=== PATIENT | female | born 1940 | race Caucasian/White ===

== ENCOUNTER 2020-02-25 08:02 | Outpatient (REF) | payer MEDICARE, OTHER, SELFPAY ==
--- NOTE | 2020-02-25 08:06 | MM_ITS ---
EXAMINATION: MM SCREENING DIGITAL BREAST TOMOSYNTHESIS, BILATERAL CLINICAL INFORMATION: Screening. Asymptomatic. The lifetime risk of breast cancer based on the Tyrer-Cuzick Model is 2.0%. COMPARISON: Mammography: February 19, 2019 and studies dating back to March 20, 2012 TECHNIQUE: Digital breast tomosynthesis is performed in both the craniocaudal and mediolateral oblique views along with computer-aided detection (CAD). Synthesized 2D images are generated from the tomosynthesis. FINDINGS: There are scattered areas of fibroglandular density (ACR BI-RADS breast composition Category b). There are no significant masses, abnormal calcifications, or other abnormalities. MM/MM tomosynthesis screening BI IMPRESSION: There are no significant changes from prior study. ASSESSMENT: BI-RADS 1: Negative RECOMMENDATION: Routine annual mammography screening. This patient's information was entered into a reminder system with a target due date for their next mammogram.
== END 2020-02-25 08:03 | disposition home or self-care (01) ==
LOC: HO.MAMMO 08:02
PROVIDERS: PCP Internal Medicine; Visit Provider Internal Medicine
DX: Z12.31 Encounter for screening mammogram for malignant neoplasm of breast (principal)
CPT/HCPCS: 77063; 77067

== ENCOUNTER 2021-02-23 07:53 | Outpatient (REF) | payer MEDICARE, OTHER, SELFPAY | END 2021-02-23 07:54 | disposition home or self-care (01) | LOC: HO.MAMMO 07:53 | PROVIDERS: PCP Internal Medicine; Visit Provider Internal Medicine | DX: Z13.89 Encounter for screening for other disorder (principal) ==

== ENCOUNTER 2021-03-23 07:20 | Outpatient (REF) | payer MEDICARE, OTHER, SELFPAY ==
--- NOTE | ~2021-03-23 | MM_ITS ---
EXAMINATION: MM SCREENING DIGITAL BREAST TOMOSYNTHESIS, BILATERAL CLINICAL INFORMATION: Screening. Asymptomatic. The lifetime risk of breast cancer based on the Tyrer-Cuzick Model is 2%. COMPARISON: Mammography: 02/25/2020, 02/19/2019, 02/06/2018 TECHNIQUE: Digital breast tomosynthesis is performed in both the craniocaudal and mediolateral oblique views along with computer-aided detection (CAD). Synthesized 2D images are generated from the tomosynthesis. FINDINGS: There are scattered areas of fibroglandular density (ACR BI-RADS breast composition Category b). There are no significant masses, abnormal calcifications, or other abnormalities. Parenchymal pattern is similar to prior exams. No developing density. There is a dermal lesion again noted overlying posterior upper left breast on MLO view. MM/MM tomosynthesis screening BI IMPRESSION: No mammographic evidence of malignancy. ASSESSMENT: BI-RADS 2: Benign RECOMMENDATION: Routine annual mammography screening. This patient's information was entered into a reminder system with a target due date for their next mammogram.
== END 2021-03-23 07:21 | disposition home or self-care (01) ==
LOC: HO.MAMMO 07:20
PROVIDERS: Visit Provider Internal Medicine
DX: Z12.31 Encounter for screening mammogram for malignant neoplasm of breast (principal)
CPT/HCPCS: 77063; 77067

== ENCOUNTER 2022-04-05 07:24 | Outpatient (REF) | payer MEDICARE, OTHER, SELFPAY ==
--- NOTE | ~2022-04-05 | MM_ITS ---
EXAMINATION: MM SCREENING DIGITAL BREAST TOMOSYNTHESIS, BILATERAL CLINICAL INFORMATION: Screening. Asymptomatic. The lifetime risk of breast cancer based on the Tyrer-Cuzick Model is 1%. COMPARISON: Mammography: 03/23/2021, 02/25/2020, 02/19/2019 TECHNIQUE: Digital breast tomosynthesis is performed in both the craniocaudal and mediolateral oblique views along with computer-aided detection (CAD). Synthesized 2D images are generated from the tomosynthesis. FINDINGS: There are scattered areas of fibroglandular density (ACR BI-RADS breast composition Category b). There are no significant masses, abnormal calcifications, or other abnormalities. Parenchymal pattern is similar to prior studies. There is no developing density or architectural abnormality. The axilla and skin contours are unremarkable. No significant changes. MM/MM tomosynthesis screening BI IMPRESSION: No mammographic evidence of malignancy. ASSESSMENT: BI-RADS 1: Negative RECOMMENDATION: Routine annual mammography screening. This patient's information was entered into a reminder system with a target due date for their next mammogram.
== END 2022-04-05 07:25 | disposition home or self-care (01) ==
LOC: HO.MAMMO 07:24
PROVIDERS: PCP Internal Medicine; Visit Provider Internal Medicine
DX: Z12.31 Encounter for screening mammogram for malignant neoplasm of breast (principal)
CPT/HCPCS: 77063; 77067

== ENCOUNTER 2023-05-14 10:46 | Inpatient (IN) | payer MEDICARE, OTHER, SELFPAY ==
--- NOTE | ~2023-05-14 | XR_ITS ---
EXAMINATION: XR KNEE, RIGHT CLINICAL INFORMATION: History of fall with knee pain COMPARISON: None available. TECHNIQUE: Four views of the right knee. FINDINGS: Bones are diffusely osteopenic. No acute fractures, subluxation or joint effusion. Mild osteophyte formation at patellofemoral and tibiofemoral compartments. Chondrocalcinosis of the menisci. There are peripheral vascular calcifications. XR/XR knee RT 3V IMPRESSION: * No acute osseous injury at the right knee. * There is chondrocalcinosis and mild osteoarthrosis of the right knee.
--- NOTE | ~2023-05-14 | XR_ITS ---
Examination: Left knee and left tibia and fibula. CLINICAL INDICATION: Status post fall with pain. COMPARISON: None recent. TECHNIQUE: Left tibia and fibula 2 views. Left knee 2 views. FINDINGS: LEFT KNEE: There is loss of medial and patellofemoral compartment joint space with mild periarticular spurring. No loose bodies, acute fracture, dislocation or subluxation seen. No abnormal joint effusion seen. LEFT TIBIA AND FIBULA: There is diffuse osteopenia. There is no visible acute fracture, dislocation or subluxation seen the soft tissues are normal. XR/XR tibia fibula LT 2V IMPRESSION: Mild degenerative changes left knee joint. There is no visible acute fracture or dislocation left lower leg or left knee. Diffuse osteopenia.
--- NOTE | ~2023-05-14 | XR_ITS ---
EXAMINATION: XR RIBS, BILATERAL CLINICAL INFORMATION: Fall. COMPARISON: None available. TECHNIQUE: 3 views of the bilateral ribs were obtained. FINDINGS: Lungs are clear. No consolidation, pneumothorax, or pleural effusion. The cardiomediastinal silhouette and pulmonary vasculature are normal. Osseous structures are unremarkable. Ribs are intact. No fractures are identified. XR/XR ribs BI 3V IMPRESSION: Unremarkable chest examination. Unremarkable right rib exam.
--- NOTE | ~2023-05-14 | XR_ITS ---
Examination: Left knee and left tibia and fibula. CLINICAL INDICATION: Status post fall with pain. COMPARISON: None recent. TECHNIQUE: Left tibia and fibula 2 views. Left knee 2 views. FINDINGS: LEFT KNEE: There is loss of medial and patellofemoral compartment joint space with mild periarticular spurring. No loose bodies, acute fracture, dislocation or subluxation seen. No abnormal joint effusion seen. LEFT TIBIA AND FIBULA: There is diffuse osteopenia. There is no visible acute fracture, dislocation or subluxation seen the soft tissues are normal. XR/XR knee LT 2V IMPRESSION: Mild degenerative changes left knee joint. There is no visible acute fracture or dislocation left lower leg or left knee. Diffuse osteopenia.
--- NOTE | ~2023-05-14 | XR_ITS ---
EXAMINATION: XR CHEST CLINICAL INFORMATION: Fall right rib pain COMPARISON: Chest radiograph from 03/09/2017 TECHNIQUE: Frontal view of the chest was obtained. FINDINGS: Slight bibasilar atelectasis, left greater than right. No pneumothorax. Trachea is midline. Cardiac mediastinal silhouette is not enlarged. Aorta demonstrates tortuosity with atherosclerotic calcifications. No large pleural effusion. Osseous structures are intact. Soft tissues are unremarkable. XR/XR chest 1V IMPRESSION: Slight bibasilar atelectasis, left greater than right.
--- NOTE | ~2023-05-14 | CT_ITS ---
EXAMINATION: CT head/brain wo IV con CLINICAL INFORMATION: Reason for Exam fall COMPARISON: None. TECHNIQUE: Contiguous axial imaging was performed from the skull base to vertex without intravenous contrast. Sagittal and coronal reformatted images were obtained. This CT examination was performed using dose optimization techniques as appropriate, variously including the following: * Automated exposure control * Adjustment of mA and/or kV according to patient size (this includes techniques or standardized protocols for targeted exams where dose is matched to indication/reason for exam; i.e. extremities or head) Use of iterative reconstruction technique DLP: 615.5 mGy-cm FINDINGS: Moderate global cerebral volume loss with small appearance of the bilateral hippocampi and ex vacuo dilatation of the temporal horns that can be correlated clinically for Alzheimer's disease. Mild cerebellar atrophy. Patchy periventricular and deep white matter hypoattenuation is nonspecific but likely reflects sequelae of mild to moderate chronic microangiopathy. No territorial loss of olguin-white differentiation. Plaque along the carotid siphons. No acute intracranial hemorrhage or extra-axial fluid collection. No mass lesion, significant mass effect, or herniation pattern. Lens replacements. Dependent retention cyst in the left maxillary sinus. Mild right sphenoid sinus mucosal disease with somewhat lobulated soft tissue with curvilinear calcifications along the floor, presumed mycetoma. Chronic sclerotic wall thickening of the right sphenoid sinus becerra compatible with chronic sinusitis. Some dependent aerated debris in the posterior right ethmoid air cell. No mastoid effusion. Osseous structures are intact. CT/CT head/brain wo IV con IMPRESSION: 1. No CT evidence of acute intracranial injury. 2. Moderate global cerebral volume loss with small appearance of the bilateral hippocampi that can be correlated clinically for Alzheimer's disease. Mild cerebellar atrophy. Mild to moderate chronic microangiopathy changes. 3. 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
[2023-05-14 11:03] VITALS: BP 129/58; PULSE 58; RESP 19; TEMP 36.6; O2SAT 95; BMI 26.6
--- NOTE | 2023-05-14 11:05 | ED.WEAKNESS ---
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 Pain in abdomen after urination. Generalized weakness. A&O x 3. Negative neuro exam. No CP or SOB HX: dementia, afib, not taking blood thinner. Patient normally live at independent living facility get limited help from caregiver about 2 hours a week help, patient took a shower by herself walked out of the shower and fell next to her bed, declined hitting her head, no blood thinner. Related Data Home Medications Medication Instructions Recorded Confirmed donepezil 5 mg tablet 5 mg PO DAILY 02/10/22 hydralazine 50 mg tablet 50 mg PO TID 02/10/22 lisinopril 20 mg tablet 20 mg PO BID 02/10/22 memantine 5 mg tablet 5 mg PO BID 02/10/22 metoprolol succinate 25 mg 25 mg PO DAILY 02/10/22 tablet,extended release 24 hr rivaroxaban 15 mg tablet (Xarelto) 15 mg PO DAILY 02/10/22 Allergies Allergy/AdvReac Type Severity Reaction Status Date / Time No Known Allergies Allergy Verified 05/14/23 11:02 [No Known Allergies*] Review of Systems Review of Systems: All other systems are reviewed and are negative Constitutional: Reports as per HPI and Reports no additional constitutional complaints Eyes: Reports as per HPI and Reports no additional eye complaints Reports system reviewed and no additional complaints, except as documented Cardiovascular: Reports as per HPI and Reports no additional cardiovascular complaints Respiratory: Reports as per HPI and Reports no additional respiratory complaints Gastrointestinal: Reports as per HPI and Reports no additional gastrointestinal complaints Genitourinary: Reports no additional female genitourinary complaints Musculoskeletal: Reports no additional musculoskeletal complaints Skin/Breast: Reports system reviewed and no additional complaints, except as docu Psychiatric: Reports no additional psychiatric complaints Endocrine: Reports no additional endocrine complaints Hematologic/Lymphatic: Reports no additional hematologic/lymphatic complaints Allergic/Immunologic: Reports no additional allergic/immunologic complaints Reports system reviewed and no additional complaints, except as documented and Reports Abnormal speech present [facility] Social History Social History Advance Directives: No Advance Directives Information Provided: Yes Physical Exam Vital Signs: Vital Signs: Last Vital Signs Temp 97.8 F 05/14/23 15:55 Pulse 60 05/14/23 15:55 Resp 20 05/14/23 15:55 BP 159/70 H 05/14/23 15:55 Pulse Ox 98 05/14/23 15:55 O2 Del Method Room Air 05/14/23 15:55 BMI result Body Mass Index 26.6 Vital signs have been reviewed and appear to be correct. Blood pressure elevated. Heart rate normal. Respiratory rate normal. Temperature normal. Oxygen saturation normal. Appearance: Alert. Oriented X2 Not to time. No acute distress. Head: Normal external exam. Normocephalic. Atraumatic. No Cobb signs noted. No raccoon eyes noted Eyes: PERRLA. EOMI. Conjunctiva and sclera normal. Eyelids normal. ENT: TM's Normal. Pharynx normal. Uvula midline. Moist mucous membranes. No trismus noted. No drooling noted. No muffled voice noted. Neck: Normal inspection. Neck supple. FROM. No adenopathy. Thyroid Normal. No meningeal signs. No neck mass noted. CVS: Normal heart rate and rhythm. Heart sound normal. No murmurs noted. Pulses normal throughout. Respiratory: No respiratory distress. Painless inspiration. Breath sounds normal. No wheezes/rales/rhonchi noted. Chest nontender. No accessory muscle usage noted or decreased air movement noted. Abdomen: Soft and nontender. Bowel sounds normal in all 4 quadrants. No distention noted. No organomegaly noted. No visible injury noted. Back: No CVA tenderness. Full range of motion noted. Skin: Skin warm and dry. Normal skin color. Normal skin turgor. No rashes/lesions/lacerations noted. Extremities: No lower extremity edema. Extremities exhibit normal range of motion. Extremities nontender. Neuro: Oriented X2. Cranial nerve exam: II-XII are grossly intact No motor deficit. No sensory deficit. Reflexes normal. Const: General: cooperative, no acute distress, alert and awake Nutritional Appearance: well nourished Orientation/consciousness: oriented to person, oriented to place and patient oriented x3 Limitations: no limitations HEENT: Head: Yes normal to inspection and Yes atraumatic Ears: external ears normal General nose exam: Normal external nose present Face and sinus: Yes normal facial exam Eyes: General: appearance normal, both eyes and all related structures Alignment and Position: alignment normal Periorbital: periorbital findings normal Eyelids: Yes eyelids normal Conjunctivae: conjunctivae normal Sclerae: sclerae normal Neck: Neck: Yes normal visual inspection and Yes full ROM Resp: Effort & Inspection: normal respiratory effort and able to speak in complete sentences Auscultation: clear to auscultation bilaterally Cardio: Rate: regular rate Rhythm: regular rhythm Neuro: General: oriented to person, oriented to place, patient oriented x3 and moves all extremities Cognition (Neuro): normal cognition Gait exam (Neuro): Normal gait present Sensory Exam: Normal double simultaneous stimulation for sensation Extrem: General: Yes normal to inspection, Yes full ROM and Yes capillary refill normal Psych: Appearance: grossly normal Mental Status: mental status grossly normal Speech and movement: Normal speech and movement present Affect: normal affect Attitude: cooperative Thought process: Normal thought process present Thought content: Normal thought content present Insight: Good insight present (Psych) Judgement: Good judgement present (Psych) Course Course Course Narrative: 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 Pain in abdomen after urination. Generalized weakness. Negative neuro exam. No CP or SOB HX: dementia, afib, not taking blood thinner. Patient normally live at independent living facility get limited help from caregiver about 2 hours a week help, patient took a shower by herself walked out of the shower and fell next to her bed patient declined hitting her head, LOC, no blood thinner. RME: NAD, LS CTA, A&O to person and place, KAYE x 4 equally with good strength RME done by Flor Reevaluation(s) Reevaluation #1: acute rhabdomyolysis will admit for IV hydration and renal function monitoring. Time: 15:07 Medications Administered Discontinued Medications Generic Name Dose Route Start Last Admin Trade Name Freq PRN Reason Stop Dose Admin Sodium Chloride 1,000 mls @ 999 mls/hr 05/14/23 12:27 05/14/23 12:49 Ns IV 05/14/23 13:27 999 mls/hr .[id number] ONE Administration Medical Decision Making Differential Diagnosis Differential Diagnoses: The differential diagnosis associated with the presentation includes ( Rhabdomyolysis, ACS, pneumonia, pneumothorax, dehydration, UTI, severe anemia, electrolyte abnormality.) Admission/Observation Consideration of admission/observation: Escalation of care including admission/observation considered Consult Healthcare Provider Management of the patient was discussed with: Hospitalist ( Dr. Berg) Lab Data MDM Lab Attestation statement: I reviewed the patient's lab results. 05/14/23 12:47 05/14/23 12:47 Labs: Lab Results 05/14/23 05/14/23 05/14/23 Range/Units 12:27 12:47 14:08 WBC 13.3 H (4.8-10.8) X10*3/uL RBC 4.43 (4.20-5.50) X10*6/uL Hgb 13.4 (12.0-16.0) g/dl Hct 40.9 (37.0-47.0) % MCV 92.3 (80.0-98.0) fL MCH 30.2 (27.0-33.0) pg MCHC 32.8 (31.0-35.0) g/dl RDW 14.1 (11.0-16.0) % Plt Count 229 (160-400) X10*3/uL MPV 10.8 (9.4-12.3) fL Immature Gran % (Auto) 0.5 H (0.0-0.4) % Neut % (Auto) 84.1 H (45-73) % Lymph % (Auto) 7.1 L (20-40) % Barber % (Auto) 6.8 (2-11) % Eos % (Auto) 0.8 (0-4) % Baso % (Auto) 0.7 (0-2) % Lymph # (Auto) 0.9 L (1.2-4.9) X10*3/uL Barber # (Auto) 0.9 (0.1-1.2) X10*3/uL Eos # (Auto) 0.1 (0.0-0.4) X10*3/uL Baso # (Auto) 0.1 (0.0-0.2) X10*3/uL Abs Immat Gran (auto) 0.07 H (0.00-0.03) X10*3/uL Absolute Neuts (auto) 11.2 H (2.0-8.3) x10*3/uL Absolute Nucleated RBC 0.000 (0.0-0.012) X10*3/uL Nucleated RBC % (auto) 0.0 (0.0-0.2) /100WBC Sodium 134 L (135-145) mmol/L Potassium 3.9 (3.3-5.1) mmol/L Chloride 103 (96-108) mmol/L Carbon Dioxide 22 (22-29) mmol/L Anion Gap 13 (12-20) BUN 20 H (9-16) mg/dL Creatinine 0.72 (0.5-1.4) mg/dL Estim Creat Clear Calc 58.1 Estimated GFR > 60 Random Glucose 89 (60-115) mg/dL Calcium 9.4 (8.4-10.2) mg/dL Total Bilirubin 1.3 H (0.0-1.0) mg/dL AST 97 H (5-31) U/L ALT 28 (0-31) U/L Alkaline Phosphatase 92 (39-117) U/L Total Creatine Kinase 3977 H (26-140) U/L Troponin I High Sens (<3.5-17.0) ng/L B-Natriuretic Peptide 600 H (<100) pg/mL Total Protein 7.6 (6.5-8.0) g/dL Albumin 4.1 (3.5-5.0) g/dL Urine Color Yellow Urine Appearance Clear Urine pH 6.0 (5.0-9.0) Ur Specific Isle 1.010 (1.005-1.025) Urine Protein 30 (1+) H (Neg-Trace) mg/dL Urine Glucose (UA) Negative (Negative) mg/dL Urine Ketones Negative (Negative) mg/dL Urine Blood Moderate (2+) H (Negative) Urine Nitrite Negative (Negative) Ur Leukocyte Esterase Negative (Negative) Urine RBC 0-2 (0-2) /HPF Urine WBC 0-5 (0-5) /HPF Ur Squamous Epith Cells 0-2 (0-2) /HPF Urine Bacteria None Seen (None Seen) Hyaline Casts 0-2 (0-2) /LPF Influenza Type A (PCR) NEGATIVE (Negative) Influenza Type B (PCR) NEGATIVE (Negative) RSV RNA Qual (PCR) NEGATIVE (Negative) SARS-CoV-2 RNA (RT-PCR) NEGATIVE (Negative) 05/14/23 Range/Units 15:27 WBC (4.8-10.8) X10*3/uL RBC (4.20-5.50) X10*6/uL Hgb (12.0-16.0) g/dl Hct (37.0-47.0) % MCV (80.0-98.0) fL MCH (27.0-33.0) pg MCHC (31.0-35.0) g/dl RDW (11.0-16.0) % Plt Count (160-400) X10*3/uL MPV (9.4-12.3) fL Immature Gran % (Auto) (0.0-0.4) % Neut % (Auto) (45-73) % Lymph % (Auto) (20-40) % Barber % (Auto) (2-11) % Eos % (Auto) (0-4) % Baso % (Auto) (0-2) % Lymph # (Auto) (1.2-4.9) X10*3/uL Barber # (Auto) (0.1-1.2) X10*3/uL Eos # (Auto) (0.0-0.4) X10*3/uL Baso # (Auto) (0.0-0.2) X10*3/uL Abs Immat Gran (auto) (0.00-0.03) X10*3/uL Absolute Neuts (auto) (2.0-8.3) x10*3/uL Absolute Nucleated RBC (0.0-0.012) X10*3/uL Nucleated RBC % (auto) (0.0-0.2) /100WBC Sodium (135-145) mmol/L Potassium (3.3-5.1) mmol/L Chloride (96-108) mmol/L Carbon Dioxide (22-29) mmol/L Anion Gap (12-20) BUN (9-16) mg/dL Creatinine (0.5-1.4) mg/dL Estim Creat Clear Calc Estimated GFR Random Glucose (60-115) mg/dL Calcium (8.4-10.2) mg/dL Total Bilirubin (0.0-1.0) mg/dL AST (5-31) U/L ALT (0-31) U/L Alkaline Phosphatase (39-117) U/L Total Creatine Kinase 3291 H (26-140) U/L Troponin I High Sens 54.6 H* (<3.5-17.0) ng/L B-Natriuretic Peptide (<100) pg/mL Total Protein (6.5-8.0) g/dL Albumin (3.5-5.0) g/dL Urine Color Urine Appearance Urine pH (5.0-9.0) Ur Specific Isle (1.005-1.025) Urine Protein (Neg-Trace) mg/dL Urine Glucose (UA) (Negative) mg/dL Urine Ketones (Negative) mg/dL Urine Blood (Negative) Urine Nitrite (Negative) Ur Leukocyte Esterase (Negative) Urine RBC (0-2) /HPF Urine WBC (0-5) /HPF Ur Squamous Epith Cells (0-2) /HPF Urine Bacteria (None Seen) Hyaline Casts (0-2) /LPF Influenza Type A (PCR) (Negative) Influenza Type B (PCR) (Negative) RSV RNA Qual (PCR) (Negative) SARS-CoV-2 RNA (RT-PCR) (Negative) Independent Interpretation I performed an independent interpretation of an: EKG ( Normal sinus rhythm at 57 beats per minute sinus bradycardia with premature sinus bradycardia at 57 beats per minute with PACs, no change from prior EKG.) and CT Scan ( head: No acute intracranial pathology.) Radiology Impression Discussion of test interpretation with radiology: I have reviewed the radiologist's reading. Discharge Plan Discharge Clinical Impression: Rhabdomyolysis, Fall Patient Disposition: Admitted As Inpatient
--- NOTE | 2023-05-14 11:12 | ECG_ITS ---
Test Reason : fall Blood Pressure : / mmHG Vent. Rate : 057 BPM Atrial Rate : 057 BPM P-R Int : 170 ms QRS Dur : 086 ms QT Int : 472 ms P-R-T Axes : 077 001 025 degrees QTc Int : 459 ms Sinus bradycardia with Premature atrial complexes Otherwise normal ECG When compared with ECG of 09-MAR-2017 07:59, Premature atrial complexes are now Present QT has lengthened Referred By: Laura Ayala Electronically Signed By:FIDEL MCGOVERN MD
[2023-05-14] MEDS: 0.9 % Sodium Chloride 1,000 ML 999 ML IV ×2 (12:49→16:29)
[2023-05-14 12:54] LABS: MANUAL DIFF FLAG NO
[2023-05-14 12:57] LABS: Basophils Absolute Auto 0.1 X10*3/uL (0.0-0.2); Basophils Percent Auto 0.7 % (0-2); Eosinophils Absolute Auto 0.1 X10*3/uL (0.0-0.4); Eosinophils Percent Auto 0.8 % (0-4); Hematocrit 40.9 % (37.0-47.0); Hemoglobin 13.4 g/dl (12.0-16.0); Imm Gran Abs Auto 0.07 X10*3/uL (0.00-0.03); Imm Gran Pct Auto 0.5 % (0.0-0.4); Lymphocytes Absolute Auto 0.9 X10*3/uL (1.2-4.9); Lymphocytes Percent Auto 7.1 % (20-40); Mean Corpuscular HGB Conc 32.8 g/dl (31.0-35.0); Mean Corpuscular Hemoglobin 30.2 pg (27.0-33.0); Mean Corpuscular Volume 92.3 fL (80.0-98.0); Mean Platelet Volume 10.8 fL (9.4-12.3); Monocytes Absolute Auto 0.9 X10*3/uL (0.1-1.2); Monocytes Percent Auto 6.8 % (2-11); Neutrophils Absolute Auto 11.2 x10*3/uL (2.0-8.3); Neutrophils Percent Auto 84.1 % (45-73); Platelet Count 229 X10*3/uL (160-400); Red Blood Count 4.43 X10*6/uL (4.20-5.50); Red Cell Distribution Width 14.1 % (11.0-16.0); White Blood Count 13.3 X10*3/uL (4.8-10.8)
[2023-05-14 13:10] LABS: Influenza A PCR NEGATIVE (Negative); Influenza B PCR NEGATIVE (Negative); Resp Syncy Virus RNA Qual PCR NEGATIVE (Negative); SARS COV2 PCR INHOUSE NEGATIVE (Negative)
[2023-05-14 13:14] LABS: Alanine Aminotransferase 28 U/L (0-31); Albumin Level 4.1 g/dL (3.5-5.0); Alkaline Phosphatase 92 U/L (39-117); Anion Gap 13 (12-20); Aspartate Amino Transferase 97 U/L (5-31); Bilirubin Total 1.3 mg/dL (0.0-1.0); Blood Urea Nitrogen 20 mg/dL (9-16); Calcium 9.4 mg/dL (8.4-10.2); Carbon Dioxide 22 mmol/L (22-29); Chloride 103 mmol/L (96-108); Creatinine Clr Calc Pharmacy 58.1; Estimated Glomerular Filt Rate > 60; Glucose Random 89 mg/dL (60-115); Potassium 3.9 mmol/L (3.3-5.1); Sodium 134 mmol/L (135-145); Total Protein 7.6 g/dL (6.5-8.0)
[2023-05-14 13:18] LABS: B Type Natriuretic Peptide 600 pg/mL (<100)
[2023-05-14 14:18] LABS: Appearance Urine Clear; Color Urine Yellow; Glucose Urine UA Negative (Negative); Leukocyte Esterase Urine Negative (Negative); Nitrite Urine Negative (Negative); UMIC TRIGGER UACC YES; Urine Blood Moderate (2+) (Negative); Urine Ketones Negative (Negative); Urine Protein 30 (1+) mg/dL (Neg-Trace)
[2023-05-14 14:27] LABS: Bacteria Urine None Seen (None Seen); Hyaline Casts Urine 0-2 /LPF (0-2); RBC Urine 0-2 /HPF (0-2); Squamous Epithelial Cell Urine 0-2 /HPF (0-2); WBC Urine 0-5 /HPF (0-5)
[2023-05-14 15:55] VITALS: BP 159/70; PULSE 60; RESP 20; TEMP 36.6; O2SAT 98
[2023-05-14 16:01] LABS: Troponin-I High Sensitivity 54.6 ng/L (<3.5-17.0)
--- NOTE | 2023-05-14 16:09 | PM.IMHP ---
History of Present Illness Date of Service: 05/14/23 Attending physician on admission: Ken Dorado Chief Complaint: Fall at home Pt is an 82-year-old female with a PMH significant for?unspecified dementia, HTN, HLD, paroxysmal AFib no longer on anticoagulation, and recurrent UTIs who presents to the ED for evaluation of left-sided chest and leg pain after mechanical fall at home. Patient with unspecified dementia at baseline, lives at [facility] living at [facility] with visiting home connect lpn 3 times a week for 1 1/2 hours. Aide arrived at apartment earlier today to help pt take a showe and found the pt on the floor of the bathroom. Pt had apparently taken a shower on her own and fallen when attempting to get out. Pt was found awake and alert, apparently at baseline mentally. She denied LOC or head strike. Reports she slipped getting out of the shower. Was on the floor for an unknonw amount of time. Pt also reports left-sided rib and leg pain, particularly from the knee to ankle. Denies chest pain/pressure, palpitations. Shortness of breath. Denies fever, chills, nausea, vomiting, abdominal pain. In the ED pt was Labs were significant for leukocytosis of 13.3, sodium 134, bilirubin 1.3, AST 97, CPK 3977 with repeat 3291 after fluids, initial troponin 54.6, BNP elevated 600. UA positive for urine protein of 30, moderate urine blood, negative for nitrites and leukocyte esterase no bacteria seen. CXR showed slight bibasilar atelectasis, left greater than right. Rib x-ray pending. CT?showed no evidence of acute intracranial injury, but did show moderate global cerebral volume loss, mild cerebral atrophy, and mild to moderate chronic microangiopathy. EKG demonstrated bradycardia 57 with PACs but without significant ST elevations or depressions. Pt was treated with 2 L IVF. Pt will be admitted to the hospital for treatment further evaluation of rhabdomyolysis in the setting of mechanical fall at home. Review of Systems Review of Systems: Mechanical fall at home Left rib pain Left knee and lower leg pain No chest pain/pressure, palpitations Denies SOB No fever, chills, N/V, diarrhea, abdominal pain PMFSH Medical History Paroxysmal A-fib HTN (hypertension) HLD (hyperlipidemia) Dementia, unspecified, without behavioral disturbance Social History Household Members: Other Housing: Assisted Living Facility Do you presently have visiting nurse or other home services: No Patient Tobacco Use Status: Former Tobacco user Quit Date: 20 years ago Tobacco use type: Cigarette Years Smoked: 10 Smoked in Last 30 Days: No Patient Interested in Nicotine Replacement: No Patient Given Instructions on How to Stop Smoking: No Second Hand Smoke Exposure: No Use of substances other than those prescribed or required for medical reasons: No Currently Displaying Signs/Symptoms of Drug Intoxication Withdrawal: No Any prior treatment program specific to substance use: No Have you been hit, kicked, punched, or otherwise hurt by someone within the past year? If so, by whom?: No Do you feel safe in your current relationship?: No Is there a partner from a previous relationship who is making you feel unsafe now?: No Are you made to feel afraid or neglected: No Advance Directives: No Advance Directives Information Provided: Yes Do you have thoughts of harming others: None Do you have a plan to hurt others: No Plan Recently lost weight without trying: No Eating poorly because of decreased appetite: No Nutrition Risks: No Nutritional Risk Patient : No : No Poor oral hygiene: No Meds Allergies Allergy/AdvReac Type Severity Reaction Status Date / Time No Known Allergies Allergy Verified 05/14/23 11:02 [No Known Allergies*] Home Medications Medication Instructions Recorded Confirmed Last Taken Type hydralazine 50 mg tablet 50 mg PO BID 02/10/22 05/14/23 05/13/23 History lisinopril 20 mg tablet 20 mg PO BID 02/10/22 05/14/23 05/13/23 History memantine 5 mg tablet 5 mg PO BID 02/10/22 05/14/23 05/13/23 History metoprolol succinate 25 mg 25 mg PO DAILY 02/10/22 05/14/23 05/13/23 History tablet,extended release 24 hr aspirin 81 mg chewable tablet 81 mg PO DAILY 05/14/23 05/14/23 05/13/23 History Physical Exam Vital Signs and Narrative: Vital Signs: Last Vital Signs Temp 97.8 F 05/14/23 15:55 Pulse 60 05/14/23 15:55 Resp 20 05/14/23 15:55 BP 159/70 H 05/14/23 15:55 Pulse Ox 98 05/14/23 15:55 O2 Del Method Room Air 05/14/23 15:55 BMI result Body Mass Index 26.6 Constitutional: Alert, pleasantly confused, in no acute distress. Mental Status: Oriented to person and partly to place and situation, not to time. Eyes: Pupils are equal, round, and reactive to light. Ear, Nose, and Throat: Oropharynx clear, mucous membranes moist. Ears and nose without deformities. Trachea midline. Respiratory: Clear to auscultation bilaterally. No wheezing, rales, or rhonchi. Cardiovascular: S1, S2 regular. 3/6 murmur heard at left sternal border. Gastrointestinal: Abdomen soft, non-tender, non-distended. Normal bowel sounds. Neurologic: Cranial nerves II-XII are grossly intact bilaterally. No focal neurological deficits. Moves all extremities spontaneously. Skin: Warm, dry. Musculoskeletal: Tenderness to palpation of left side of chest wall. Extremities: No edema. Areas of ecchymosis on upper left forearm. Tenderness to palpation of lateral aspect of knee. Psychiatric: Pleasantly confused, coorperative. Results Labs 05/15/23 05:49 05/15/23 05:49 Labs: Laboratory Results - last 24 hr 05/14/23 05/14/23 05/14/23 12:27 12:47 14:08 MCV 92.3 MCH 30.2 MCHC 32.8 RDW 14.1 Plt Count 229 MPV 10.8 Immature Gran % (Auto) 0.5 H Neut % (Auto) 84.1 H Lymph % (Auto) 7.1 L Harvey % (Auto) 6.8 Eos % (Auto) 0.8 Baso % (Auto) 0.7 Lymph # (Auto) 0.9 L Harvey # (Auto) 0.9 Eos # (Auto) 0.1 Baso # (Auto) 0.1 Abs Immat Gran (auto) 0.07 H Absolute Neuts (auto) 11.2 H Absolute Nucleated RBC 0.000 Nucleated RBC % (auto) 0.0 Anion Gap 13 Estim Creat Clear Calc 58.1 Estimated GFR > 60 Random Glucose 89 Calcium 9.4 Total Bilirubin 1.3 H AST 97 H ALT 28 Alkaline Phosphatase 92 Total Creatine Kinase 3977 H B-Natriuretic Peptide 600 H Total Protein 7.6 Albumin 4.1 Urine Color Yellow Urine Appearance Clear Urine pH 6.0 Ur Specific [place] 1.010 Urine Protein 30 (1+) H Urine Glucose (UA) Negative Urine Ketones Negative Urine Blood Moderate (2+) H Urine Nitrite Negative Ur Leukocyte Esterase Negative Urine RBC 0-2 Urine WBC 0-5 Ur Squamous Epith Cells 0-2 Urine Bacteria None Seen Hyaline Casts 0-2 Influenza Type A (PCR) NEGATIVE Influenza Type B (PCR) NEGATIVE RSV RNA Qual (PCR) NEGATIVE SARS-CoV-2 RNA (RT-PCR) NEGATIVE 05/14/23 15:27 MCV MCH MCHC RDW Plt Count MPV Immature Gran % (Auto) Neut % (Auto) Lymph % (Auto) Harvey % (Auto) Eos % (Auto) Baso % (Auto) Lymph # (Auto) Harvey # (Auto) Eos # (Auto) Baso # (Auto) Abs Immat Gran (auto) Absolute Neuts (auto) Absolute Nucleated RBC Nucleated RBC % (auto) Anion Gap Estim Creat Clear Calc Estimated GFR Random Glucose Calcium Total Bilirubin AST ALT Alkaline Phosphatase Total Creatine Kinase 3291 H B-Natriuretic Peptide Total Protein Albumin Urine Color Urine Appearance Urine pH Ur Specific [place] Urine Protein Urine Glucose (UA) Urine Ketones Urine Blood Urine Nitrite Ur Leukocyte Esterase Urine RBC Urine WBC Ur Squamous Epith Cells Urine Bacteria Hyaline Casts Influenza Type A (PCR) Influenza Type B (PCR) RSV RNA Qual (PCR) SARS-CoV-2 RNA (RT-PCR) Imaging Radiologist's Impressions: Impressions Chest X-Ray 05/14/23 11:25 IMPRESSION: Slight bibasilar atelectasis, left greater than right. Assessment and Plan (1) Rhabdomyolysis: Status: Acute Plan Pt is an 82-year-old female with a PMH significant for?unspecified dementia, HTN, HLD, paroxysmal AFib no longer on anticoagulation, and recurrent UTIs who presents to the ED for evaluation of left-sided chest and leg pain after mechanical fall at home. Pt will be admitted to the hospital for treatment further evaluation of rhabdomyolysis in the setting of mechanical fall at home. Rhabdomyolysis In the setting of unwitnessed fall at home Creatinine kinase 3977 with repeat 3291 after IVF UA clear yellow Patient received 2 L IVF in ED Will place on maintenance fluids at 100 mls/hr Follow CPK PT consult Musculoskeletal pain Pt complains of left-sided rib and lower leg pain X-ray of ribs pending Will get x-ray of left knee and lower leg Analgesics for pain management PT consult Leukocytosis WBCs 13.3 times presentation Likely reactionary, secondary to fall and rhabdomyolysis No source of bacterial infection: UA negative, CXR negative, patient afebrile No indication for antibiotics at this time Elevated BNP Likely secondary to rhabo No hx of CHF, appears euvolemic, CXR clear Treat as above Dementia unspecified CT of head moderate global cerebral volume loss with small appearance of bilateral hippocampi that can be correlated clinically for Alzheimer's disease, also found mild cerebral atrophy with mild to moderate chronic microangiopathy changes Patient appears to be at baseline according to family Continue memantine Paroxysmal AFib Was taken off Xarelto 6 months ago due to fall risk Continue metoprolol HTN Continue hydralazine, lisinopril DNR/DNI Attending:?Dr. Dordao DVT Prophylaxis: Lovenox Pt will require a hospitalization of at least two nights for treatment of?acute traumatic rhabdomyolysis in the setting of mechanical fall at home. Patient required aggressive IVF repletion, close monitoring of labs, and PT evaluation for safe disposition home. Quality Stroke Does the patient have a stroke diagnosis?: No VTE Prior VTE?: No VTE Risk Level:: Medical - moderate - high VTE Device Contraindication: Treatment Not Indicated VTE Drug Contraindication: N/A - Med Ordered
--- NOTE | 2023-05-14 17:16 | PHA.MEDREC ---
Pharmacy Consult ? Medication Reconciliation Pharmacy has completed the medication reconciliation.patients daughter brought in rx bottles. Medication confirmed. Cynthia [facility] Winder
[2023-05-14 17:48] VITALS: BP 180/80; PULSE 65; RESP 18; O2SAT 95
[2023-05-14 18:12] LABS: Troponin-I High Sensitivity 49.8 ng/L (<3.5-17.0)
[2023-05-14] MEDS: Enoxaparin Sodium 40 MG/0.4 ML SYRINGE SUBCUT (18:27)
[2023-05-14] MEDS: Metoprolol Succinate ER 25 MG TAB.ER.24H PO (18:28)
[2023-05-14] MEDS: 0.9 % Sodium Chloride 1,000 ML 100 ML IVCONT (18:31)
[2023-05-14 19:39] VITALS: BP 159/69; PULSE 68; RESP 18; TEMP 36.1; O2SAT 96
[2023-05-14 19:54] VITALS: BMI 27.6
[2023-05-14] MEDS: Acetaminophen 325 MG TABLET 650 MG PO (20:30)
[2023-05-14] MEDS: Melatonin 3 MG TABLET 6 MG PO (20:31)
[2023-05-14] MEDS: Docusate Sodium 100 MG CAPSULE PO (20:31)
[2023-05-14] MEDS: Memantine HCl 5 MG TABLET PO (20:31)
[2023-05-14] MEDS: hydrALAZINE HCl 50 MG TABLET PO (20:31)
[2023-05-14] MEDS: lisinopriL 20 MG TABLET PO (20:31)
[2023-05-15] VITALS (7 sets, daily range): BP systolic 120–165; BP diastolic 57–77; PULSE 51–63; RESP 16–18; TEMP 36–37.1; O2SAT 93–96
[2023-05-15] MEDS: 0.9 % Sodium Chloride 1,000 ML 100 ML IVCONT ×2 (03:52→14:34)
[2023-05-15] MEDS: Memantine HCl 5 MG TABLET PO ×2 (07:28→20:52)
[2023-05-15] MEDS: Metoprolol Succinate ER 25 MG TAB.ER.24H PO (07:28)
[2023-05-15] MEDS: hydrALAZINE HCl 50 MG TABLET PO ×2 (07:28→20:52)
[2023-05-15] MEDS: lisinopriL 20 MG TABLET PO (07:29)
[2023-05-15] MEDS: Aspirin 81 MG TAB.CHEW PO (07:29)
[2023-05-15 07:56] LABS: Hematocrit 33.2 % (37.0-47.0); Hemoglobin 11.1 g/dl (12.0-16.0); Mean Corpuscular HGB Conc 33.4 g/dl (31.0-35.0); Mean Corpuscular Hemoglobin 30.7 pg (27.0-33.0); Mean Corpuscular Volume 91.7 fL (80.0-98.0); Mean Platelet Volume 11.6 fL (9.4-12.3); Platelet Count 217 X10*3/uL (160-400); Red Blood Count 3.62 X10*6/uL (4.20-5.50); Red Cell Distribution Width 14.5 % (11.0-16.0); White Blood Count 6.2 X10*3/uL (4.8-10.8)
[2023-05-15 08:07] LABS: Anion Gap 10 (12-20); Blood Urea Nitrogen 15 mg/dL (9-16); Calcium 8.1 mg/dL (8.4-10.2); Carbon Dioxide 22 mmol/L (22-29); Chloride 110 mmol/L (96-108); Creatinine Clr Calc Pharmacy 67.5; Estimated Glomerular Filt Rate > 60; Glucose Random 82 mg/dL (60-115); Potassium 3.5 mmol/L (3.3-5.1); Sodium 138 mmol/L (135-145)
--- NOTE | 2023-05-15 14:36 | HO.PM.IMPN ---
Subjective Subjective Date of Service: 05/15/23 Interval History: rhabomylysis ,fall Review of Systems seems improving still generlaised weak Physical Exam Vital Signs: Vital Signs: Last Vital Signs Temp 97.4 F 05/15/23 07:33 Pulse 51 05/15/23 08:05 Resp 17 05/15/23 07:33 BP 139/69 05/15/23 08:05 Pulse Ox 94 05/15/23 08:05 O2 Del Method Room Air 05/15/23 07:33 BMI result Body Mass Index 27.6 Appearance: Alert.? Oriented ,more awake. cvs: rrr, [id number] . res: clear to auscultation ,no rhonchii or wheezing abd: no rebound or guarding ,nt, bs present. ext pulses present , no cyanosis gonzales changes -please see h&p. neuro: nonfocal. Objective Data Active Medications Acetaminophen (Acetaminophen 325 Mg Tablet) 650 mg PO Q6H PRN PRN Reason: Pain, Mild (Pain Scale 1-3) Last Admin: 05/14/23 20:30 Dose: 650 mg Documented By: PRIMO Aspirin (Aspirin 81 Mg Tab.Chew) 81 mg PO DAILY [facility] Last Admin: 05/15/23 07:29 Dose: 81 mg Documented By: MARYLIN Benzonatate (Benzonatate 100 Mg Capsule) 100 mg PO TID PRN PRN Reason: Cough Diphenhydramine HCl (Diphenhydramine Hcl 25 Mg Capsule) 25 mg PO BEDTIME PRN PRN Reason: Insomnia Docusate Sodium (Docusate Sodium 100 Mg Capsule) 100 mg PO DAILY PRN PRN Reason: Constipation Last Admin: 05/14/23 20:31 Dose: 100 mg Documented By: PRIMO Enoxaparin Sodium (Enoxaparin Sodium 40 Mg/0.4 Ml Syringe) 40 mg SUBCUT Q24H [facility] Last Admin: 05/14/23 18:27 Dose: 40 mg Documented By: YUKO Hydralazine HCl (Hydralazine Hcl 50 Mg Tablet) 50 mg PO BID [facility]; Protocol Last Admin: 05/15/23 07:28 Dose: 50 mg Documented By: MARYLIN Sodium Chloride (Ns) 1,000 mls @ 100 mls/hr IVCONT .Q10H [facility] Last Admin: 05/15/23 14:34 Dose: 100 mls/hr Documented By: MARYLIN Memantine (Memantine Hcl 5 Mg Tablet) 5 mg PO BID [facility] Last Admin: 05/15/23 07:28 Dose: 5 mg Documented By: MARYLIN Metoprolol Succinate (Metoprolol Succinate Er 25 Mg Tab.Er.24h) 25 mg PO DAILY [facility]; Protocol Last Admin: 05/15/23 07:28 Dose: 25 mg Documented By: MARYLIN Sodium Chloride (0.9 % Sodium Chloride Flush 3 Ml Syringe) 3 ml IVFLUSH QSHIFT [facility] Last Admin: 05/15/23 07:29 Dose: Not Given Documented By: MARYLIN Non-Admin Reason: IV Running Labs 05/15/23 05:49 05/15/23 05:49 Labs: Laboratory Results - last 24 hr 05/14/23 05/15/23 15:27 05:49 MCV 91.7 MCH 30.7 MCHC 33.4 RDW 14.5 Plt Count 217 MPV 11.6 Absolute Nucleated RBC 0.000 Nucleated RBC % (auto) 0.0 Anion Gap 10 L Estim Creat Clear Calc 67.5 Estimated GFR > 60 Random Glucose 82 Calcium 8.1 L D Total Creatine Kinase 3291 H 1280 H Assessment and Plan (1) Rhabdomyolysis: Status: Acute (2) Fall: Status: Acute Plan 82-year-old female with a PMH significant for?unspecified dementia, HTN, HLD, paroxysmal AFib no longer on anticoagulation, and recurrent UTIs who presents to the ED for evaluation of left-sided chest and leg pain after mechanical fall at home. Pt will be admitted to the hospital for treatment further evaluation of rhabdomyolysis in the setting of mechanical fall at home. Rhabdomyolysis In the setting of unwitnessed fall at home Creatinine kinase 3977- 3291 -1280 mild trop leak(possible related rhabdomylysis) ,ekg seems fine ,no chest pain continue maintenance fluids at 100 mls/hr Follow CPK Musculoskeletal pain Pt complains of left-sided rib and lower leg pain X-ray of ribs -seems Unremarkable . right nad left knee xray-Mild degenerative changes left knee joint. head ct -neg Analgesics for pain management,PT consult Leukocytosis WBCs 13.3 times presentation-resolved. Likely reactionary, secondary to fall and rhabdomyolysis No source of bacterial infection: UA negative, CXR negative, patient afebrile Elevated BNP No hx of CHF, appears euvolemic, CXR clear Treat as above Dementia unspecified CT of head moderate global cerebral volume loss with small appearance of bilateral hippocampi that can be correlated clinically for Alzheimer's disease, also found mild cerebral atrophy with mild to moderate chronic microangiopathy changes Patient appears to be at baseline according to family Continue memantine Paroxysmal AFib Was taken off Xarelto 6 months ago due to fall risk Continue metoprolol HTN Continue hydralazine, lisinopril DVT Prophylaxis: Lovenox ongoing hospitlisation need:treatment of?acute traumatic rhabdomyolysis in the setting of mechanical fall at home. Patient required aggressive IVF repletion, close monitoring of labs, and PT evaluation for safe disposition home. Quality Stroke Does the patient have a stroke diagnosis?: No VTE Prior VTE?: No VTE Risk Level:: Medical - moderate - high VTE Device Contraindication: Treatment Not Indicated VTE Drug Contraindication: N/A - Med Ordered
--- NOTE | 2023-05-15 16:08 | MHC.CM.PN ---
CM MET WITH PT AND SON AT BEDSIDE PT IS A RESIDENT OF [facility], HOWEVER THEY ARE CONSIDERING MOVING HER TO THE [facility] IN THE NEAR FUTURE PT USUALLY USES A CANE AT HOME PT HAS A HCP, SON WILL BRING A COPY TOMORROW PCP: JESSICA SILVA IMM DELIVERED PT RECOMMENDING [facility] IS PREFERRED SNF BLS TRANSPORT
[2023-05-15] MEDS: Enoxaparin Sodium 40 MG/0.4 ML SYRINGE SUBCUT (17:31)
[2023-05-15] MEDS: Acetaminophen 325 MG TABLET 650 MG PO (20:51)
[2023-05-15] MEDS: diphenhydrAMINE HCL 25 MG CAPSULE PO (20:51)
[2023-05-16 02:40] VITALS: BP 156/79; PULSE 61; RESP 17; TEMP 37.1; O2SAT 96
[2023-05-16] MEDS: 0.9 % Sodium Chloride 1,000 ML 100 ML IVCONT (03:09)
[2023-05-16 06:51] VITALS: BP 150/72; PULSE 59; RESP 16; TEMP 36.1; O2SAT 95
[2023-05-16] MEDS: Metoprolol Succinate ER 25 MG TAB.ER.24H PO (07:48)
[2023-05-16] MEDS: Aspirin 81 MG TAB.CHEW PO (07:48)
[2023-05-16] MEDS: Memantine HCl 5 MG TABLET PO (07:49)
[2023-05-16] MEDS: Potassium Chloride ER 20 MEQ TAB.ER.PRT PO (07:49)
[2023-05-16] MEDS: hydrALAZINE HCl 50 MG TABLET PO (07:49)
[2023-05-16] MEDS: Docusate Sodium 100 MG CAPSULE PO (07:50)
[2023-05-16 08:33] LABS: Anion Gap 10 (12-20); Blood Urea Nitrogen 10 mg/dL (9-16); Calcium 8.7 mg/dL (8.4-10.2); Carbon Dioxide 23 mmol/L (22-29); Chloride 109 mmol/L (96-108); Creatinine Clr Calc Pharmacy 64.3; Estimated Glomerular Filt Rate > 60; Glucose Random 97 mg/dL (60-115); Potassium 3.6 mmol/L (3.3-5.1); Sodium 138 mmol/L (135-145)
[2023-05-16 10:04] LABS: Alanine Aminotransferase 23 U/L (0-31); Albumin Level 3.3 g/dL (3.5-5.0); Alkaline Phosphatase 75 U/L (39-117); Aspartate Amino Transferase 50 U/L (5-31); Bilirubin Direct 0.3 mg/dL (0.0-0.5); Bilirubin Total 0.8 mg/dL (0.0-1.0); Total Protein 6.3 g/dL (6.5-8.0)
--- NOTE | 2023-05-16 10:29 | MHC.CM.PN ---
Addendum entered by Shavon Clinton 05/16/23 15:09: [facility] IS OFFERING A BED FOR TODAY CM SPOKE TO PTS SON/HCP, QUETA HE EXPRESSED CONCERN THAT MAYBE SHE SHOULD WAIT ANOTHER DAY, CM EXPLAINED SHE DID NOT HAVE ANY REASON TO STAY AND MAY BECOME FURTHER DECONDITIONED WAITING. HE ALSO ACKNOWLEDGED HE WOULD BE WORRIED ABOUT LOSING THE BED QUETA WILL BE BEDSIDE BEFORE 1600 HOURS AND IS CURRENTLY AGREEABLE TO DC TODAY HE PROVIDED CM WITH A COPY OF PTS HCP VIA EMAIL [facility] BOOKED FOR 1730 HOURS Original Note: CM MET WITH PT AND SON THIS MORNING THEY ARE AWARE [facility] HAS NO OFFERED A BED AT THIS TIME THEY ARE REQUESTING A REFERRAL TO [facility]
--- NOTE | 2023-05-16 12:29 | HO.PM.IMPN ---
Subjective Subjective Date of Service: 05/16/23 Interval History: rhabomylysis ,fall Review of Systems feelling better no new c/o. Physical Exam Vital Signs: Vital Signs: Last Vital Signs Temp 97 F 05/16/23 06:51 Pulse 59 05/16/23 06:51 Resp 16 05/16/23 06:51 BP 150/72 H 05/16/23 06:51 Pulse Ox 95 05/16/23 06:51 O2 Del Method Room Air 05/16/23 06:51 BMI result Body Mass Index 27.6 Appearance: Alert.? Oriented ,more awake. cvs: rrr, [id number] . res: clear to auscultation ,no rhonchii or wheezing abd: no rebound or guarding ,nt, bs present. ext pulses present , no cyanosis neuro: nonfocal Objective Data Active Medications Acetaminophen (Acetaminophen 325 Mg Tablet) 650 mg PO Q6H PRN PRN Reason: Pain, Mild (Pain Scale 1-3) Last Admin: 05/15/23 20:51 Dose: 650 mg Documented By: SALAZAR Aspirin (Aspirin 81 Mg Tab.Chew) 81 mg PO DAILY [facility] Last Admin: 05/16/23 07:48 Dose: 81 mg Documented By: GERMÁN Benzonatate (Benzonatate 100 Mg Capsule) 100 mg PO TID PRN PRN Reason: Cough Diphenhydramine HCl (Diphenhydramine Hcl 25 Mg Capsule) 25 mg PO BEDTIME PRN PRN Reason: Insomnia Last Admin: 05/15/23 20:51 Dose: 25 mg Documented By: SALAZAR Docusate Sodium (Docusate Sodium 100 Mg Capsule) 100 mg PO DAILY PRN PRN Reason: Constipation Last Admin: 05/16/23 07:50 Dose: 100 mg Documented By: GERMÁN Enoxaparin Sodium (Enoxaparin Sodium 40 Mg/0.4 Ml Syringe) 40 mg SUBCUT Q24H [facility] Last Admin: 05/15/23 17:31 Dose: 40 mg Documented By: MARYLIN Hydralazine HCl (Hydralazine Hcl 50 Mg Tablet) 50 mg PO BID [facility]; Protocol Last Admin: 05/16/23 07:49 Dose: 50 mg Documented By: GERMÁN Memantine (Memantine Hcl 5 Mg Tablet) 5 mg PO BID [facility] Last Admin: 05/16/23 07:49 Dose: 5 mg Documented By: GERMÁN Metoprolol Succinate (Metoprolol Succinate Er 25 Mg Tab.Er.24h) 25 mg PO DAILY [facility]; Protocol Last Admin: 05/16/23 07:48 Dose: 25 mg Documented By: GERMÁN Sodium Chloride (0.9 % Sodium Chloride Flush 3 Ml Syringe) 3 ml IVFLUSH QSHIFT [facility] Last Admin: 05/16/23 07:21 Dose: Not Given Documented By: GERMÁN Non-Admin Reason: IV Running Labs 05/15/23 05:49 05/16/23 08:01 Labs: Laboratory Results - last 24 hr 05/16/23 08:01 Hold Purple Top SEE NOTE Anion Gap 10 L Estim Creat Clear Calc 64.3 Estimated GFR > 60 Random Glucose 97 Calcium 8.7 D Total Bilirubin 0.8 Direct Bilirubin 0.3 AST 50 H ALT 23 Alkaline Phosphatase 75 Total Creatine Kinase 816 H Total Protein 6.3 L Albumin 3.3 L Assessment and Plan (1) Rhabdomyolysis: Status: Acute (2) Fall: Status: Acute Plan 82-year-old female with a PMH significant for?unspecified dementia, HTN, HLD, paroxysmal AFib no longer on anticoagulation, and recurrent UTIs who presents to the ED for evaluation of left-sided chest and leg pain after mechanical fall at home. Pt will be admitted to the hospital for treatment further evaluation of rhabdomyolysis in the setting of mechanical fall at home. Rhabdomyolysis In the setting of unwitnessed fall at home Creatinine kinase [id number] [phone] mild trop leak(possible related rhabdomylysis) ,ekg seems fine ,no chest pain off fluids ,encouraged for hydration . Musculoskeletal pain Pt complains of left-sided rib and lower leg pain X-ray of ribs -seems Unremarkable . right nad left knee xray-Mild degenerative changes left knee joint. head ct -neg Analgesics for pain management. PT consult-str Leukocytosis WBCs 13.3 times presentation-resolved. Likely reactionary, secondary to fall and rhabdomyolysis No source of bacterial infection: UA negative, CXR negative, patient afebrile Elevated BNP No hx of CHF, appears euvolemic, CXR clear Treat as above. Dementia unspecified CT of head moderate global cerebral volume loss with small appearance of bilateral hippocampi that can be correlated clinically for Alzheimer's disease, also found mild cerebral atrophy with mild to moderate chronic microangiopathy changes Patient appears to be at baseline according to family Continue memantine. Paroxysmal AFib off Xarelto 6 months ago due to fall risk Continue metoprolol HTN Continue hydralazine, lisinopril DVT Prophylaxis: Lovenox ongoing hospitlisation need:awiting placement for rehab. Quality Stroke Does the patient have a stroke diagnosis?: No VTE Prior VTE?: No VTE Risk Level:: Medical - moderate - high VTE Device Contraindication: Treatment Not Indicated VTE Drug Contraindication: N/A - Med Ordered
--- NOTE | 2023-05-16 14:47 | P.DS_ITS ---
DS: Providers Provider Date of Service: 05/16/23 Date of admission: 05/14/23 17:09 Date of discharge: 05/16/23 Primary care physician: Darinel Turpin DO Attending physician on discharge: Ken Dorado Discharging clinician: Ken Dorado DS: Diagnosis Discharge Diagnosis (1) Rhabdomyolysis: Status: Acute (2) Fall: Status: Acute DS: Summary Hospital Course Hospital Course: 82-year-old female with a PMH significant for?unspecified dementia, HTN, HLD, paroxysmal AFib no longer on anticoagulation, and recurrent UTIs who presents to the ED for evaluation of left-sided chest and leg pain after mechanical fall at home. Patient with unspecified dementia at baseline, lives at [facility] with visiting home health aide caregiver 3 times a week for 1 1/2 hours. [facility] take a showe and found the pt on the floor of the bathroom. Pt had apparently taken a shower on her own and fallen when attempting to get out. Pt was found awake and alert, apparently at baseline mentally. She denied LOC or head strike. Reports she slipped getting out of the shower. Was on the floor for an unknonw amount of time. Pt also reports left-sided rib and leg pain, particularly from the knee to ankle. Denies chest pain/pressure, palpitations. Shortness of breath. Denies fever, chills, nausea, vomiting, abdominal pain. In the ED pt was Labs were significant for leukocytosis of 13.3, sodium 134, bilirubin 1.3, AST 97, CPK 3977 with repeat 3291 after fluids, initial troponin 54.6, BNP elevated 600. UA positive for urine protein of 30, moderate urine blood, negative for nitrites and leukocyte esterase no bacteria seen. CXR showed slight bibasilar atelectasis, left greater than right. Rib x-ray pending. CT?showed no evidence of acute intracranial injury, but did show moderate global cerebral volume loss, mild cerebral atrophy, and mild to moderate chronic microangiopathy. EKG demonstrated bradycardia 57 with PACs but without significant ST elevations or depressions. Pt was treated with 2 L IVF. Pt will be admitted to the hospital for treatment further evaluation of rhabdomyolysis in the setting of mechanical fall at home. Hospital course: Patient came with rhabdomyolysis secondary to fall. found to have mild elevation of troponin and mild AST elevation: Patient was started on IV fluid seems to be improved significantly: CPA improved from 3900 to now 816. Patient was strongly encouraged for p.o. hydration and intake. Also patient had multiple x-rays(please see imaging section): Negative for fracture, CT head also negative (please see imaging section also.) Elevated AST: Possibly related in setting of rhabdomyolysis, monitor out patiently. mild elevation of troponin-Possibly related in setting of rhabdomyolysis, dehydration: Consider further cardiac workup out patiently as per PCP. Currently patient is asymptomatic. EKG seems fine. plan: Monitor renal function electrolytes, LFTs out patiently. Further cardiac workup for elevated troponin outpatient if as per PCP. Above management discussed with the patient and her family in detail length. As sessment and plan coordination time spent 50 minute. Time Attestation Discharge coordination time: Greater than 30 minutes Quality: Safe Use of Opioids Does Pt have an Active Cancer Diagnosis on the Problem List?: No Quality: Stroke Does the patient have a stroke diagnosis?: No Physical Exam Vital Signs: Vital Signs: Last Vital Signs Temp 97 F 05/16/23 06:51 Pulse 59 05/16/23 06:51 Resp 16 05/16/23 06:51 BP 150/72 H 05/16/23 06:51 Pulse Ox 95 05/16/23 06:51 O2 Del Method Room Air 05/16/23 06:51 BMI result Body Mass Index 27.6 Appearance: Alert.? Oriented ,more awake. cvs: rrr, [id number] . res: clear to auscultation ,no rhonchii or wheezing abd: no rebound or guarding ,nt, bs present. ext pulses present , no cyanosis skin changes -please see h&p. neuro: nonfocal. DS: Data Data Completed and Pending Labs on day of discharge: Laboratory Results - last 24 hr 05/16/23 08:01 Hold Purple Top SEE NOTE Sodium 138 Potassium 3.6 Chloride 109 H Carbon Dioxide 23 Anion Gap 10 L BUN 10 Creatinine 0.66 Estim Creat Clear Calc 64.3 Estimated GFR > 60 Random Glucose 97 Calcium 8.7 D Total Bilirubin 0.8 Direct Bilirubin 0.3 AST 50 H ALT 23 Alkaline Phosphatase 75 Total Creatine Kinase 816 H Total Protein 6.3 L Albumin 3.3 L Imaging Chest x-ray: Radiologist's impression: ITS Impressions Chest X-Ray 05/14/23 11:25 IMPRESSION: Slight bibasilar atelectasis, left greater than right. Head CT 05/14/23 14:58 IMPRESSION: 1. No CT evidence of acute intracranial injury. 2. Moderate global cerebral volume loss with small appearance of the bilateral hippocampi that can be correlated clinically for Alzheimer's disease. Mild cerebellar atrophy. Mild to moderate chronic microangiopathy changes. 3. 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 Ribs X-Ray 05/14/23 15:08 IMPRESSION: Unremarkable chest examination. Unremarkable right rib exam. Knee X-Ray 05/14/23 18:04 IMPRESSION: Mild degenerative changes left knee joint. There is no visible acute fracture or dislocation left lower leg or left knee. Diffuse osteopenia. Tibia/Fibula X-Ray 05/14/23 18:04 IMPRESSION: Mild degenerative changes left knee joint. There is no visible acute fracture or dislocation left lower leg or left knee. Diffuse osteopenia. Knee X-Ray 05/15/23 10:20 IMPRESSION: * No acute osseous injury at the right knee. * There is chondrocalcinosis and mild osteoarthrosis of the right knee. Discharge Plan Discharge Anticipated Discharge Date/Time: 05/16/23 14:43 Patient Disposition: [facility] Discharge Diagnosis: fall , rhabdomyolysis, elevated troponin,mild elevation LFt Referrals: Darinel Turpin DO [Primary Care Provider] - 1 Week Discharge Medications: Continued aspirin 81 mg Tablet,Chewable 81 mg PO DAILY lisinopril 20 mg tablet 20 mg PO BID memantine 5 mg tablet 5 mg PO BID metoprolol succinate 25 mg tablet extended release 24 hr 25 mg PO DAILY hydralazine 50 mg tablet 50 mg PO BID Discharge Orders: Discharge Order (Routine); Ordered 05/16/23 Ordered By: Ken Dorado Diet: Advance to usual diet Activity on Discharge: As tolerated Stand Alone Forms: Patient Portal Discharge page Care Plan Goals: Patient came with rhabdomyolysis secondary to fall-seems to improve with hy dration, encouraged for p.o. intake, seen by PT recommended rehab. Mild elevation of cardiac enzymes in setting of rhabdomyolysis-further workup out patiently with PCP consider Cardiology evaluation. Health Concerns: As above. Plan of Treatment: As above. Assessment: As above.
[2023-05-16 15:42] VITALS: BP 162/64; PULSE 63; RESP 18; TEMP 36.4; O2SAT 96
[2023-05-16] MEDS: 0.9 % Sodium Chloride Flush 3 ML SYRINGE IVFLUSH (16:04)
--- NOTE | 2023-05-16 19:06 | PC.NURSE ---
Patient son visiting,upset about ambulance being late,equal opportunity director called ambulance earlier,there was 1 hour dealy,city secretary called again and ambulance should be here within 1/2 hr,son notified ,waiting in room with patient.
--- NOTE | 2023-05-16 19:10 | PC.NURSE ---
Patient son questioning why his mother still have an IV ,explained that we do not remove IV untill right before discharge just in case there would be a need to use it ,son states understanding
[2023-05-16] MEDS: Enoxaparin Sodium 40 MG/0.4 ML SYRINGE SUBCUT (19:16)
--- NOTE | 2023-05-16 19:18 | PC.NURSE ---
Patient son took patient name band off patient arm,stated [employer] dispose the name band,new name band obtained and placed on patient arm
--- NOTE | 2023-05-16 19:22 | PC.NURSE ---
Patient sitting in the chair ,chair alarm on,son at bedside
[2023-05-16 19:41] VITALS: BP 148/62; PULSE 94; RESP 16; TEMP 37.1; O2SAT 94
--- NOTE | 2023-05-17 12:59 | P.F2F_ITS ---
Service Date Service Date: 05/17/23 Encounter Date of encounter: 05/17/23 Encounter: fall ,rhabdomylsis ,elevated troponins Reasons for Services Signs and symptoms assessed: any new symptoms Reason for correction: medication management, medication treatment and teach disease management Reason for physical therapy: home safety and mobility, therapeutic exercises, restore joint function, gait/transfer training, assess need for DME, ADL training, energy conservation and other MD Overseeing Care: Darinel Turpin Homebound: Leaving the home is medically contraindicated at this time without the asist of a device and/or another person due th the listed conditions above and below. Reason homebound: weakness related to hospital stay Homebound supporting statement: Patient is generalized weak post hospital stay has multiple comorbidities including recent fall, rhabdomyolysis: Need help with blood draw, PT, appointments. Certification: Based on the above findings, I certify that this patient is confined to the home and needs intermittent correction care, physical therapy and/or speech therapy, or continues to need occupational therapy. The patient is under my care, and I have initiated the establishment of the plan of care. The patient will be followed by a physician who will periodically review the plan of care. Time Spent With Patient Time: Total time managing care of this patient today ____ minutes.
--- NOTE | 2023-05-17 15:27 | MHC.CM.PN ---
NEW RECEIVED A CALL FROM PTS SON, QUETA, WHO STATED THE PT WAS NOT TRANSFERRED TO [facility] UNTIL NEARLY 2100 HOURS LAST NIGHT HE SAID BY THE TIME THEY WERE DOING THE INTAKE, IT WAS AFTER 2200 HOURS AND THE PT WAS CONFUSED AND CRYING HE SAYS THEY TOLD HIM THE FAMILY COULD ONLY STAY 15 MINUTES BECAUSE VISITING HOURS ENDED AT 2100 HOURS AND THE PT DID NOT WANT TO BE LEFT THERE. HE REPORTS THE ROOM WAS ALSO VERY COLD. QUETA SAYS HE DID NOT FEEL HE COULD LEAVE HIS MOTHER THERE, SO HE TOOK HER TO HIS HOME HE SAYS HE DOES NOT KNOW WHAT TO DO NOW HE ASKS IF THERE IS ANY WAY PT COULD GO TO [facility], HOWEVER SHE DID NOT HAVE A 3 MIDNIGHT STAY HE ASKS IF THERE IS A WAY TO APPEAL NEW AGREED TO DISCUSS THIS WITH LEADERS AND OFFERED A VNA FOR NOW HE IS AWARE PT AND SN HAVE BEEN ARRANGED WITH [facility] AND THEY WILL BEGIN CARE TOMORROW QUETA INDICATED THE PT WAS AMBULATING IN HIS HOME WITH A WALKER, AND WOULD STAY WITH HIM UNTIL THEY DECIDED WHAT TO DO NEW SPOKE TO [facility] WHO SAID MAYBE THE PT COULD RETURN TO [facility] SINCE IT HAD BEEN LESS THAN 24 HOURS MESSAGE SENT TO [facility] TO DETERMINE IF THEY WOULD BE WILLING TO TAKE HER QUETA CALLED BACK IN THE MEANTIME AND INDICATED THEY WOULD NOT WANT PT TO RETURN TO [facility] NEW ALSO SPOKE TO [facility] LIAISON WHO INDICATED SHE DID NOT BELIEVE THE PT WOULD QUALIFY AT THIS TIME IF SHE IS AMBULATING AT HOME WITH A WALKER NOW SHE BARELY QUALIFIED WHEN THEY ACCEPTED HER.
== END 2023-05-16 19:58 | disposition skilled nursing facility (03) | DRG 566 ==
LOC: HO.ED 15:14 → HO.EDOVER 17:32 → HO.S3 17:48
PROVIDERS: Nurse Practitioner Family; Admitting Provider Student in an Organized Health Care Education/Training Program; Emergency Provider Emergency Medicine; PCP Family Medicine; Visit Provider Internal Medicine
DX: T79.6XXA Traumatic ischemia of muscle, initial encounter (principal); I48.0 Paroxysmal atrial fibrillation; I10 Essential (primary) hypertension; W19.XXXA Unspecified fall, initial encounter; G30.9 Alzheimer's disease, unspecified; F02.80 Dementia in other diseases classified elsewhere, unspecified severity, without behavioral disturbance, psychotic disturbance, mood disturbance, and anxiety; Z66 Do not resuscitate; Z20.822 Contact with and (suspected) exposure to COVID-19; Z87.891 Personal history of nicotine dependence; Z79.82 Long term (current) use of aspirin; Z79.899 Other long term (current) drug therapy
CPT/HCPCS: 0241U; 36415; 70450; 71045; 71110; 73560; 73562; 73590; 80048; 80053; 80076; 81001; 82550; 83880; 84484; 85025; 85027; 93005; 97162; 99285; J1650

== ENCOUNTER → 2023-05-14 11:12 | Outpatient (BNV) | payer MEDICARE, OTHER, SELFPAY | PROVIDERS: Emergency Provider Emergency Medicine; PCP Family Medicine; Visit Provider Internal Medicine Cardiovascular Disease | DX: I49.1 Atrial premature depolarization (principal) | CPT/HCPCS: 93010 ==

== ENCOUNTER → 2023-05-14 17:09 | Outpatient (BNV) | payer MEDICARE, OTHER, SELFPAY | PROVIDERS: Admitting Provider Student in an Organized Health Care Education/Training Program; Emergency Provider Emergency Medicine; PCP Family Medicine; Visit Provider Student in an Organized Health Care Education/Training Program | DX: M62.82 Rhabdomyolysis (principal); W19.XXXA Unspecified fall, initial encounter | CPT/HCPCS: 99223; 99232; 99239; G0180 ==

== ENCOUNTER 2023-12-15 10:56 | Inpatient (IN) | payer MEDICARE, OTHER, SELFPAY ==
[2023-12-15] VITALS (8 sets, daily range): BP systolic 102–156; BP diastolic 50–68; PULSE 47–71; RESP 15–18; TEMP 37.1–37.4; O2SAT 93–96; BMI 24.6
--- NOTE | ~2023-12-15 | XR_ITS ---
EXAMINATION: XR CHEST CLINICAL INFORMATION: Generalized weakness, rule out pneumonia Covid COMPARISON: 05/14/2023 TECHNIQUE: Frontal view of the chest was obtained. FINDINGS: Heart size upper limits of normal, aortic and mitral annular calcifications seen. No vascular congestion or consolidations. Mild increased markings left base with left costophrenic angle blunting. Bones are demineralized. Rounded density identified in the right axilla. XR/XR chest 1V IMPRESSION: Left base atelectasis. Tiny left effusion not excluded.
--- NOTE | 2023-12-15 11:00 | ECG_ITS ---
Test Reason : WEAKNESS Blood Pressure : / mmHG Vent. Rate : 047 BPM Atrial Rate : 047 BPM P-R Int : 168 ms QRS Dur : 082 ms QT Int : 472 ms P-R-T Axes : 082 007 030 degrees QTc Int : 417 ms Sinus bradycardia Otherwise normal ECG When compared with ECG of 14-MAY-2023 11:55, Premature atrial complexes are no longer Present Referred By: Gracie Momin Electronically Signed By:KEV RIVAS
--- NOTE | 2023-12-15 11:27 | MHC.EDTECH ---
purewick was placed on pt with verbal orders from RN d/t incontinence
--- NOTE | 2023-12-15 11:28 | PC.NURSE ---
Patient arrived via ems from assisted living facility with reports of weakness and lethargy. Patient incontinent of urine , during incontinence care found to have two saturated pulls up and two saturated pads. Daughter reports that patient does this herself because the facility can not help her to go to the bathroom. UA obtained via straight cath. Patient denies pain or discomfort
--- OUTSIDE RECORDS SUMMARY | 2023-12-15 11:31 | XMS_ITS | Continuity of Care Document ---
Author Organization [facility] Bert Anderson Jose lt Address [address] [place] [address]- Care Team Providers Care Local Announcer Name Role Phone Darinel Turpin DO Primary Care Physician Encounter [facility] [place] Date(s): 03/11/23 - 03/18/23 [facility] Bert Anderson Adult [address] [place] [address]- Encounter Diagnosis Physical exam(Discharge Diagnosis) - 03/10/23 Essential hypertension(Discharge Diagnosis) - 03/10/23 Moderate dementia(Discharge Diagnosis) - 03/10/23 Atrial fibrillation and flutter(Discharge Diagnosis) - 03/10/23 Osteoarthritis of knees, bilateral(Discharge Diagnosis) - 03/10/23 Attending Physician: Darinel Turpin DO Allergies, Adverse Reactions, Alerts No Known Allergies Immunizations Given and Recorded Vaccine Date Status Refusal Reason pneumococcal 20-valent conjugate vaccine 1 03/11/23 Given [id number] 12y+ bivalent booster vax 02/05/22 Recorded SARS-CoV-2 (COVID-19) mRNA BNT-162b2 vac 02/18/21 Recorded SARS-CoV-2 (COVID-19) mRNA BNT-162b2 vac 07/02/20 Recorded SARS-CoV-2 (COVID-19) mRNA BNT-162b2 vac 06/10/20 Recorded influenza virus vaccine, inactivated 01/17/21 Isaak rded influenza virus vaccine, inactivated 01/31/20 Isaak rded influenza virus vaccine, inactivated 01/16/18 Isaak rded influenza virus vaccine, inactivated 02/11/17 Isaak rded influenza virus vaccine, inactivated 02/21/16 Isaak rded influenza virus vaccine, inactivated 02/22/15 Isaak rded influenza virus vaccine, inactivated 03/07/14 Isaak rded zoster vaccine, inactivated 12/27/19 Recorded zoster vaccine, inactivated 02/08/19 Recorded pneumococcal 13-valent vaccine 02/22/15 Recorded tetanus/diphtheria/pertussis, acel(Tdap) 02/22/15 Recorded 1Result Comment: [facility]# [id number] Medications hydrALAZINE 50 mg oral tablet 1 tablet = 50 mg, By Mouth, 2 times a day, # 180 tablet, 3 Refills, Maintenance, 03/11/23 13:25:00 EST, Tablet, [facility] #[id number], Partial fill upon patient request if the prescription is for a schedule II opioid drug., 165, cm, 03/11/23 12:... Start Date: 03/11/23 Status: Ordered lisinopril 40 mg oral tablet 1 tablet = 40 mg, By Mouth, Daily, # 90 tablet, 3 Refills, Maintenance, 03/11/23 13:26:00 EST, Tablet, [facility] #[id number], Partial fill upon patient request if the prescription is for a schedule II opioid drug., 165, cm, 03/11/23 12:53:00 EST... Start Date: 03/11/23 Status: Ordered memantine 5 mg oral tablet 1 tablet = 5 mg, By Mouth, 2 times a day, TAKE 1 TABLET BY MOUTH TWICE DAILY FOR 90 DAYS, # 180 tablet, 3 Refills, Maintenance, 03/11/23 13:24:00 EST, Tablet, [facility] #[id number], Partial fill upon patient request if the prescription is for a... Start Date: 03/11/23 Status: Ordered metoprolol 25 mg oral tablet, extended release 25 mg, 1, tablet, By Mouth, Daily, # 90 tablet, Refills 3, Tot. Refills 3, Maintenance, 03/11/23 13:27:00 EST, Route to Pharmacy Electronically, [facility] #[id number], Partial fill upon patientrequest if the prescription is for a schedule II op... Start Date: 03/11/23 Status: Ordered Problem List Condition Confirmation Course Effective Dates Status H ealth Status Informant Atrial fibrillation and flutter Confirmed Active Osteoarthritis of knees, bilateral Confirmed Active Moderate dementia Confirmed Active Essential hypertension Confirmed Active Physical exam Confirmed Active Diagnosis Diagnosis Type Effective Dates Health Status Clinical Service Informant Physical exam Discharge Diagnosis 03/10/23 Essential hypertension Discharge Diagnosis 03/10/23 Moderate dementia Discharge Diagnosis 03/10/23 Atrial fibrillation and flutter Discharge Diagnosis 03/10/23 Osteoarthritis of knees, bilateral Discharge Diagnosis 03/10/23 Procedures Procedure Date Related Diagnosis Body Site Status [place] BSO - Total abdominal hy sterectomy and bilateral salpingo-oophorectomy Completed THR - Total hip replacement Completed Vital Signs Most recent to oldest [Reference Range]: 1 Height 165 cm (03/11/23 12:53 PM) Weight 74.9 kg (03/11/23 12:53 PM) Oxygen Saturation [94-100 %] 99 % (03/11/23 12:53 PM) Pulse Rate [55-90 bpm] 65 bpm (03/11/23 12:53 PM) Body Mass Index [18.5-24.99 kg/m2] 27.51 kg/m2 *H* (03/11/23 12:53 PM) Blood Pressure [90-138/55-84 mm Hg] 134/ 59mm Hg (03/11/23 12:53 PM) Blood pressure sites Arm, right (03/11/23 12:53 PM) Social History Social History Type Response Smoking Status Former smoker, quit more than 30 days ago; Other: quit 1984; entered on: 03/11/23 Sex EKG study * Event Display: ECG 12-Lead Authored Date: Please click on pdf link to open report * Event Display: ECG 12-Lead Authored Date: Ventricular Rate: 56 BPM Atrial Rate: 56 BPM P-R Interval: 160 ms QRS Duration: 88 ms Q-T Interval: 444 ms QTC Calculation(Bazett): 428 ms P [place]: 50 degrees R [place]: 17 degrees T [place]: 33 degrees Sinus bradycardia Septal infarct , age undetermined Abnormal ECG When compared with ECG of 05-MAY-2016 15:57, Vent. rate has decreased BY 58 BPM Septal infarct is now Present Nonspecific T wave abnormality, improved in Anterolateral leads Confirmed by TOM SANDERS MD ([id number]) on 03/11/2023 5:55:40 PM [place]: TOM SANDERS MD Note * Talita Salmeron: PERFORM, SIGN, VERIFY Event Display: Patient Education/Instruction Authored Date: [facility] *BMP So [place] Adlt Clinical Summary Name HARRY MONTES Age 82 Years 1940 PCP Darinel Turpin DO PCP Visit Date 03/11/2023 12:44:00 Patient Instructions Health goals for this year continue exercise and diet Obtain lab BP at goal continue current plan check BP at home and bring to next visit Recommend getting the updated COVID-vaccine and RSV vaccine at your local pharmacy Additional Instructions: Scheduled Appointments?? Future Appointments ?No Future Appointments Scheduled Follow-Up Instructions ?? With: Address: When: f/u 6 months Diagnosis Unspecified atrial fibrillation; Encounter for general adult medical examination without abnormal findings; Bilateral primary osteoarthritis of knee; Unspecified dementia, moderate, without behavioral disturbance, psychotic disturbance, mood disturbance, and anxiety; Essential (primary) hypertension Medications: Please continue your medications until treatment is completed or stopped by your provider. Discuss any questions related to medications with your provider. Medications to Continue Taking That Have Changed [facility] #[id number] [phone], [phone] - hydrALAZINE (hydrALAZINE 50 mg oral tablet) 1 tab(s) Oral twice a day. Refills: 3. Next Dose: - Lisinopril (lisinopril 40 mg oral tablet) 1 tab(s) Oral Daily. Refills: 3. Next Dose: - Memantine (memantine 5 mg oral tablet) 1 tab(s) Oral twice a day. TAKE 1 TABLET BY MOUTH TWICE DAILY FOR 90 DAYS. Refills: 3. Next Dose: Medications to Continue with No Changes [facility] #[id number], [address], [place] [phone], [phone] Metoprolol (metoprolol 25 mg oral tablet, extended release) 1 tab(s) Oral Daily. Refills: 3. Next Dose: No Longer Take the Following Medications Acetaminophen (Tylenol Caplet) 975 Milligram Oral every 8 hours. not to exceed 3000 mg/day. Docusate (docusate sodium 100 mg oral capsule) 1 capsule Oral twice a day. Refills: 0. Ferrous Gluconate (ferrous gluconate 324 mg oral tablet) 1 tab(s) Oral Daily. Refills: 0. Gabapentin (gabapentin 100 mg oral capsule) Oral 3 times a day. Omeprazole (omeprazole 40 mg oral enteric coated capsule) 1 capsule Oral Daily. Refills: 0. Polyethylene Glycol 3350 (MiraLax oral powder for reconstitution) 17 gram Oral Daily. Refills: 0. Warfarin (Coumadin 1 mg oral tablet) Take 1-10 tablets daily by mouth as directed by MD. Refills: 0. Allergy Info:?? NKA Medications Given This Visit Future Orders ?Lipid Panel Non Fasting? Order Date:03/11/23?- Complete on or after?03/11/23 ?TSH with T4 Reflex (Adults Only)? Order Date:03/11/23?- Complete on or after?03/11/23 ?Comprehensive Metabolic Panel? Order Date:03/11/23?- Complete on or after?03/11/23 ?CBC w/ Differential? Order Date:03/11/23?- Complete on or after?03/11/23 Vital Signs Height 165 cm Weight 74.9 kg BMI 27.51 kg/m2 Blood Pressure 134 mm Hg/59 mm Hg Temperature Pulse Rate 65 bpm Respiratory Rate 02 Sat Mode of Delivery 99 %/ You can now view a summary of your hospital visit from the comfort of your home through a free online portal called [facility]. [facility] is a website that allows you to securely view your medical information including discharge summary, medications and follow-up visits. ??You can alsosend a secure electronic message to your doctor???s office to request appointments, renew medications or just ask a question. You can enroll at [email or web address] or register during your next office visit. Disclaimer:?? The information provided is of a general nature and is intended to be used in conjunction with the recommendations and advice of your health care practitioner. ??Every effort has been made to ensure that the information provided is accurate and complete at the time it is provided to you however, as your needs change, or, as new ??information becomes available, different or additional instructions may be required. If you have questions, please consult with your primary care provider or pharmacist, as appropriate. ??This information is not intended to serve as substitution for assessment and evaluation by a qualified health care provider. If you do not have a primary care provider, you may find a [facility] provider by calling [facility] [employer] Link at [phone]. [facility], in keeping with [facility] guidance, no longer requires face masks for staff, patientsor visitors in most situations. Similar to time spent indoors at other locations, there is the chance that you were exposed to respiratory viruses during your time with us (such as flu or COVID-19).? If you develop symptoms concerning for a viral respiratory infection, please seek testing (and treatment if indicated) from your medical provider or home test kit. For information about the plan of care including goals and instructions for your diagnosis, please see the patient education orders section of this document. Patient Education Materials?? The content of this educational material or handout may have been modified, supplemented, or adapted from its original content and format to support your individualized medical care. Prevention Guidelines, Women Ages 65 and Older Screening tests and vaccines are an important part of managing your health. Health counseling is essential, too. Below are guidelines for these, for women ages 65 and older. Talk with your healthcareprovider to make sure you???re up to date on what you need. Screening Who needs it How often Type 2 diabetes or prediabetes All adults beginning at age 45 and adults without symptoms at any age who are overweight or obese and have 1 or more additional risk factors for diabetes At least every 3 years Alcohol misuse All women in this age group At routine exams Blood pressure All women in this age group Every 2 years if your blood pressure is less than 120/80 mm Hg; yearly if your systolic blood pressure is 120 to 139 mm Hg, or your diastolic blood pressure reading is 80 to 89 mm Hg Breast cancer All women in this age group Yearly mammogram and clinical breast exam1 Cervical cancer Only women who had abnormal screening results before age 65 Talk with your healthcare provider Chlamydia Women at increased risk for infection At routine exams Colorectal cancer All women in this age group1 Flexible sigmoidoscopy every 5 years, or colonoscopy every 10 years, or double- contrast barium enema every 5 years; yearly fecal occult blood test or fecal immunochemical test; or a stool DNA test asoften as your healthcare provider advises; talk with your healthcare provider about which tests arebest for you Depression All women in this age group At routine exams Gonorrhea Sexually active women at increased risk for infection At routine exams Hepatitis C Anyone at increased risk; 1 time for those born between 1945 and 1964 At routine exams High cholesterol or triglycerides All women in this age group who are at risk for coronary artery disease At least every 5 years HIV Women at increased risk for infection ??? talk with your healthcare provider At routine exams Lung cancer Adults age 55 to 80 who have smoked Yearly screening in smokers with 30 pack-year history of smoking or who quit within 15 years Obesity All women in this age group At routine exams Osteoporosis All women in this age group Bone density test at age 65, then follow-up as advised by your healthcare provider Syphilis Women at increased risk for infection ??? talk with your healthcare provider At routine exams Thyroid-Stimulating Hormone (TSH) All women in this age group Every 5 years Tuberculosis Women at increased risk for infection ??? talk with your healthcare provider Ask your healthcare provider Vision All women in this age group Every 1 to 2 years; if you have a chronic health condition, ask your healthcare provider if you need exams more often Vaccine Who needs it How often Chickenpox (varicella) All women in this age group who have no record of this infection or vaccine 2 doses; second dose should be given at least 4 weeks after the first dose Hepatitis A Women at increased risk for infection ??? talk with your healthcare provider 2 doses given 6 months apart Hepatitis B Women at increased risk for infection ??? talk with your healthcare provider 3 doses over 6 months; second dose should be given 1 month after the first dose; the third dose should be given at least 2 months after the second dose and at least 4 months after the first dose Haemophilus influenza??Type B (HIB) Women at increased risk for infection ??? talk with your healthcare provider 1 to 3 doses Influenza (flu) All women in this age group Once a year Pneumococcal??conjugate vaccine (PCV13)??and pneumococcal polysaccharide??vaccine (PPSV23) All women in this age group 1 dose of each vaccine Tetanus/diphtheria/pertussis (Td/Tdap) booster All women in this age group Td every 10 years, or a one-time dose of Tdap instead of a Td booster after age 18, then Td every 10 years Zoster All women in this age group 1 dose Counseling Who needs it How often Diet and exercise Women who are overweight or obese When diagnosed, and then at routine exams Fall prevention (exercise and vitamin D supplements) All women in this age group At routine exams Sexually transmitted infection prevention Women at increased risk for infection ??? talk with your healthcare provider At routine exams Use of daily aspirin Women ages 55 and up in this age group who are at risk for cardiovascular health problems such as stroke When your risk is known Use of tobacco and the health effects it can cause All women in this age group Every exam 1American [employer] Society ?? 8542-5839 [employer]. [address] [place] [address]. All rights reserved. This information is not intended as a substitute for professional medical care. Always follow your healthcare professional's instructions. Patient Care team information Care Team Personnel Name: Marleni Lizarraga RN Position: [facility] RN Member Role: Primary Care Nurse Name: Trupti Maya RN Position: [facility] RN Member Role: Primary Care Nurse Name: Delaney Carmona RN Position: [facility] RN Member Role: Primary Care Nurse Name: Olive Lim RN Position: [facility] RN Member Role: Primary Care Nurse Name: Le Sheriff NP Position: [facility] PCO Associate Professional Member Role: Primary Care Nurse Address: Address: [address] [place] [address] Name: Belkis Scanlon RN Position: [facility] RN Member Role: Primary Care Nurse Name: Iman Louis RN Position: [facility] RN Supv Member Role: Primary Care Nurse Name: Darinel Turpin DO Position: [facility] Physician - Primary Care Member Role: PCP Address: Address: [address] [place] [address] [place] [address]- Name: Elijah Turpin RN Position: [facility] Hospital Renewable Energy Engineer Member Role: Primary Care Nurse Care Team Related Persons Name: CHERYL MONTES Address: home [address] [place] [address] Name: QUETA MONTES Address: [place] [address]
--- OUTSIDE RECORDS SUMMARY | 2023-12-15 11:31 | XMS_ITS | Continuity of Care Document ---
Author Organization [facility] Address [address] [facility], [address] Floor, [address] [place] [address]- Care Team Providers Care Food Production Manager Name Role Phone Alex Ortiz MD Primary Care Physician Encounter [facility] [place] Date(s): 06/11/22 - 07/11/22 [facility] [address] [facility], [address] Floor, [address] [place] [id number] Allergies, Adverse Reactions, Alerts No Known Allergies Medications Coumadin 1 mg oral tablet See Instructions, Take 1-10 tablets daily by mouth as directed by , # 150 tablet, 0 Refills, Maintenance, 05/06/16 11:00:59, Tablet Start Date: 05/06/16 Status: Ordered docusate sodium 100 mg oral capsule 100 mg, 1, capsule, By Mouth, 2 times a day, # 60 capsule, Refills 0, Tot. Refills 0, Maintenance, 05/06/16 11:01:02, Print Requisition Start Date: 05/06/16 Status: Ordered ferrous gluconate 324 mg oral tablet 1 tablet = 324 mg, By Mouth, Daily, # 30 tablet, 0 Refills, Maintenance, 05/06/16 11:01:28, Tablet Start Date: 05/06/16 Status: Ordered gabapentin 100 mg oral capsule By Mouth, 3 times a day, 0 Refills, Maintenance, Capsule Start Date: 08/06/12 Status: Ordered hydrALAZINE 10 mg oral tablet 10 mg, 1, tablet, By Mouth, 2 times a day, # 60 tablet, Refills 0, Maintenance, 05/01/16 18:27:37 Start Date: 05/01/16 Status: Ordered lisinopril 10 mg oral tablet 1 tablet = 10 mg, By Mouth, Daily, # 30 tablet, 0 Refills, Maintenance, Tablet Start Date: 04/20/12 Status: Ordered metoprolol 25 mg oral tablet, extended release 25 mg, 1, tablet, By Mouth, Daily, # 30 tablet, Refills 0, Maintenance, 05/01/16 18:29:42 Start Date: 05/01/16 Status: Ordered MiraLax oral powder for reconstitution = 17 Gm, By Mouth, Daily, # 1 bottle, 0 Refills, Maintenance, 05/06/16 11:01:23 Start Date: 05/06/16 Status: Ordered omeprazole 40 mg oral enteric coated capsule 1 capsule = 40 mg, By Mouth, Daily, # 30 capsule, 0 Refills, Maintenance, 05/06/16 11:01:06, EC Capsule Start Date: 05/06/16 Status: Ordered Tylenol Caplet = 975 mg, By Mouth, Every 8 hours, not to exceed 3000 mg/day, 0 Refills, Maintenance, 05/08/16 16:57:37 Start Date: 05/08/16 Status: Ordered Problem List Condition Confirmation Course Effective Dates Status Health St atus Informant Hypertension Confirmed Active Patient Care team information Care Team Personnel Name: Marleni Lizarraga RN Position: [facility] RN Member Role: Primary Care Nurse Name: Alex Ortiz MD Position: [facility] Physician (General Medicine) Member Role: PCP Address: Address: [address] [place] [id number]- Name: Trupti Maya RN Position: [facility] SN RN Member Role: Primary Care Nurse Name: Delaney Carmona RN Position: [facility] RN Member Role: Primary Care Nurse Name: Olive Lim RN Position: [facility] RN Member Role: Primary Care Nurse Name: Le Sheriff NP Position: [facility] PCO Associate Professional Member Role: Primary Care Nurse Address: Address: [address] [facility] [place] [address]- Name: Belkis Scanlon RN Position: [facility] RN Member Role: Primary Care Nurse Name: Iman Louis RN Position: [facility] RN Supv Member Role: Primary Care Nurse Name: Elijah Turpin RN Position: [facility] Hospital Residential Property Manager Member Role: Primary Care Nurse Care Team Related Persons Name: SIMONMONTSE CARRI Address: home [address] [place] [address] Name: SIMON QUETA Address: [place] [address]
--- OUTSIDE RECORDS SUMMARY | 2023-12-15 11:31 | XMS_ITS | Continuity of Care Document ---
Author Organization [facility] Address [address] [place] [address]- Care Team Providers Care Fence Builder Name Role Phone Alex Ortiz MD Primary Care Physician [phone] Encounter 11/20/23 - 11/27/23 [facility] [address], [address] [place] [address]- Attending Physician: Alex Ortiz MD Admitting Physician: Alex Ortiz MD Referring Physician: Alex Ortiz MD Allergies, Adverse Reactions, Alerts No Known Allergies Immunizations Given and Recorded Vaccine Date Status Refusal Reason pneumococcal 20-valent conjugate vaccine 1 03/11/23 Given influenza virus vaccine, inactivated 03/10/23 Isaak rded influenza virus vaccine, inactivated 01/17/21 Isaak rded influenza virus vaccine, inactivated 01/31/20 Isaak rded influenza virus vaccine, inactivated 01/16/18 Isaak rded influenza virus vaccine, inactivated 02/11/17 Isaak rded influenza virus vaccine, inactivated 02/21/16 Isaak rded influenza virus vaccine, inactivated 02/22/15 Isaak rded influenza virus vaccine, inactivated 03/07/14 Isaak rded [id number] 12y+ bivalent booster vax 02/05/22 Recorded SARS-CoV-2 (COVID-19) mRNA BNT-162b2 vac 02/18/21 Recorded SARS-CoV-2 (COVID-19) mRNA BNT-162b2 vac 07/02/20 Recorded SARS-CoV-2 (COVID-19) mRNA BNT-162b2 vac 06/10/20 Recorded zoster vaccine, inactivated 04/29/19 Recorded zoster vaccine, inactivated 02/08/19 Recorded pneumococcal 13-valent vaccine 02/22/15 Recorded tetanus/diphtheria/pertussis, acel(Tdap) 02/22/15 Recorded 1Result Comment: [facility]# [id number] Medications hydrALAZINE 50 mg oral tablet 1 tablet = 50 mg, By Mouth, 2 times a day, # 180 tablet, 3 Refills, Maintenance, 03/11/23 13:25:00 EST, Tablet, [facility] #[id number], Partial fill upon patient request if the prescription is for a schedule II opioid drug., 165, cm, 03/11/23 12:... Start Date: 03/11/23 Status: Ordered lisinopril 40 mg oral tablet 1 tablet = 40 mg, By Mouth, Daily, # 90 tablet, 3 Refills, Maintenance, 05/27/23 16:38:00 EST, Tablet, [facility] #[id number], Partial fill upon patient request if the prescription is for a schedule II opioid drug., 165 cm, 05/27/23 16:30:00 EST... Start Date: 05/27/23 Status: Ordered memantine 5 mg oral tablet 1 tablet = 5 mg, By Mouth, 2 times a day, TAKE 1 TABLET BY MOUTH TWICE DAILY FOR 90 DAYS, # 180 tablet, 3 Refills, Maintenance, 03/11/23 13:24:00 EST, Tablet, [facility] #[id number], Partial fill upon patient request if the prescription is for a... Start Date: 03/11/23 Status: Ordered metoprolol 25 mg oral tablet, extended release 25 mg, 1, tablet, By Mouth, Daily, # 90 tablet, Refills 3, Tot. Refills 3, Maintenance, 05/27/23 16:38:00 EST, Route to Pharmacy Electronically, [facility] #[id number], Partial fill upon patientrequest if the prescription is for a schedule II op... Start Date: 05/27/23 Status: Ordered Problem List Condition Confirmation Course Effective Dates Status H ealth Status Informant Atrial fibrillation and flutter Confirmed Active Osteoarthritis of knees, bilateral Confirmed Active Chronic sphenoidal sinusitis Confirmed Active Moderate dementia Confirmed Active Dementia Confirmed Active Essential hypertension Confirmed Active Fall at home Confirmed Active Physical exam Confirmed Active Rhabdomyolysis Confirmed Active Vitamin D deficiency Confirmed Active Results Radiology Reports * Exam Date Time Procedure Performing Provider Status 11/20/23 3:25 PM Wrist Comp Min 3 Views Left Cynthia Romero; Rosa (Verified) Notes: (Wrist Comp Min 3 Views Left) Reason For Exam: M25.532 left wrist pain RESULT: Wrist Comp Min 3 Views Left Hand Min 3 Views Left, Wrist Comp Min 3 Views Left, 3 views Reason: M25.532 left wrist pain COMPARISON: None. FINDINGS: No fractures or bone lesions. Normal alignment and joint spaces. No arthritic changes. Normal soft tissues. IMPRESSION: No definite acute fracture. WSN: [id number] Ordering Physician: Alex Ortiz Dictated By: Travis Schmid MD Dictated Date/Time: 11/20/23 7:25 pm Reviewed By: Travis Schmid MD Signed By: Travis Schmid MD Signed Date/Time: 11/20/23 7:25 pm Transcribed By: ELISEO Transcribed Date/Time: 11/20/23 6:53 pm * Exam Date Time Procedure Performing Provider Status 11/20/23 3:25 PM Hand Min 3 Views Left Cynthia Romero; Auth (Verified) Notes: (Hand Min 3 Views Left) Reason For Exam: M25.532 left wrist pain RESULT: Hand Min 3 Views Left Hand Min 3 Views Left, Wrist Comp Min 3 Views Left, 3 views Reason: M25.532 left wrist pain COMPARISON: None. FINDINGS: No fractures or bone lesions. Normal alignment and joint spaces. No arthritic changes. Normal soft tissues. IMPRESSION: No definite acute fracture. WSN: [id number] Ordering Physician: Alex Ortiz Dictated By: Travis Schmid MD Dictated Date/Time: 11/20/23 7:25 pm Reviewed By: Travis Schmid MD Signed By: Travis Schmid MD Signed Date/Time: 11/20/23 7:25 pm Transcribed By: ELISEO Transcribed Date/Time: 11/20/23 6:53 pm Social History Social History Type Response Smoking Status Former smoker, quit more than 30 days ago; Other: quit 1984; entered on: 03/11/23 Sex Patient Care team information Care Team Personnel Name: Marleni Lizarraga RN Position: [facility] RN Member Role: Primary Care Nurse Name: Alex Ortiz MD Position: [facility] Physician - Primary Care Member Role: PCP Address: Address: [address] [place] [id number] Name: Le Acuña NP Position: [facility] PCO Associate Professional Member Role: Primary Care Nurse Address: Address: [address] [place], [place] [address], [place] [address]- Name: Trupti Maya RN Position: [facility] SN RN Member Role: Primary Care Nurse Name: Delaney Carmona RN Position: [facility] KRIS Nurse Member Role: Primary Care Nurse Name: Olive Lim RN Position: [facility] RN Member Role: Primary Care Nurse Name: Belkis Scanlon RN Position: [facility] RN Member Role: Primary Care Nurse Name: Elijah Turpin RN Position: [facility] SN RN Member Role: Primary Care Nurse Care Team Related Persons Name: MONTSE MONTESI Address: home [address] [place] [address] Name: SIMON QUETA Address: [place] [address]
--- OUTSIDE RECORDS SUMMARY | 2023-12-15 11:31 | XMS_ITS | Continuity of Care Document ---
Author Organization [facility] Bert Anderson Jose Address [address] [place] [address]- Care Team Providers Care Day Camp Counselor Name Role Phone Darinel Turpin DO Primary Care Physician [facility]counter [facility] Date(s): 06/30/23 - 07/30/23 [facility] Bert Anderson Adult [address] [place] [address]- Allergies, Adverse Reactions, Alerts No Known Allergies [...] influenza virus vaccine, inactivated 03/07/14 Isaak rded [id number] 12y+ bivalent booster vax 02/05/22 Recorded SARS-CoV-2 (COVID-19) mRNA BNT-162b2 vac 02/18/21 Recorded SARS-CoV-2 (COVID-19) mRNA BNT-162b2 vac 07/02/20 Recorded SARS-CoV-2 (COVID-19) mRNA BNT-162b2 vac 06/10/20 Recorded zoster vaccine, inactivated 04/29/19 Recorded zoster vaccine, inactivated 02/08/19 Recorded pneumococcal 13-valent vaccine 02/22/15 Recorded tetanus/diphtheria/pertussis, acel(Tdap) 02/22/15 Recorded 1Result Comment: [facility]# [id number] Medications hydrALAZINE 50 mg oral tablet 1 tablet = 50 mg, By Mouth, 2 times a day, # 180 tablet, 3 Refills, Maintenance, 03/11/23 13:25:00 EST, Tablet, [email or web address] #[id number], Partial fill upon patient request if the prescription is for a schedule II opioid drug., 165, cm, 03/11/23 12:... Start Date: 03/11/23 Status: Ordered lisinopril 40 mg oral tablet 1 tablet = 40 mg, By Mouth, Daily, # 90 tablet, 3 Refills, Maintenance, 05/27/23 16:38:00 EST, Tablet, [email or web address] #[id number], Partial fill upon patient request if the prescription is for a schedule II opioid drug., 165, cm, 05/27/23 16:30:00 EST... Start Date: 05/27/23 Status: Ordered memantine 5 mg oral tablet 1 tablet = 5 mg, By Mouth, 2 times a day, TAKE 1 TABLET BY MOUTH TWICE DAILY FOR 90 DAYS, # 180 tablet, 3 Refills, Maintenance, 03/11/23 13:24:00 EST, Tablet, [email or web address] #[id number], Partial fill upon patient request if the prescription is for a... Start Date: 03/11/23 Status: Ordered metoprolol 25 mg oral tablet, extended release 25 mg, 1, tablet, By Mouth, Daily, # 90 tablet, Refills 3, Tot. Refills 3, Maintenance, 05/27/23 16:38:00 EST, Route to Pharmacy Electronically, [facility] #[id number], Partial fill upon patientrequest if the prescription is for a schedule II op... Start Date: 05/27/23 Status: Ordered Problem List Condition Confirmation Course Effective Dates Status H ealth Status Informant Atrial fibrillation and flutter Confirmed Active Osteoarthritis of knees, bilateral Confirmed Active Chronic sphenoidal sinusitis Confirmed Active Moderate dementia Confirmed Active Essential hypertension Confirmed Active Fall at home Confirmed Active Physical exam Confirmed Active Rhabdomyolysis Confirmed Active Social History Social History Type Response Smoking Status Former smoker, quit more than 30 days ago; Other: quit 1984; entered on: 03/11/23 Sex Patient Care team information Care Team Personnel Name: Marleni Lizarraga RN Position: [facility] RN Member Role: Primary Care Nurse Name: eL Acuña NP Position: [facility] PCO Associate Professional Member Role: Primary Care Nurse Address: Address: [address] [place] [address]- [place] Name: Trupti Maya RN Position: [facility] SN RN Member Role: Primary Care Nurse Name: Delaney Carmona RN Position: [facility] RN Member Role: Primary Care Nurse Name: Olive Lim RN Position: [facility] RN Member Role: Primary Care Nurse Name: Belkis Scanlon RN Position: [facility] RN Member Role: Primary Care Nurse Name: Iman Louis RN Position: [facility] RN Supv Member Role: Primary Care Nurse Name: Darinel Turpin DO Position: [facility] Physician - Primary Care Member Role: PCP Address: Address: [address] [place] [address]- Name: Elijah Turpin RN Position: [facility] Hospital Lead Mechanical Engineer Member Role: Primary Care Nurse Care Team Related Persons Name: CHERYL MONTES Address: home [address] [place] [address] Name: QUETA MONTES Address: [place] [address]
--- OUTSIDE RECORDS SUMMARY | 2023-12-15 11:31 | XMS_ITS | Continuity of Care Document ---
Author Organization [facility] Bert Anderson Jose lt Address [address] [place] [address]- Care Team Providers Care Comfort Filler Name Role Phone Darinel Turpin DO Primary Care Physician [phone] Encounter [facility] Date(s): 04/02/23 - 05/02/23 [facility] Bert Anderson Adult [address] [place] [address]- Allergies, Adverse Reactions, Alerts No Known Allergies Immunizations Given and Recorded Vaccine Date Status Refusal Reason pneumococcal 20-valent conjugate vaccine 1 03/11/23 Given [id number] 12y+ bivalent booster vax 02/05/22 Recorded SARS-CoV-2 [...] inactivated 03/07/14 Isaak rded zoster vaccine, inactivated 04/29/19 Recorded zoster vaccine, inactivated 02/08/19 Recorded pneumococcal 13-valent vaccine 02/22/15 Recorded tetanus/diphtheria/pertussis, acel(Tdap) 02/22/15 Recorded 1Result Comment: [facility]# [id number] Medications hydrALAZINE 50 mg oral tablet 1 tablet = 50 mg, By Mouth, 2 times a day, # 180 tablet, 3 Refills, Maintenance, 03/11/23 13:25:00 EST, Tablet, [facility] #[id number], Partial fill upon patient request if the prescription is for a schedule II opioid drug., 165, cm, 03/11/23 12:... Start Date: 03/11/23 Status: Ordered lisinopril 40 mg oral tablet 1 tablet = 40 mg, By Mouth, Daily, # 90 tablet, 3 Refills, Maintenance, 03/11/23 13:26:00 EST, Tablet, [facility] #[id number], Partial fill upon patient request if the prescription is for a schedule II opioid drug., 165, cm, 03/11/23 12:53:00 EST... Start Date: 03/11/23 Status: Ordered memantine 5 mg oral tablet 1 tablet = 5 mg, By Mouth, 2 times a day, TAKE 1 TABLET BY MOUTH TWICE DAILY FOR 90 DAYS, # 180 tablet, 3 Refills, Maintenance, 03/11/23 13:24:00 EST, Tablet, [facility] #[id number], Partial fill upon patient request if the prescription is for a... Start Date: 03/11/23 Status: Ordered metoprolol 25 mg oral tablet, extended release 25 mg, 1, tablet, By Mouth, Daily, # 90 tablet, Refills 3, Tot. Refills 3, Maintenance, 03/11/23 13:27:00 EST, Route to Pharmacy Electronically, [facility] #[id number], Partial fill upon patientrequest if the prescription is for a schedule II op... Start Date: 03/11/23 Status: Ordered Problem List Condition Confirmation Course Effective Dates Status H ealth Status Informant Atrial fibrillation and flutter Confirmed Active Osteoarthritis of knees, bilateral Confirmed Active Moderate dementia Confirmed Active Essential hypertension Confirmed Active Physical exam Confirmed Active Social History Social History Type Response Smoking Status Former smoker, quit more than 30 days ago; Other: quit 1984; entered on: 03/11/23 Sex Patient Care team information Care Team Personnel Name: Marleni Lizarraga RN Position: S RN Member Role: Primary Care Nurse Name: Trupti Maya RN Position: [facility] RN Member Role: Primary Care Nurse Name: Delaney Carmona RN Position: S RN Member Role: Primary Care Nurse Name: Olive Lim RN Position: [facility] RN Member Role: Primary Care Nurse Name: Le Sheriff NP Position: [facility] PCO Associate Professional Member Role: Primary Care Nurse Address: Address: [address] [place] [address]- Name: Belkis Scanlon RN Position: [facility] RN Member Role: Primary Care Nurse Name: Iman Louis RN Position: [facility] RN Supv Member Role: Primary Care Nurse Name: Darinel Turpin DO Position: [facility] Physician - Primary Care Member Role: PCP Address: Address: [address] [place] [address]- [place] Name: Elijah Turpin RN Position: [facility] Supervisor Title Member Role: Primary Care Nurse Care Team Related Persons Name: SIMONCHERYL Address: home [address] [place] [address] Name: QUETA MONTES Address: [place] [address]
--- OUTSIDE RECORDS SUMMARY | 2023-12-15 11:31 | XMS_ITS | Continuity of Care Document ---
Author Organization [facility] Jose Address [address] [place] [address]- Care Team Providers Care Head Bellhop Captain Name Role Phone Darinel Turpin DO Primary Care Physician Encounter [facility] Date(s): 05/26/23 - 06/25/23 [facility] Adult [address] [place] [address]- Allergies, Adverse Reactions, Alerts No Known Allergies [...] influenza virus vaccine, inactivated 03/07/14 Isaak rded [id number] 12y+ bivalent booster vax 02/05/22 Recorded SARS-CoV-2 (COVID-19) mRNA BNT-162b2 vac 02/18/21 Recorded SARS-CoV-2 (COVID-19) mRNA BNT-162b2 vac 07/02/20 Recorded SARS-CoV-2 (COVID-19) mRNA BNT-162b2 vac 06/10/20 Recorded zoster vaccine, inactivated 04/29/19 Recorded zoster vaccine, inactivated 02/08/19 Recorded pneumococcal 13-valent vaccine 02/22/15 Recorded tetanus/diphtheria/pertussis, acel(Tdap) 02/22/15 Recorded 1Result Comment: [facility]# [id number] Medications hydrALAZINE 50 mg oral tablet 1 tablet = 50 mg, By Mouth, 2 times a day, # 180 tablet, 3 Refills, Maintenance, 03/11/23 13:25:00 EST, Tablet, [facility] #[id number], Partial fill upon patient request if the prescription is for a schedule II opioid drug., 165, cm, 03/11/23 12:... Start Date: 03/11/23 Status: Ordered lisinopril 40 mg oral tablet 1 tablet = 40 mg, By Mouth, Daily, # 90 tablet, 3 Refills, Maintenance, 05/27/23 16:38:00 EST, Tablet, [facility] #[id number], Partial fill upon patient request if the prescription is for a schedule II opioid drug., 165, cm, 05/27/23 16:30:00 EST... Start Date: 05/27/23 Status: Ordered memantine 5 mg oral tablet 1 tablet = 5 mg, By Mouth, 2 times a day, TAKE 1 TABLET BY MOUTH TWICE DAILY FOR 90 DAYS, # 180 tablet, 3 Refills, Maintenance, 03/11/23 13:24:00 EST, Tablet, [facility] #[id number], Partial fill upon patient request if the prescription is for a... Start Date: 03/11/23 Status: Ordered metoprolol 25 mg oral tablet, extended release 25 mg, 1, tablet, By Mouth, Daily, # 90 tablet, Refills 3, Tot. Refills 3, Maintenance, 05/27/23 16:38:00 EST, Route to Pharmacy Electronically, [facility] #[id number], Partial fill upon patientrequest if the prescription [...] Team Personnel Name: Marleni Lizarraga RN Position: [facility] RN Member Role: Primary Care Nurse Name: Le Acuña NP Position: [facility] PCO Associate Professional Member Role: Primary Care Nurse Address: Address: [address] [place] [address]- [place] Name: Trupti Maya RN Position: [facility] SN RN Member Role: Primary Care Nurse Name: Delaney Carmona RN Position: [facility] RN Member Role: Primary Care Nurse Name: Olive Lim RN Position: [facility] RN Member Role: Primary Care Nurse Name: Belkis Scanlon RN Position: [facility] RN Member Role: Primary Care Nurse Name: Iman Louis RN Position: [facility] RN Supv Member Role: Primary Care Nurse Name: Darinel Turpin DO Position: [facility] Physician - Primary Care Member Role: PCP Address: Address: [address] [facility] [place] [address]- Name: Elijah Turpin RN Position: [facility] Computer Numeric Control Setter Member Role: Primary Care Nurse Care Team Related Persons Name: CHERYL MONTES Address: home [address] [place] [address] Name: QUETA MONTES Address: [place] [address]
--- OUTSIDE RECORDS SUMMARY | 2023-12-15 11:31 | XMS_ITS | Continuity of Care Document ---
Author Organization [facility] Bert Anderson Jose Address [address] [place] [address]- Care Team Providers Care Recruitment Manager Name Role Phone Darinel Turpin DO Primary Care Physician [phone] Encounter [facility] Date(s): 05/14/23 - 06/13/23 [facility] Bert Anderson Adult [address] [place] [address]- Allergies, Adverse Reactions, Alerts No Known Allergies [...] influenza virus vaccine, inactivated 03/07/14 Isaak rded [id number] 12y+ bivalent booster vax 02/05/22 Recorded SARS-CoV-2 (COVID-19) mRNA BNT-162b2 vac 02/18/21 Recorded SARS-CoV-2 (COVID-19) mRNA BNT-162b2 vac 07/02/20 Recorded SARS-CoV-2 (COVID-19) mRNA BNT-162b2 vac 06/10/20 Recorded zoster vaccine, inactivated 04/29/19 Recorded zoster vaccine, inactivated 02/08/19 Recorded pneumococcal 13-valent vaccine 02/22/15 Recorded tetanus/diphtheria/pertussis, acel(Tdap) 02/22/15 Recorded 1Result Comment: [facility]# [id number] Medications hydrALAZINE 50 mg oral tablet 1 tablet = 50 mg, By Mouth, 2 times a day, # 180 tablet, 3 Refills, Maintenance, 03/11/23 13:25:00 EST, Tablet, [facility] #[id number], Partial fill upon patient request if the prescription is for a schedule II opioid drug., 165, cm, 03/11/23 12:... Start Date: 03/11/23 Status: Ordered lisinopril 40 mg oral tablet 1 tablet = 40 mg, By Mouth, Daily, # 90 tablet, 3 Refills, Maintenance, 05/27/23 16:38:00 EST, Tablet, [facility] #[id number], Partial fill upon patient request if the prescription is for a schedule II opioid drug., 165, cm, 05/27/23 16:30:00 EST... Start Date: 05/27/23 Status: Ordered memantine 5 mg oral tablet 1 tablet = 5 mg, By Mouth, 2 times a day, TAKE 1 TABLET BY MOUTH TWICE DAILY FOR 90 DAYS, # 180 tablet, 3 Refills, Maintenance, 03/11/23 13:24:00 EST, Tablet, [facility] #[id number], Partial fill upon patient request if the prescription is for a... Start Date: 03/11/23 Status: Ordered metoprolol 25 mg oral tablet, extended release 25 mg, 1, tablet, By Mouth, Daily, # 90 tablet, Refills 3, Tot. Refills 3, Maintenance, 05/27/23 16:38:00 EST, Route to Pharmacy Electronically, [facility] #[id number], Partial fill upon patientrequest if the prescription [...] Care Nurse Name: Le Acuña NP Position: [facility] PCO Associate Professional Member Role: Primary Care Nurse Address: Address: [address] [place] [address]- [place] Name: Trupti Maya RN Position: [facility] SN RN Member Role: Primary Care Nurse Name: Delaney Carmona RN Position: [facility] RN Member Role: Primary Care Nurse Name: Olive Lim RN Position: [facility] RN Member Role: Primary Care Nurse Name: Belkis Scanlon RN Position: [facility] RN Member Role: Primary Care Nurse Name: Iman Louis RN Position: [facility] RN Supv Member Role: Primary Care Nurse Name: Darinel Turpin DO Position: [facility] Physician - Primary Care Member Role: PCP Address: Address: [address] [place] [address]- Name: Elijah Turpin RN Position: [facility] Musical String Maker Member Role: Primary Care Nurse Care Team Related Persons Name: CHERYL MONTES Address: home [address] [place] [address] Name: QUETA MONTES Address: [place] [address]
--- OUTSIDE RECORDS SUMMARY | 2023-12-15 11:31 | XMS_ITS | Continuity of Care Document ---
Author Organization [facility] Jose lt Address [address] [place] [address]- Care Team Providers Care Concierge Manager Name Role Phone Darinel Turpin DO Primary Care Physician Encounter [facility] [place]s): 09/23/23 - 10/23/23 [facility] [address] [place] [address]- Encounter Diagnosis Dementia(Discharge Diagnosis) - 08/20/23 Attending Physician: Felice Willams Admitting Physician: AdmFelice stokes Referring Physician: AdmtrFelice Allergies, Adverse Reactions, Alerts No Known Allergies [...] influenza virus vaccine, inactivated 03/07/14 Isaak rded [id number] 12y+ bivalent booster vax 02/05/22 Recorded SARS-CoV-2 (COVID-19) mRNA BNT-162b2 vac 02/18/21 Recorded SARS-CoV-2 (COVID-19) mRNA BNT-162b2 vac 07/02/20 Recorded SARS-CoV-2 (COVID-19) mRNA BNT-162b2 vac 06/10/20 Recorded zoster vaccine, inactivated 04/29/19 Recorded zoster vaccine, inactivated 02/08/19 Recorded pneumococcal 13-valent vaccine 10/22/15 Recorded tetanus/diphtheria/pertussis, acel(Tdap) 02/22/15 Recorded 1Result Comment: [facility]# [id number] Medications hydrALAZINE 50 mg oral tablet 1 tablet = 50 mg, By Mouth, 2 times a day, # 180 tablet, 3 Refills, Maintenance, 03/11/23 13:25:00 EST, Tablet, [facility] #[id number], Partial fill upon patient request if the prescription is for a schedule II opioid drug., 165, cm, 03/11/23 12:... Start Date: 03/11/23 Status: Ordered lisinopril 40 mg oral tablet 1 tablet = 40 mg, By Mouth, Daily, # 90 tablet, 3 Refills, Maintenance, 05/27/23 16:38:00 EST, Tablet, [facility] #[id number], Partial fill upon patient request if the prescription is for a schedule II opioid drug., 165, cm, 05/27/23 16:30:00 EST... Start Date: 05/27/23 Status: Ordered memantine 5 mg oral tablet 1 tablet = 5 mg, By Mouth, 2 times a day, TAKE 1 TABLET BY MOUTH TWICE DAILY FOR 90 DAYS, # 180 tablet, 3 Refills, Maintenance, 03/11/23 13:24:00 EST, Tablet, [facility] #[id number], Partial fill upon patient request if the prescription is for a... Start Date: 03/11/23 Status: Ordered metoprolol 25 mg oral tablet, extended release 25 mg, 1, tablet, By Mouth, Daily, # 90 tablet, Refills 3, Tot. Refills 3, Maintenance, 05/27/23 16:38:00 EST, Route to Pharmacy Electronically, [facility] #[id number], Partial fill upon patientrequest if the prescription [...] Confirmed Active Vitamin D deficiency Confirmed Active Diagnosis Diagnosis Type Effective Dates Health Status Clini mario Service Informant Dementia Discharge Diagnosis 08/20/23 Social History Social History Type Response Smoking Status Former smoker, quit more than 30 days ago; Other: quit 1984; entered on: 03/11/23 Sex Hospital Consult note * Event Display: Inpatient Consult Note, Non-BH Authored Date: * Event Display: Inpatient Consult Note, Non-BH Authored Date: * Event Display: Inpatient Consult Note, Non-BH Authored Date: Laboratory * Event Display: Non BH Lab Results Authored Date: * Event Display: Non BH Lab Results Authored Date: Radiology * Event Display: X-Ray Knee, Non- BH Authored Date: Patient Care team information Care Team Personnel Name: Marleni Lizarraga RN Position: [facility] RN Member Role: Primary Care Nurse Name: Le Acuña NP Position: [facility] PCO Associate Professional Member Role: Primary Care Nurse Address: Address: [address] [place] [address]- Name: Trupti Maya RN Position: [facility] SN RN Member Role: Primary Care Nurse Name: Delaney Carmona RN Position: [facility] RN Member Role: Primary Care Nurse Name: Olive Lim RN Position: [facility] RN Member Role: Primary Care Nurse Name: Belkis Scanlon RN Position: [facility] RN Member Role: Primary Care Nurse Name: Iman Louis RN Position: [facility] RN Supv Member Role: Primary Care Nurse Name: Darinel Turpin DO Position: [facility] Physician - Primary Care Member Role: PCP Address: Address: [address] [place] [address] Adult Medicine [place], [place] - [place] Name: Elijah Turpin RN Position: [facility] Hospital Traveling Clerk Member Role: Primary Care Nurse Care Team Related Persons Name: CHERYL MONTES Address: home [address] [place] [address] Name: QUETA MONTES Address: [place], [place]
--- OUTSIDE RECORDS SUMMARY | 2023-12-15 11:31 | XMS_ITS | Continuity of Care Document ---
Author Organization [facility] Bert Anderson Jose Address [address] [place] [address]- Care Team Providers Care Armed Security Professional Name Role Phone Darinel Turpin DO Primary Care Physician [facility] Date[facility]s): 07/16/23 - 08/15/23 [facility] Bert Anderson Adult [address] [place] [address]- Allergies, Adverse Reactions, Alerts No Known Allergies [...] influenza virus vaccine, inactivated 03/07/14 Isaak rded [id number] 12y+ bivalent booster vax 02/05/22 Recorded SARS-CoV-2 (COVID-19) mRNA BNT-162b2 vac 02/18/21 Recorded SARS-CoV-2 (COVID-19) mRNA BNT-162b2 vac 07/02/20 Recorded SARS-CoV-2 (COVID-19) mRNA BNT-162b2 vac 06/10/20 Recorded zoster vaccine, inactivated 04/29/19 Recorded zoster vaccine, inactivated 02/08/19 Recorded pneumococcal 13-valent vaccine 02/22/15 Recorded tetanus/diphtheria/pertussis, acel(Tdap) 02/22/15 Recorded 1Result Comment: [facility]# [id number] Medications hydrALAZINE 50 mg oral tablet 1 tablet = 50 mg, By Mouth, 2 times a day, # 180 tablet, 3 Refills, Maintenance, 03/11/23 13:25:00 EST, Tablet, [facility] #[id number], Partial fill upon patient request if the prescription is for a schedule II opioid drug., 165, cm, 03/11/23 12:... Start Date: 03/11/23 Status: Ordered lisinopril 40 mg oral tablet 1 tablet = 40 mg, By Mouth, Daily, # 90 tablet, 3 Refills, Maintenance, 05/27/23 16:38:00 EST, Tablet, [facility] #[id number], Partial fill upon patient request if the prescription is for a schedule II opioid drug., 165, cm, 05/27/23 16:30:00 EST... Start Date: 05/27/23 Status: Ordered memantine 5 mg oral tablet 1 tablet = 5 mg, By Mouth, 2 times a day, TAKE 1 TABLET BY MOUTH TWICE DAILY FOR 90 DAYS, # 180 tablet, 3 Refills, Maintenance, 03/11/23 13:24:00 EST, Tablet, [facility] #[id number], Partial fill upon patient request if the prescription is for a... Start Date: 03/11/23 Status: Ordered metoprolol 25 mg oral tablet, extended release 25 mg, 1, tablet, By Mouth, Daily, # 90 tablet, Refills 3, Tot. Refills 3, Maintenance, 05/27/23 16:38:00 EST, Route to Pharmacy Electronically, [facility] #[id number], Partial fill upon patientrequest if the prescription [...] Care Nurse Name: Le Acuña NP Position: [facility] PCO Associate Professional Member Role: Primary Care Nurse Address: Address: [address] [place] [address]- [place] Name: Trupti Maya RN Position: [facility] SN RN Member Role: Primary Care Nurse Name: Delaney Carmona RN Position: [facility] RN Member Role: Primary Care Nurse Name: Olive Lim RN Position: [facility] RN Member Role: Primary Care Nurse Name: Belkis Scanlon RN Position: [facility] RN Member Role: Primary Care Nurse Name: Iman Louis RN Position: [facility] RN Supv Member Role: Primary Care Nurse Name: Darinel Turpin DO Position: [facility] Physician - Primary Care Member Role: PCP Address: Address: [address] [place] [address]- Name: Elijah Turpin RN Position: [facility] Milling Machine Operator Gear Member Role: Primary Care Nurse Care Team Related Persons Name: CHERYL MONTES Address: home [address] [place] [address] Name: QUETA MONTES Address: [place] [address]
--- OUTSIDE RECORDS SUMMARY | 2023-12-15 11:31 | XMS_ITS | Continuity of Care Document ---
Author Organization [facility] Bert Anderson Jose Address [address] [place] [address]- Care Team Providers Care Keller Machine Operator Name Role Phone Darinel Turpin DO Primary Care Physician [phone] Encounter [facility] Date(s): 06/30/23 - 07/30/23 [facility] Bert Anderson Adult [address] [place] [address]- Allergies, Adverse Reactions, Alerts No Known Allergies [...] influenza virus vaccine, inactivated 03/07/14 Isaak rded [id number] 12y+ bivalent booster vax 02/05/22 Recorded SARS-CoV-2 (COVID-19) mRNA BNT-162b2 vac 02/18/21 Recorded SARS-CoV-2 (COVID-19) mRNA BNT-162b2 vac 07/02/20 Recorded SARS-CoV-2 (COVID-19) mRNA BNT-162b2 vac 06/10/20 Recorded zoster vaccine, inactivated 04/29/19 Recorded zoster vaccine, inactivated 02/08/19 Recorded pneumococcal 13-valent vaccine 02/22/15 Recorded tetanus/diphtheria/pertussis, acel(Tdap) 02/22/15 Recorded 1Result Comment: [facility]# [id number] Medications hydrALAZINE 50 mg oral tablet 1 tablet = 50 mg, By Mouth, 2 times a day, # 180 tablet, 3 Refills, Maintenance, 03/11/23 13:25:00 EST, Tablet, [facility] #[id number], Partial fill upon patient request if the prescription is for a schedule II opioid drug., 165, cm, 03/11/23 12:... Start Date: 03/11/23 Status: Ordered lisinopril 40 mg oral tablet 1 tablet = 40 mg, By Mouth, Daily, # 90 tablet, 3 Refills, Maintenance, 05/27/23 16:38:00 EST, Tablet, [facility] #[id number], Partial fill upon patient request if the prescription is for a schedule II opioid drug., 165, cm, 05/27/23 16:30:00 EST... Start Date: 05/27/23 Status: Ordered memantine 5 mg oral tablet 1 tablet = 5 mg, By Mouth, 2 times a day, TAKE 1 TABLET BY MOUTH TWICE DAILY FOR 90 DAYS, # 180 tablet, 3 Refills, Maintenance, 03/11/23 13:24:00 EST, Tablet, [facility] #[id number], Partial fill upon patient request if the prescription is for a... Start Date: 03/11/23 Status: Ordered metoprolol 25 mg oral tablet, extended release 25 mg, 1, tablet, By Mouth, Daily, # 90 tablet, Refills 3, Tot. Refills 3, Maintenance, 05/27/23 16:38:00 EST, Route to Pharmacy Electronically, [facility] #[id number], Partial fill upon patientrequest if the prescription [...] Care Nurse Name: Le Acuña NP Position: [facility] PCO Associate Professional Member Role: Primary Care Nurse Address: Address: [address] [place] [address]- [place] Name: Trupti Maya RN Position: [facility] SN RN Member Role: Primary Care Nurse Name: Delaney Carmona RN Position: [facility] RN Member Role: Primary Care Nurse Name: Olive Lim RN Position: [facility] RN Member Role: Primary Care Nurse Name: Belkis Scanlon RN Position: [facility] RN Member Role: Primary Care Nurse Name: Iman Louis RN Position: [facility] RN Supv Member Role: Primary Care Nurse Name: Darinel Turpin DO Position: [facility] Physician - Primary Care Member Role: PCP Address: Address: [address] [place] [address]- Name: Elijah Turpin RN Position: [facility] Hospital Contract Negotiator Member Role: Primary Care Nurse Care Team Related Persons Name: CHERYL MONTES Address: home [address] [place] [address] Name: QUETA MONTES Address: [place] [address]
--- OUTSIDE RECORDS SUMMARY | 2023-12-15 11:31 | XMS_ITS | Continuity of Care Document ---
Author Organization [facility] Bert Anderson Jose Address [address] [place] [address]- Care Team Providers Care Key Account Coordinator Name Role Phone Darinel Turpin DO Primary Care Physician [facility]counter [facility] Date[facility]s): 05/20/23 - 06/19/23 [facility] Bert Anderson Adult [address] [place] [address]- Allergies, Adverse Reactions, Alerts No Known Allergies [...] influenza virus vaccine, inactivated 03/07/14 Isaak rded [id number] 12y+ bivalent booster vax 02/05/22 Recorded SARS-CoV-2 (COVID-19) mRNA BNT-162b2 vac 02/18/21 Recorded SARS-CoV-2 (COVID-19) mRNA BNT-162b2 vac 07/02/20 Recorded SARS-CoV-2 (COVID-19) mRNA BNT-162b2 vac 06/10/20 Recorded zoster vaccine, inactivated 04/29/19 Recorded zoster vaccine, inactivated 02/08/19 Recorded pneumococcal 13-valent vaccine 02/22/15 Recorded tetanus/diphtheria/pertussis, acel(Tdap) 02/22/15 Recorded 1Result Comment: [facility]# [id number] Medications hydrALAZINE 50 mg oral tablet 1 tablet = 50 mg, By Mouth, 2 times a day, # 180 tablet, 3 Refills, Maintenance, 03/11/23 13:25:00 EST, Tablet, [facility] #[id number], Partial fill upon patient request if the prescription is for a schedule II opioid drug., 165, cm, 03/11/23 12:... Start Date: 03/11/23 Status: Ordered lisinopril 40 mg oral tablet 1 tablet = 40 mg, By Mouth, Daily, # 90 tablet, 3 Refills, Maintenance, 05/27/23 16:38:00 EST, Tablet, [facility] #[id number], Partial fill upon patient request if the prescription is for a schedule II opioid drug., 165, cm, 05/27/23 16:30:00 EST... Start Date: 05/27/23 Status: Ordered memantine 5 mg oral tablet 1 tablet = 5 mg, By Mouth, 2 times a day, TAKE 1 TABLET BY MOUTH TWICE DAILY FOR 90 DAYS, # 180 tablet, 3 Refills, Maintenance, 03/11/23 13:24:00 EST, Tablet, [facility] #[id number], Partial fill upon patient request if the prescription is for a... Start Date: 03/11/23 Status: Ordered metoprolol 25 mg oral tablet, extended release 25 mg, 1, tablet, By Mouth, Daily, # 90 tablet, Refills 3, Tot. Refills 3, Maintenance, 05/27/23 16:38:00 EST, Route to Pharmacy Electronically, [facility] #[id number], Partial fill upon patientrequest if the prescription [...] Care Nurse Name: Le Acuña NP Position: [facility] PCO Associate Professional Member Role: Primary Care Nurse Address: Address: [address] [place] [address]- [place] Name: Trupti Maya RN Position: [facility] SN RN Member Role: Primary Care Nurse Name: Delaney Carmona RN Position: [facility] RN Member Role: Primary Care Nurse Name: Olive Lim RN Position: [facility] RN Member Role: Primary Care Nurse Name: Belkis Scanlon RN Position: [facility] RN Member Role: Primary Care Nurse Name: Iman Louis RN Position: [facility] RN Supv Member Role: Primary Care Nurse Name: Darinel Turpin DO Position: [facility] Physician - Primary Care Member Role: PCP Address: Address: [address] [place] [address]- Name: Elijah Turpin RN Position: [facility] Taproom Attendant Member Role: Primary Care Nurse Care Team Related Persons Name: CHERYL MONTES Address: home [address] [place] [address] Name: QUETA MONTES Address: [place] [address]
--- OUTSIDE RECORDS SUMMARY | 2023-12-15 11:31 | XMS_ITS | Continuity of Care Document ---
Author Organization [facility] Bert Anderson Jose Address [address] [place] [address]- Care Team Providers Care Credit Union Manager Name Role Phone Darinel Turpin DO Primary Care Physician [phone] Encounter [facility] Date(s): 06/25/23 - 10/23/23 [facility] Adult [address] [place] [address]- Attending Physician: Darinel Turpin DO Allergies, Adverse [...] influenza virus vaccine, inactivated 03/07/14 Isaak rded [id number] 12y+ bivalent booster vax 02/05/22 Recorded SARS-CoV-2 (COVID-19) mRNA BNT-162b2 vac 02/18/21 Recorded SARS-CoV-2 (COVID-19) mRNA BNT-162b2 vac 07/02/20 Recorded SARS-CoV-2 (COVID-19) mRNA BNT-162b2 vac 06/10/20 Recorded zoster vaccine, inactivated 04/29/19 Recorded zoster vaccine, inactivated 02/08/19 Recorded pneumococcal 13-valent vaccine 02/22/15 Recorded tetanus/diphtheria/pertussis, acel(Tdap) 02/22/15 Recorded 1Result Comment: [facility]# [id number] Medications hydrALAZINE 50 mg oral tablet 1 tablet = 50 mg, By Mouth, 2 times a day, # 180 tablet, 3 Refills, Maintenance, 03/11/23 13:25:00 EST, Tablet, [facility] #[id number], Partial fill upon patient request if the prescription is for a schedule II opioid drug., 165, cm, 03/11/23 12:... Start Date: 03/11/23 Status: Ordered lisinopril 40 mg oral tablet 1 tablet = 40 mg, By Mouth, Daily, # 90 tablet, 3 Refills, Maintenance, 05/27/23 16:38:00 EST, Tablet, [facility] #[id number], Partial fill upon patient request if the prescription is for a schedule II opioid drug., 165, cm, 05/27/23 16:30:00 EST... Start Date: 05/27/23 Status: Ordered memantine 5 mg oral tablet 1 tablet = 5 mg, By Mouth, 2 times a day, TAKE 1 TABLET BY MOUTH TWICE DAILY FOR 90 DAYS, # 180 tablet, 3 Refills, Maintenance, 03/11/23 13:24:00 EST, Tablet, [facility] #[id number], Partial fill upon patient request if the prescription is for a... Start Date: 03/11/23 Status: Ordered metoprolol 25 mg oral tablet, extended release 25 mg, 1, tablet, By Mouth, Daily, # 90 tablet, Refills 3, Tot. Refills 3, Maintenance, 05/27/23 16:38:00 EST, Route to Pharmacy Electronically, [facility] #[id number], Partial fill upon patientrequest if the prescription [...] Confirmed Active Vitamin D deficiency Confirmed Active Social History Social History Type Response Smoking Status Former smoker, quit more than 30 days ago; Other: quit 1984; entered on: 03/11/23 Sex Patient Care team information Care Team Personnel Name: Marleni Lizarraga RN Position: [facility] RN Member Role: Primary Care Nurse Name: Domenico REYES, Le Waggoner Position: [facility] PCO Associate Professional Member Role: Primary Care Nurse Address: Address: [address] [place] [address]- [place] Name: Trupti Maya RN Position: [facility] SN RN Member Role: Primary Care Nurse Name: Delaney Carmona RN Position: [facility] RN Member Role: Primary Care Nurse Name: Olive Lim RN Position: [facility] RN Member Role: Primary Care Nurse Name: Belkis Scanlon RN Position: [facility] RN Member Role: Primary Care Nurse Name: mIan Louis RN Position: [facility] RN Supv Member Role: Primary Care Nurse Name: Darinel Turpin DO Position: [facility] Physician - Primary Care Member Role: PCP Address: Address: [address] [facility] [place] [address]- [place] Name: Elijah Turpin RN Position: [facility] Photoengraving Photographer Member Role: Primary Care Nurse Care Team Related Persons Name: CHERYL MONTES Address: home [address] [place] [address] Name: QUETA MONTES Address: [place] [address]
[2023-12-15 11:32] LABS: Appearance Urine Turbid; Color Urine Yellow; Glucose Urine UA Negative (Negative); Leukocyte Esterase Urine Large (3+) (Negative); Nitrite Urine Positive (Negative); PH 6.5 (5.0-9.0); Specific Gravity - Urine 1.015 (1.005-1.025); UMIC TRIGGER UACC YES; Urine Blood Negative (Negative); Urine Ketones Negative (Negative); Urine Protein 30 (1+) mg/dL (Neg-Trace)
--- OUTSIDE RECORDS SUMMARY | 2023-12-15 11:32 | XMS_ITS | Continuity of Care Document ---
Author Organization [facility] Bert Anderson Jose lt Address [address] [place] [address]- Care Team Providers Care Lead Blender Name Role Phone Darinel Turpin DO Primary Care Physician [facility] Date[facility]s): 04/24/23 - 05/24/23 [facility] Bert Anderson Adult [address] [place] [address]- Allergies, Adverse Reactions, Alerts No Known Allergies Immunizations Given and Recorded Vaccine Date Status Refusal Reason pneumococcal 20-valent conjugate vaccine 1 03/11/23 Given [id number] 12y+ bivalent booster vax 02/05/22 Recorded SARS-CoV-2 [...] tetanus/diphtheria/pertussis, acel(Tdap) 02/22/15 Recorded 1Result Comment: [facility]# [id number] Medications amoxicillin 500 mg oral capsule 1 capsule = 500 mg, By Mouth, 2 times a day, for 10 days, # 20 capsule, 0 Refills, Acute 05/29/23 12:38:00 EST, 05/19/23 12:38:00 EST, [facility] #[id number], Partial fill upon patient request if the prescription is for a schedule II opioid drug.... Start Date: 05/19/23 Stop Date: 05/29/23 Status: Ordered hydrALAZINE 50 mg oral tablet 1 tablet = 50 mg, By Mouth, 2 times a day, # 180 tablet, 3 Refills, Maintenance, 03/11/23 13:25:00 EST, Tablet, [facility] #[id number], Partial fill upon patient request if the prescription is for a schedule II opioid drug., 165, cm, 03/11/23 12:... Start Date: 03/11/23 Status: Ordered lisinopril 40 mg oral tablet 1 tablet = 40 mg, By Mouth, Daily, # 90 tablet, 3 Refills, Maintenance, 03/11/23 13:26:00 EST, Tablet, [facility] #[id number], Partial fill upon patient request if the prescription is for a schedule II opioid drug., 165, cm, 03/11/23 12:53:00 EST... Start Date: 03/11/23 Status: Ordered memantine 5 mg oral tablet 1 tablet = 5 mg, By Mouth, 2 times a day, TAKE 1 TABLET BY MOUTH TWICE DAILY FOR 90 DAYS, # 180 tablet, 3 Refills, Maintenance, 03/11/23 13:24:00 EST, Tablet, [facility] #[id number], Partial fill upon patient request if the prescription is for a... Start Date: 03/11/23 Status: Ordered metoprolol 25 mg oral tablet, extended release 25 mg, 1, tablet, By Mouth, Daily, # 90 tablet, Refills 3, Tot. Refills 3, Maintenance, 03/11/23 13:27:00 EST, Route to Pharmacy Electronically, [facility] #[id number], Partial fill upon patientrequest if the prescription [...] Team Personnel Name: Marleni Lizarraga RN Position: [facility] RN Member Role: Primary Care Nurse Name: Trupti Maya RN Position: [facility] SN RN Member Role: Primary Care Nurse Name: Delaney Carmona RN Position: [facility] RN Member Role: Primary Care Nurse Name: Olive Lim RN Position: [facility] RN Member Role: Primary Care Nurse Name: Le Sheriff NP Position: [facility] PCO Associate Professional Member Role: Primary Care Nurse Address: Address: [address] [place] [address]- Name: Belkis Scanlon RN Position: [facility] RN Member Role: Primary Care Nurse Name: Iman Louis RN Position: [facility] RN Supv Member Role: Primary Care Nurse Name: Darinel Turpin DO Position: [facility] Physician - Primary Care Member Role: PCP Address: Address: [address] [place] [address] [place] [address]- [place] Name: Elijah Turpin RN Position: [facility] Hospital Manager Winter Member Role: Primary Care Nurse Care Team Related Persons Name: CHERYL MONTES Address: home [address] [place] [address] Name: QUETA MONTES Address: [place] [address]
--- OUTSIDE RECORDS SUMMARY | 2023-12-15 11:32 | XMS_ITS | Continuity of Care Document ---
Author Organization [facility] Address [address] [place] [address]- Care Team Providers Care Director Orange Name Role Phone Darinel Turpin DO Primary Care Physician [phone] Encounter [facility] Date(s): 05/27/23 - 06/26/23 [facility] [address] [place] [address]- Allergies, Adverse Reactions, Alerts No Known Allergies [...] influenza virus vaccine, inactivated 03/07/14 Isaak rded [id number] 12y+ bivalent booster vax 02/05/22 Recorded SARS-CoV-2 (COVID-19) mRNA BNT-162b2 vac 02/18/21 Recorded SARS-CoV-2 (COVID-19) mRNA BNT-162b2 vac 07/02/20 Recorded SARS-CoV-2 (COVID-19) mRNA BNT-162b2 vac 06/10/20 Recorded zoster vaccine, inactivated 04/29/19 Recorded zoster vaccine, inactivated 02/08/19 Recorded pneumococcal 13-valent vaccine 02/22/15 Recorded tetanus/diphtheria/pertussis, acel(Tdap) 02/22/15 Recorded 1Result Comment: [facility]# [id number] Medications hydrALAZINE 50 mg oral tablet 1 tablet = 50 mg, By Mouth, 2 times a day, # 180 tablet, 3 Refills, Maintenance, 03/11/23 13:25:00 EST, Tablet, [facility] #[id number], Partial fill upon patient request if the prescription is for a schedule II opioid drug., 165, cm, 03/11/23 12:... Start Date: 03/11/23 Status: Ordered lisinopril 40 mg oral tablet 1 tablet = 40 mg, By Mouth, Daily, # 90 tablet, 3 Refills, Maintenance, 05/27/23 16:38:00 EST, Tablet, [facility] #[id number], Partial fill upon patient request if the prescription is for a schedule II opioid drug., 165, cm, 05/27/23 16:30:00 EST... Start Date: 05/27/23 Status: Ordered memantine 5 mg oral tablet 1 tablet = 5 mg, By Mouth, 2 times a day, TAKE 1 TABLET BY MOUTH TWICE DAILY FOR 90 DAYS, # 180 tablet, 3 Refills, Maintenance, 03/11/23 13:24:00 EST, Tablet, [facility] #[id number], Partial fill upon patient request if the prescription is for a... Start Date: 03/11/23 Status: Ordered metoprolol 25 mg oral tablet, extended release 25 mg, 1, tablet, By Mouth, Daily, # 90 tablet, Refills 3, Tot. Refills 3, Maintenance, 05/27/23 16:38:00 EST, Route to Pharmacy Electronically, [facility] #[id number], Partial fill upon patientrequest if the prescription is for a schedule II op... Start Date: 05/27/23 Status: Ordered Problem List Condition Confirmation Course Effective Dates Status H ealt Status Informant Atrial fibrillation and flutter Confirmed [...] Team Personnel Name: Marleni Lizarraga RN Position: [facility] RN Member Role: Primary Care Nurse Name: Le Acuña NP Position: [facility] PCO Associate Professional Member Role: Primary Care Nurse Address: Address: [address] [place] [address]- [place] Name: Trupti Maya RN Position: [facility] SN RN Member Role: Primary Care Nurse Name: Delaney Carmona RN Position: [facility] RN Member Role: Primary Care Nurse Name: Olive Lim RN Position: [facility] RN Member Role: Primary Care Nurse Name: Belkis Scanlon RN Position: [facility] RN Member Role: Primary Care Nurse Name: Iman Luois RN Position: [facility] RN Supv Member Role: Primary Care Nurse Name: Darinel Turpin DO Position: [facility] Physician - Primary Care Member Role: PCP Address: Address: [address] [facility] [place] [address]- Name: Elijah Turpin RN Position: [facility] Deputy Clerk Member Role: Primary Care Nurse Care Team Related Persons Name: CHERYL MONTES Address: home [address] [place] [address] Name: QUETA MONTES Address: [place] [address]
--- OUTSIDE RECORDS SUMMARY | 2023-12-15 11:32 | XMS_ITS | Continuity of Care Document ---
Author Organization [facility] Bert Anderson Joes lt Address [address] [place] [address]- Care Team Providers Care Upper And Bottom Lacer Hand Name Role Phone Darinel Turpin DO Primary Care Physician Encounter [facility] Date(s): 03/12/23 - 04/11/23 [facility] Bert Anderson Adult [address] [place] [address]- Allergies, Adverse Reactions, Alerts No Known Allergies Immunizations Given and Recorded Vaccine Date Status Refusal Reason pneumococcal 20-valent conjugate vaccine 1 03/11/23 Given [id number] 12y+ bivalent booster vax 02/05/22 Recorded SARS-CoV-2 [...] Recorded tetanus/diphtheria/pertussis, acel(Tdap) 02/22/15 Recorded 1Result Comment: [facility]# [id number] Medications hydrALAZINE 50 mg oral tablet 1 tablet = 50 mg, By Mouth, 2 times a day, # 180 tablet, 3 Refills, Maintenance, 03/11/23 13:25:00 EST, Tablet, [facility] #[id number], Partial fill upon patient request if the prescription is for a schedule II opioid drug., 165, cm, 03/11/23 12:... Start Date: 03/11/23 Status: Ordered lisinopril 40 mg oral tablet 1 tablet = 40 mg, By Mouth, Daily, # 90 tablet, 3 Refills, Maintenance, 03/11/23 13:26:00 EST, Tablet, [facility] #[id number], Partial fill upon patient request if the prescription is for a schedule II opioid drug., 165, cm, 03/11/23 12:53:00 EST... Start Date: 03/11/23 Status: Ordered memantine 5 mg oral tablet 1 tablet = 5 mg, By Mouth, 2 times a day, TAKE 1 TABLET BY MOUTH TWICE DAILY FOR 90 DAYS, # 180 tablet, 3 Refills, Maintenance, 03/11/23 13:24:00 EST, Tablet, [facility] #[id number], Partial fill upon patient request if the prescription is for a... Start Date: 03/11/23 Status: Ordered metoprolol 25 mg oral tablet, extended release 25 mg, 1, tablet, By Mouth, Daily, # 90 tablet, Refills 3, Tot. Refills 3, Maintenance, 03/11/23 13:27:00 EST, Route to Pharmacy Electronically, [facility] #[id number], Partial fill upon patientrequest if the prescription [...] Care Nurse Name: Olive Lim RN Position: [facility] RN Member Role: Primary Care Nurse Name: Le Sheriff NP Position: [facility] PCO Associate Professional Member Role: Primary Care Nurse Address: Address: [address] [place] [address]- [place] Name: Belkis Scanlon RN Position: [facility] RN Member Role: Primary Care Nurse Name: Iman Louis RN Position: [facility] RN Supv Member Role: Primary Care Nurse Name: Darinel Turpin DO Position: [facility] Physician - Primary Care Member Role: PCP Address: Address: [address] [place] [address] [place] [address]- [place] Name: Elijah Turpin RN Position: [facility] Dedicated Regional Driver Member Role: Primary Care Nurse Care Team Related Persons Name: CHERYL MONTES Address: home [address] [place] [address] Name: QUETA MONTES Address: [place] [address]
--- OUTSIDE RECORDS SUMMARY | 2023-12-15 11:32 | XMS_ITS | Patient Health Record ---
Author Organization [facility] Address [address] [facility] [address] [place] [address] Care Team Providers Care Scow Hand Name Role Phone Migration, Provider Unavailable Unavailable Reason For Referral No Information Encounters Encounter Location Date Provider Diagnosis [facility] [address] [place] [address] 03/28/2023 [facility] [address] [place] [address] 03/29/2023 Provider Migration Plan Of Treatment No Information
--- OUTSIDE RECORDS SUMMARY | 2023-12-15 11:32 | XMS_ITS | Continuity of Care Document ---
Author Organization [facility] Bert Anderson Jose lt Address [address] [place] [address]- Care Team Providers Care Fruit Packer Name Role Phone Darinel Turpin DO Primary Care Physician Encounter [facility] Date(s): 03/20/23 - 04/19/23 [facility] Bert Anderson Adult [address] [place] [address]- Allergies, Adverse Reactions, Alerts No Known Allergies Immunizations Given and Recorded Vaccine Date Status Refusal Reason pneumococcal 20-valent conjugate vaccine 1 03/11/23 Given [id number] 12y+ bivalent booster vax 02/05/22 Recorded SARS-CoV-2 [...] tetanus/diphtheria/pertussis, acel(Tdap) 02/22/15 Recorded 1Result Comment: [facility]# [id number] Medications hydrALAZINE 50 mg oral tablet 1 tablet = 50 mg, By Mouth, 2 times a day, # 180 tablet, 3 Refills, Maintenance, 03/11/23 13:25:00 EST, Tablet, [facility] #[id number], Partial fill upon patient request if the prescription is for a schedule II opioid drug., 165, cm, 03/11/23 12:... Start Date: 03/11/23 Status: Ordered lisinopril 40 mg oral tablet 1 tablet = 40 mg, By Mouth, Daily, # 90 tablet, 3 Refills, Maintenance, 03/11/23 13:26:00 EST, Tablet, [facility] #[id number], Partial fill upon patient request if the prescription is for a schedule II opioid drug., 165, cm, 03/11/23 12:53:00 EST... Start Date: 03/11/23 Status: Ordered memantine 5 mg oral tablet 1 tablet = 5 mg, By Mouth, 2 times a day, TAKE 1 TABLET BY MOUTH TWICE DAILY FOR 90 DAYS, # 180 tablet, 3 Refills, Maintenance, 03/11/23 13:24:00 EST, Tablet, [facility] #[id number], Partial fill upon patient request if the prescription is for a... Start Date: 03/11/23 Status: Ordered metoprolol 25 mg oral tablet, extended release 25 mg, 1, tablet, By Mouth, Daily, # 90 tablet, Refills 3, Tot. Refills 3, Maintenance, 03/11/23 13:27:00 EST, Route to Pharmacy Electronically, [facility] #[id number], Partial fill upon patientrequest if the prescription [...] Care Nurse Name: Olive Lim RN Position: [facility] RN Member Role: Primary Care Nurse Name: Le Sheriff NP Position: [facility] PCO Associate Professional Member Role: Primary Care Nurse Address: Address: [address] [place] [address]- [place] Name: Belkis Scanlon RN Position: [facility] RN Member Role: Primary Care Nurse Name: Iman Louis RN Position: [facility] RN Supv Member Role: Primary Care Nurse Name: Darinel Turpin DO Position: [facility] Physician - Primary Care Member Role: PCP Address: Address: [address] [place] [address] [place] [address]- [place] Name: Elijah Turpin RN Position: [facility] Audio/Video Engineer Member Role: Primary Care Nurse Care Team Related Persons Name: CHERYL MONTES Address: home [address] [place] [address] Name: QUETA MONTES Address: [place] [address]
--- OUTSIDE RECORDS SUMMARY | 2023-12-15 11:32 | XMS_ITS | Continuity of Care Document ---
Author Organization [facility] Bert Anderson Jose Address [address] [place] [address]- Care Team Providers Care Excel Analyst Name Role Phone Darinel Turpin DO Primary Care Physician Encounter [facility] Date(s): 05/27/23 - 06/03/23 [facility] Bert Anderson Adult [address] [place] [address]- Encounter Diagnosis Rhabdomyolysis(Discharge Diagnosis) - 05/27/23 Fall at home(Discharge Diagnosis) - 05/27/23 Atrial fibrillation and flutter(Discharge Diagnosis) - 05/27/23 Moderate dementia(Discharge Diagnosis) - 05/27/23 Essential hypertension(Discharge Diagnosis) - 05/27/23 Osteoarthritis of knees, bilateral(Discharge Diagnosis) - 05/27/23 Chronic sphenoidal sinusitis(Discharge Diagnosis) - 05/27/23 Attending Physician: Darinel Turpin DO Allergies, Adverse [...] influenza virus vaccine, inactivated 03/07/14 Isaak rded [id number] 12y+ bivalent booster vax 02/05/22 Recorded SARS-CoV-2 (COVID-19) mRNA BNT-162b2 vac 02/18/21 Recorded SARS-CoV-2 (COVID-19) mRNA BNT-162b2 vac 07/02/20 Recorded SARS-CoV-2 (COVID-19) mRNA BNT-162b2 vac 06/10/20 Recorded zoster vaccine, inactivated 04/29/19 Recorded zoster vaccine, inactivated 02/08/19 Recorded pneumococcal 13-valent vaccine 02/22/15 Recorded tetanus/diphtheria/pertussis, acel(Tdap) 02/22/15 Recorded 1Result Comment: [facility]# [id number] Medications hydrALAZINE 50 mg oral tablet 1 tablet = 50 mg, By Mouth, 2 times a day, # 180 tablet, 3 Refills, Maintenance, 03/11/23 13:25:00 EST, Tablet, [facility] #[id number], Partial fill upon patient request if the prescription is for a schedule II opioid drug., 165nacho, 03/11/23 12:... Start Date: 03/11/23 Status: Ordered lisinopril 40 mg oral tablet 1 tablet = 40 mg, By Mouth, Daily, # 90 tablet, 3 Refills, Maintenance, 05/27/23 16:38:00 EST, Tablet, [facility] #[id number], Partial fill upon patient request if the prescription is for a schedule II opioid drug., 165nacho, 05/27/23 16:30:00 EST... Start Date: 05/27/23 Status: Ordered memantine 5 mg oral tablet 1 tablet = 5 mg, By Mouth, 2 times a day, TAKE 1 TABLET BY MOUTH TWICE DAILY FOR 90 DAYS, # 180 tablet, 3 Refills, Maintenance, 03/11/23 13:24:00 EST, Tablet, [facility] #[id number], Partial fill upon patient request if the prescription is for a... Start Date: 03/11/23 Status: Ordered metoprolol 25 mg oral tablet, extended release 25 mg, 1, tablet, By Mouth, Daily, # 90 tablet, Refills 3, Tot. Refills 3, Maintenance, 05/27/23 16:38:00 EST, Route to Pharmacy Electronically, [facility] #[id number], Partial fill upon patientrequest if the prescription [...] Physical exam Confirmed Active Rhabdomyolysis Confirmed Active Diagnosis Diagnosis Type Effective Dates Health Status Clinical Service Informant Rhabdomyolysis Discharge Diagnosis 05/27/23 Fall at home Discharge Diagnosis 05/27/23 Atrial fibrillation and flutter Discharge Diagnosis 05/27/23 Moderate dementia Discharge Diagnosis 05/27/23 Essential hypertension Discharge Diagnosis 05/27/23 Osteoarthritis of knees, bilateral Discharge Diagnosis 05/27/23 Chronic sphenoidal sinusitis Discharge Diagnosis 05/27/23 Vital Signs Most recent to oldest [Reference Range]: 1 2 Height 165 cm (05/27/23 4:30 PM) 165 cm (05/27/23 4:10 PM) Weight 70.2 kg (05/27/23 4:10 PM) Oxygen Saturation [94-100 %] 96 % (05/27/23 4:10 PM) Pulse Rate [55-90 bpm] 63 bpm (05/27/23 4:10 PM) Body Mass Index [18.5-24.99 kg/m2] 25.79 kg/m2 *H* (05/27/23 4:10 PM) Blood Pressure [90-138/55-84 mm Hg] 138/ 68mm Hg (05/27/23 4:30 PM) 164/74mm Hg *H* (05/27/23 4:10 PM) Blood pressure sites Arm, right (05/27/23 4:30 PM) Arm, left (05/27/23 4:10 PM) Social History Social History Type Response Smoking Status Former smoker, quit more than 30 days ago; Other: quit 1984; entered on: 03/11/23 Sex Note * Talita Salmeron: PERFORM, SIGN, VERIFY Event Display: Patient Education/Instruction Authored Date: [id number] [facility] *EVERT So Justin Levy Clinical Summary Name HARRY MONTES Age 82 Years 1940 PCP Darinel Turpin DO PCP Visit Date 05/27/2023 15:39:00 Patient Instructions Pleat antibiotics Recommend??Flonase or Rhinocort 2 sprays each nostril daily BP at goal continue current plan??check BP at home and bring to next visit Recommend getting the updated COVID-vaccine and RSV vaccine at your local pharmacy Additional Instructions: Scheduled Appointments?? Future Appointments ?No Future Appointments Scheduled Follow-Up Instructions ?? Diagnosis Unspecified atrial fibrillation; Chronic sphenoidal sinusitis; Unspecified dementia, moderate, without behavioral disturbance, psychotic disturbance, mood disturbance, and anxiety; Essential (primary) hypertension; Bilateral primary osteoarthritis of knee; Unspecified fall, initial encounter; Rhabdomyolysis Medications: Please continue your medications until treatment is completed or stopped by your provider. Discuss any questions related to medications with your provider. Medications to Continue with No Changes These medications were not printed or sent to your pharmacy Amoxicillin (amoxicillin 500 mg oral capsule) 1 capsule Oral twice a day for 10 Days. Refills: 0. Next Dose: hydrALAZINE (hydrALAZINE 50 mg oral tablet) 1 tab(s) Oral twice a day. Refills: 3. Next Dose: Lisinopril (lisinopril 40 mg oral tablet) 1 tab(s) Oral Daily. Refills: 3. Next Dose: Memantine (memantine 5 mg oral tablet) 1 tab(s) Oral twice a day. TAKE 1 TABLET BY MOUTH TWICE DAILY FOR 90 DAYS. Refills: 3. Next Dose: Metoprolol (metoprolol 25 mg oral tablet, extended release) 1 tab(s) Oral Daily. Refills: 3. Next Dose: Allergy Info:?? NKA Medications Given This Visit Future Orders ?No future orders Vital Signs Height Weight BMI Blood Pressure / Temperature Pulse Rate Respiratory Rate 02 Sat Mode of Delivery / You can now view a summary of your hospital visit from the comfort of your home through a free online portal called [employer]. [employer] is a website that allows you to securely view your medical information including discharge summary, medications and follow-up visits. ??You can alsosend a secure electronic message to your doctor???s office to request appointments, renew medications or just ask a question. You can enroll at [email or web address] or register during your next office visit. [...] primary care provider, you may find a [facility] provider by calling [facility] [employer] Link at [phone]. [facility], in keeping with [facility] guidance, no longer requires face masks for [...] format to support your individualized medical care. Patient Care team information Care Team Personnel Name: Marleni Lizarraga RN Position: S RN Member Role: Primary Care Nurse Name: Trupti Maya RN Position: [facility] RN Member Role: Primary Care Nurse Name: Delaney Carmona RN Position: [facility] RN Member Role: Primary Care Nurse Name: Olive Lim RN Position: [facility] RN Member Role: Primary Care Nurse Name: Le Sheriff NP Position: [facility] PCO Associate Professional Member Role: Primary Care Nurse Address: Address: [address] [place] [address]- [place] Name: Belkis Scanlon RN Position: [facility] RN Member Role: Primary Care Nurse Name: Iman Louis RN Position: [facility] RN Supv Member Role: Primary Care Nurse Name: Darinel Turpin DO Position: [facility] Physician - Primary Care Member Role: PCP Address: Address: [address] [place] [address] [place] [address]- [place] Name: Elijah Turpin RN Position: [facility] Promotions Director Member Role: Primary Care Nurse Care Team Related Persons Name: CHERYL MONTES Address: home [address] [place] [address] Name: QUETA MONTES Address: [place] [address]
--- OUTSIDE RECORDS SUMMARY | 2023-12-15 11:32 | XMS_ITS ---
Author Organization [facility] Address [address] [facility] [address] [place] [address] Care Team Providers Care Ham Stripper Name Role Phone Migration, Provider Unavailable Unavailable REASON FOR VISIT EMR-Jabari Encounters Encounter Location Date Provider [facility] [address] [place] [address] 03/29/2023 Provider Migration Plan Of Treatment No Information Progress Notes * Kiki MONTES ADOB: [birth year] (83 yo F)Acc No.[id number]:03/29/2023 Patient:?DEBORAKiki :1940???Age:82 Y???Sex:Female Address:[address] [place] [address] [place], [address] Subjective: * Chief Complaints: * ???EMR-Jabari * Medical History:? * Surgical History:? * Hospitalization/Major Diagno stic Procedure:? * Medications:? Objective: * Vitals:? * Physical Examination:? Assessment: Plan: * Treatment: * Procedure Codes:? * * Date:?
--- OUTSIDE RECORDS SUMMARY | 2023-12-15 11:32 | XMS_ITS | Continuity of Care Document ---
Author Organization [facility] Justin Jose Address [address] [place] [address]- Care Team Providers Care Senior Analyst Name Role Phone Darinel Turpin DO Primary Care Physician [phone] Encounter [facility] Date(s): 05/25/23 - 06/24/23 [facility] Justin Adult [address] [place] [address]- Allergies, Adverse Reactions, Alerts No Known Allergies [...] influenza virus vaccine, inactivated 03/07/14 Isaak rded [id number] 12y+ bivalent booster vax 02/05/22 Recorded SARS-CoV-2 (COVID-19) mRNA BNT-162b2 vac 02/18/21 Recorded SARS-CoV-2 (COVID-19) mRNA BNT-162b2 vac 07/02/20 Recorded SARS-CoV-2 (COVID-19) mRNA BNT-162b2 vac 06/10/20 Recorded zoster vaccine, inactivated 04/29/19 Recorded zoster vaccine, inactivated 02/08/19 Recorded pneumococcal 13-valent vaccine 02/22/15 Recorded tetanus/diphtheria/pertussis, acel(Tdap) 02/22/15 Recorded 1Result Comment: [facility]# [id number] Medications hydrALAZINE 50 mg oral tablet 1 tablet = 50 mg, By Mouth, 2 times a day, # 180 tablet, 3 Refills, Maintenance, 03/11/23 13:25:00 EST, Tablet, [facility] #[id number], Partial fill upon patient request if the prescription is for a schedule II opioid drug., 165, cm, 03/11/23 12:... Start Date: 03/11/23 Status: Ordered lisinopril 40 mg oral tablet 1 tablet = 40 mg, By Mouth, Daily, # 90 tablet, 3 Refills, Maintenance, 05/27/23 16:38:00 EST, Tablet, [facility] #[id number], Partial fill upon patient request if the prescription is for a schedule II opioid drug., 165, cm, 05/27/23 16:30:00 EST... Start Date: 05/27/23 Status: Ordered memantine 5 mg oral tablet 1 tablet = 5 mg, By Mouth, 2 times a day, TAKE 1 TABLET BY MOUTH TWICE DAILY FOR 90 DAYS, # 180 tablet, 3 Refills, Maintenance, 03/11/23 13:24:00 EST, Tablet, [facility] #[id number], Partial fill upon patient request if the prescription is for a... Start Date: 03/11/23 Status: Ordered metoprolol 25 mg oral tablet, extended release 25 mg, 1, tablet, By Mouth, Daily, # 90 tablet, Refills 3, Tot. Refills 3, Maintenance, 05/27/23 16:38:00 EST, Route to Pharmacy Electronically, [facility] #[id number], Partial fill upon patientrequest if the prescription [...] Team Personnel Name: Marleni Lizarraga RN Position: [facility] RN Member Role: Primary Care Nurse Name: Le Acuña NP Position: [facility] PCO Associate Professional Member Role: Primary Care Nurse Address: Address: [address] [place] [address]- [place] Name: Trupti Maya RN Position: [facility] SN RN Member Role: Primary Care Nurse Name: Delaney Carmona RN Position: [facility] RN Member Role: Primary Care Nurse Name: Olive Lim RN Position: [facility] RN Member Role: Primary Care Nurse Name: Belkis Scanlon RN Position: [facility] RN Member Role: Primary Care Nurse Name: Iman Louis RN Position: [facility] RN Supv Member Role: Primary Care Nurse Name: Darinel Turpin DO Position: [facility] Physician - Primary Care Member Role: PCP Address: Address: [address] [facility] [place] [address]- Name: Elijah Turpin RN Position: [facility] Screwhead Polisher Member Role: Primary Care Nurse Care Team Related Persons Name: CHERYL MONTES Address: home [address] [place] [address] Name: QUETA MONTES Address: [place] [address]
--- OUTSIDE RECORDS SUMMARY | 2023-12-15 11:32 | XMS_ITS | Continuity of Care Document ---
Author Organization [facility] Justin Jose Address [address] [place] [address]- Care Team Providers Care Station Master Name Role Phone Darinel Turpin DO Primary Care Physician [place] [facility] [place]23 [place] 07[place]/23 [facility] Justin Adult [address] [place] [address]- Allergies, Adverse Reactions, Alerts No Known Allergies [...] influenza virus vaccine, inactivated 03/07/14 Isaak rded [id number] 12y+ bivalent booster vax 02/05/22 Recorded SARS-CoV-2 (COVID-19) mRNA BNT-162b2 vac 02/18/21 Recorded SARS-CoV-2 (COVID-19) mRNA BNT-162b2 vac 07/02/20 Recorded SARS-CoV-2 (COVID-19) mRNA BNT-162b2 vac 06/10/20 Recorded zoster vaccine, inactivated 04/29/19 Recorded zoster vaccine, inactivated 02/08/19 Recorded pneumococcal 13-valent vaccine 02/22/15 Recorded tetanus/diphtheria/pertussis, acel(Tdap) 02/22/15 Recorded 1Result Comment: [facility]# [id number] Medications hydrALAZINE 50 mg oral tablet 1 tablet = 50 mg, By Mouth, 2 times a day, # 180 tablet, 3 Refills, Maintenance, 03/11/23 13:25:00 EST, Tablet, [facility] #[id number], Partial fill upon patient request if the prescription is for a schedule II opioid drug., 165, cm, 03/11/23 12:... Start Date: 03/11/23 Status: Ordered lisinopril 40 mg oral tablet 1 tablet = 40 mg, By Mouth, Daily, # 90 tablet, 3 Refills, Maintenance, 05/27/23 16:38:00 EST, Tablet, [facility] #[id number], Partial fill upon patient request if the prescription is for a schedule II opioid drug., 165, cm, 05/27/23 16:30:00 EST... Start Date: 05/27/23 Status: Ordered memantine 5 mg oral tablet 1 tablet = 5 mg, By Mouth, 2 times a day, TAKE 1 TABLET BY MOUTH TWICE DAILY FOR 90 DAYS, # 180 tablet, 3 Refills, Maintenance, 03/11/23 13:24:00 EST, Tablet, [facility] #[id number], Partial fill upon patient request if the prescription is for a... Start Date: 03/11/23 Status: Ordered metoprolol 25 mg oral tablet, extended release 25 mg, 1, tablet, By Mouth, Daily, # 90 tablet, Refills 3, Tot. Refills 3, Maintenance, 05/27/23 16:38:00 EST, Route to Pharmacy Electronically, [facility] #[id number], Partial fill upon patientrequest if the prescription [...] Team Personnel Name: Marleni Lizarraga RN Position: [facility] RN Member Role: Primary Care Nurse Name: Le Acuña NP Position: [facility] PCO Associate Professional Member Role: Primary Care Nurse Address: Address: [address] [place] [address]- [place] Name: Trupti Maya RN Position: [facility] SN RN Member Role: Primary Care Nurse Name: Delaney Carmona RN Position: [facility] RN Member Role: Primary Care Nurse Name: Olive Lim RN Position: [facility] RN Member Role: Primary Care Nurse Name: Belkis Scanlon RN Position: [facility] RN Member Role: Primary Care Nurse Name: Iman Louis RN Position: [facility] RN Supv Member Role: Primary Care Nurse Name: Darinel Turpin DO Position: [facility] Physician - Primary Care Member Role: PCP Address: Address: [address] [facility] [place] [address]- Name: Elijah Turpin RN Position: [facility] Bilingual Customer Service Specialist Member Role: Primary Care Nurse Care Team Related Persons Name: CHERYL MONTES Address: home [address] [place] [address] Name: QUETA MONTES Address: [place] [address]
--- OUTSIDE RECORDS SUMMARY | 2023-12-15 11:32 | XMS_ITS ---
Author Organization [facility] Address [address] [facility] [address] [place] [address] Care Team Providers Care Hydrometeorological Technician Name Role Phone Migration, Provider Unavailable Unavailable REASON FOR VISIT EMR-Jabari Encounters Encounter Location Date Provider Diagnosis [facility] [address] [place] [address] 03/28/2023 Provider Migration Plan Of Treatment No Information Progress Notes * Kiki MONTES ADOB: [birth year] (83 yo F)Acc No.[id number]:03/28/2023 Patient:?DEBORAKiki :1940???Age:82 Y???Sex:Female Address:[address] [place] [address] [place], [address] Subjective: * Chief Complaints: * ???EMR-Jabari * Medical History:? * Surgical History:? * Hospitalization/Major Diagno stic Procedure:? * Medications:? Objective: * Vitals:? * Physical Examination:? Assessment: Plan: * Treatment: * Procedure Codes:? * * Date:?
--- OUTSIDE RECORDS SUMMARY | 2023-12-15 11:32 | XMS_ITS | Continuity of Care Document ---
Author Organization [facility] Bert Anderson Jose Address [address] [place] [address]- Care Team Providers Care Mess Attendant Name Role Phone Darinel Turpin DO Primary Care Physician Encounter [facility] Date(s): 07/15/23 - 08/14/23 [facility] Bert Anderson Adult [address] [place] [address]- Allergies, Adverse Reactions, Alerts No Known Allergies [...] influenza virus vaccine, inactivated 03/07/14 Isaak rded [id number] 12y+ bivalent booster vax 02/05/22 Recorded SARS-CoV-2 (COVID-19) mRNA BNT-162b2 vac 02/18/21 Recorded SARS-CoV-2 (COVID-19) mRNA BNT-162b2 vac 07/02/20 Recorded SARS-CoV-2 (COVID-19) mRNA BNT-162b2 vac 06/10/20 Recorded zoster vaccine, inactivated 04/29/19 Recorded zoster vaccine, inactivated 02/08/19 Recorded pneumococcal 13-valent vaccine 02/22/15 Recorded tetanus/diphtheria/pertussis, acel(Tdap) 02/22/15 Recorded 1Result Comment: [facility]# [id number] Medications hydrALAZINE 50 mg oral tablet 1 tablet = 50 mg, By Mouth, 2 times a day, # 180 tablet, 3 Refills, Maintenance, 03/11/23 13:25:00 EST, Tablet, [facility] #[id number], Partial fill upon patient request if the prescription is for a schedule II opioid drug., 165, cm, 03/11/23 12:... Start Date: 03/11/23 Status: Ordered lisinopril 40 mg oral tablet 1 tablet = 40 mg, By Mouth, Daily, # 90 tablet, 3 Refills, Maintenance, 05/27/23 16:38:00 EST, Tablet, [facility] #[id number], Partial fill upon patient request if the prescription is for a schedule II opioid drug., 165, cm, 05/27/23 16:30:00 EST... Start Date: 05/27/23 Status: Ordered memantine 5 mg oral tablet 1 tablet = 5 mg, By Mouth, 2 times a day, TAKE 1 TABLET BY MOUTH TWICE DAILY FOR 90 DAYS, # 180 tablet, 3 Refills, Maintenance, 03/11/23 13:24:00 EST, Tablet, [facility] #[id number], Partial fill upon patient request if the prescription is for a... Start Date: 03/11/23 Status: Ordered metoprolol 25 mg oral tablet, extended release 25 mg, 1, tablet, By Mouth, Daily, # 90 tablet, Refills 3, Tot. Refills 3, Maintenance, 05/27/23 16:38:00 EST, Route to Pharmacy Electronically, [facility] #[id number], Partial fill upon patientrequest if the prescription [...] Care Nurse Name: Le Acuña NP Position: [facility] PCO Associate Professional Member Role: Primary Care Nurse Address: Address: [address] [place] [address]- [place] Name: Trupti Maya RN Position: [facility] SN RN Member Role: Primary Care Nurse Name: Delaney Carmona RN Position: [facility] RN Member Role: Primary Care Nurse Name: Olive Lim RN Position: [facility] RN Member Role: Primary Care Nurse Name: Belkis Scanlon RN Position: [facility] RN Member Role: Primary Care Nurse Name: Iman Louis RN Position: [facility] RN Supv Member Role: Primary Care Nurse Name: Darinel Turpin DO Position: [facility] Physician - Primary Care Member Role: PCP Address: Address: [address] [place] [address]- Name: Elijah Turpin RN Position: [facility] Apartment Maintenance Member Role: Primary Care Nurse Care Team Related Persons Name: CHERYL MONTES Address: [address] [place] [address] Name: QUETA MONTES Address: [place] [address]
--- OUTSIDE RECORDS SUMMARY | 2023-12-15 11:32 | XMS_ITS | Continuity of Care Document ---
Author Organization [facility] Bert Anderson Jose Address [address] [place] [address]- Care Team Providers Care Stacker Attendant Name Role Phone Alex Ortiz MD Primary Care Physician Encounter [facility] [place] Date(s[place] 12/11/22 - 01/10/23 [facility] Bert Anderson Adult [address] [place] [address]- Allergies, Adverse Reactions, Alerts No Known Allergies [...] Confirmation Course Effective Dates Status Health St at Informant Hypertension Confirmed Active Patient Care team information Care Team Personnel Name: Marleni Lizarraga RN Position: [facility] RN Member Role: Primary Care Nurse Name: Alex Ortiz MD Position: [facility] Physician - Primary Care Member Role: PCP Address: Address: [address] [place] [address]- Name: Trupti Maya RN Position: [facility] SN RN Member Role: Primary Care Nurse Name: Delaney Carmona RN Position: [facility] RN Member Role: Primary Care Nurse Name: Olive Lim RN Position: [facility] RN Member Role: Primary Care Nurse Name: Le Sheriff NP Position: [facility] PCO Associate Professional Member Role: Primary Care Nurse Address: Address: [address] [place] [address]- Name: Belkis Scanlon RN Position: [facility] RN Member Role: Primary Care Nurse Name: Iman Louis RN Position: [facility] RN Supv Member Role: Primary Care Nurse Name: Elijah Turpin RN Position: [facility] Hospital Hash Slinger Member Role: Primary Care Nurse Care Team Related Persons Name: CHERYL MONTES Address: [address] [place] [address] Name: QUETA MONTES Address: [place] [address]
[2023-12-15 11:39] LABS: COVID-19 Test Positive (Negative); IDNOW Serial# 152EDE1D
[2023-12-15 11:42] LABS: Bacteria Urine 2+ (None Seen); Hyaline Casts Urine 0-2 /LPF (0-2); RBC Urine 0-2 /HPF (0-2); Squamous Epithelial Cell Urine >20 /HPF (0-2); UACC Culture Trigger YES; WBC Clumps Urine Present; WBC Urine >50 /HPF (0-5)
[2023-12-15 11:53] LABS: MANUAL DIFF FLAG NO
[2023-12-15 11:57] LABS: Basophils Absolute Auto 0.1 X10*3/uL (0.0-0.2); Basophils Percent Auto 1.7 % (0-2); Hematocrit 34.9 % (37.0-47.0); Imm Gran Abs Auto 0.01 X10*3/uL (0.00-0.03); Imm Gran Pct Auto 0.2 % (0.0-0.4); Lymphocytes Absolute Auto 0.5 X10*3/uL (1.2-4.9); Lymphocytes Percent Auto 11.3 % (20-40); Mean Corpuscular HGB Conc 34.4 g/dl (31.0-35.0); Mean Corpuscular Hemoglobin 31.1 pg (27.0-33.0); Mean Corpuscular Volume 90.4 fL (80.0-98.0); Mean Platelet Volume 10.6 fL (9.4-12.3); Monocytes Absolute Auto 0.9 X10*3/uL (0.1-1.2); Monocytes Percent Auto 19.5 % (2-11); Neutrophils Absolute Auto 3.2 x10*3/uL (2.0-8.3); Neutrophils Percent Auto 67.3 % (45-73); Platelet Count 201 X10*3/uL (160-400); Red Blood Count 3.86 X10*6/uL (4.20-5.50); Red Cell Distribution Width 14.6 % (11.0-16.0); White Blood Count 4.8 X10*3/uL (4.8-10.8)
[2023-12-15 12:18] LABS: Alanine Aminotransferase 15 U/L (0-31); Albumin Level 3.4 g/dL (3.5-5.0); Alkaline Phosphatase 81 U/L (39-117); Anion Gap 10 (12-20); Aspartate Amino Transferase 28 U/L (5-31); Bilirubin Direct 0.2 mg/dL (0.0-0.5); Bilirubin Total 0.5 mg/dL (0.0-1.0); Blood Urea Nitrogen 11 mg/dL (9-16); Calcium 8.4 mg/dL (8.4-10.2); Carbon Dioxide 22 mmol/L (22-29); Chloride 99 mmol/L (96-108); Creatinine Clr Calc Pharmacy 56.6; Estimated Glomerular Filt Rate > 60; Glucose Random 91 mg/dL (60-115); Magnesium 1.7 mg/dL (1.6-2.6); Potassium 3.8 mmol/L (3.3-5.1); Sodium 127 mmol/L (135-145); Total Protein 6.6 g/dL (6.5-8.0)
--- NOTE | 2023-12-15 12:43 | ED.FEMALEGU ---
HPI - Female Genitourinary General Chief complaint: Urogenital-Female Stated complaint: WEAK,FOUL/CLOUDY URINE,H/O FREQ UTI,FROM SKILLED NURSING Time Seen by Provider: 12/15/23 12:34 Source: patient, family (Daughter), EMS and old records reviewed Mode of arrival: EMS Limitations: altered mental status (Dementia) History of Present Illness ED Provider: DR. Hagan HPI Narrative: 83-year-old female PMH significant for unspecified dementia, HTN, HLD, paroxysmal AFib no anticoagulation, UTIs, lives at an assisted living, presented with her daughter for evaluation of generalized weakness, feeling dizzy when she walks, not eating or drinking since 17:00 yesterday. Patient is a poor historian unable to provide history history was obtained from daughter at the bedside. Related Data Home Medications ?Medication ?Instructions ?Recorded ?Confirmed hydralazine 50 mg tablet 50 mg PO BID 02/10/22 05/14/23 lisinopril 20 mg tablet 20 mg PO BID 02/10/22 05/14/23 memantine 5 mg tablet 5 mg PO BID 02/10/22 05/14/23 metoprolol succinate 25 mg 25 mg PO DAILY 02/10/22 05/14/23 tablet,extended release 24 hr aspirin 81 mg chewable tablet 81 mg PO DAILY 05/14/23 05/14/23 nitrofurantoin 1 cap PO BID 12/15/23 monohydrate/macrocrystals 100 mg capsule Allergies Allergy/AdvReac Type Severity Reaction Status Date / Time cephalexin Allergy Unknown Verified 12/15/23 11:11 hydrochlorothiazide Allergy Unknown Verified 12/15/23 11:11 Sulfa (Sulfonamide Allergy Unknown Verified 12/15/23 11:11 Antibiotics) trimethoprim Allergy Unknown Verified 12/15/23 11:11 Review of Systems Review of Systems: Yes Unobtainable due to mental status PMFSH Past Medical History Medical History Paroxysmal A-fib HTN (hypertension) HLD (hyperlipidemia) Dementia, unspecified, without behavioral disturbance Social History Social History Household Members: Other Housing: Assisted Living Facility Do you presently have visiting nurse or other home services: No Alcohol intake: former Patient Tobacco Use Status: Former Tobacco user Tobacco use type: Cigarette Years Smoked: 10 Smoked in Last 30 Days: No Second Hand Smoke Exposure: No Use of substances other than those prescribed or required for medical reasons: No Advance Directives: Yes Advance Directives on File: Yes Advance Directives Date on File: 05/18/23 service: No Physical Exam Vital Signs: Vital Signs: Last Vital Signs Temp 99.4 F 12/15/23 13:00 Pulse 47 L 12/15/23 13:00 Resp 17 12/15/23 13:00 BP 137/50 L 12/15/23 13:00 Pulse Ox 96 12/15/23 13:00 O2 Del Method Room Air 12/15/23 13:00 BMI result Body Mass Index 24.6 Vital signs have been reviewed and appear to be correct. Blood pressure elevated. Bradycardia. Respiratory rate normal. Temperature normal. Oxygen saturation normal. Appearance: Alert, confused, No acute distress. Head: Normal external exam. Normocephalic. Atraumatic. No Cobb signs noted. No raccoon eyes noted Eyes: PERRLA. EOMI. Conjunctiva and sclera normal. Eyelids normal. ENT: TM's Normal. Pharynx normal. Uvula midline. Moist mucous membranes. No trismus noted. No drooling noted. No muffled voice noted. Neck: Normal inspection. Neck supple. FROM. No adenopathy. Thyroid Normal. No meningeal signs. No neck mass noted. CVS: Bradycardic Heart sound normal. No murmurs noted. Pulses normal throughout. Respiratory: No respiratory distress. Painless inspiration. Breath sounds normal. No wheezes/rales/rhonchi noted. Chest nontender. No accessory muscle usage noted or decreased air movement noted. Abdomen: Soft and nontender. Bowel sounds normal in all 4 quadrants. No distention noted. No organomegaly noted. No visible injury noted. Back: No CVA tenderness. Full range of motion noted. Skin: Skin warm and dry. Normal skin color. Normal skin turgor. No rashes/lesions/lacerations noted. Extremities: No lower extremity edema. Extremities exhibit normal range of motion. Extremities nontender. Neuro: Cranial nerve exam: II-XII are grossly intact No motor deficit. No sensory deficit. Reflexes normal. Course Reevaluation(s) Reevaluation #1: 83-year-old female from assisted living presented for evaluation of generalized weakness. 1. COVID positive supportive measures, isolation. 2. Hyponatremia due to hypovolemia and decreased p.o. intake will start on gentle normal saline hydration. 3. UTI with no sepsis will start on ceftriaxone, history indicates allergies to cephalexin unclear symptoms will monitor the patient with ceftriaxone. 4. Sinus bradycardia appeared to be old when compared to old EKG patient is hemodynamically stable at this point, will get inpatient cardiology consult. 5. Admit. Time: 12:49 Medications Administered Discontinued Medications Generic Name Dose Route Start Last Admin Trade Name Freq PRN Reason Stop Dose Admin Sodium Chloride 1,000 mls @ 999 mls/hr 12/15/23 12:34 12/15/23 13:22 Ns IV 12/15/23 13:34 999 mls/hr .Q1H1M ONE Administration Ceftriaxone Sodium 1 gm/ 50 mls @ 100 mls/hr 12/15/23 12:34 12/15/23 13:22 Sodium Chloride IV 12/15/23 13:03 100 mls/hr ONCE ONE Administration Medical Decision Making Differential Diagnosis Differential Diagnoses: The differential diagnosis associated with the presentation includes (Viral infection, dehydration, electrolyte derangement, UTI, pneumonia, bradycardia) Admission/Observation Consideration of admission/observation: Escalation of care including admission/observation considered Consult Healthcare Provider Management of the patient was discussed with: Hospitalist (Dr. Hebert) Lab Data MDM Lab Attestation statement: I reviewed the patient's lab results. 12/15/23 11:47 12/15/23 11:47 Labs: Lab Results 12/15/23 12/15/23 Range/Units 11:23 11:47 WBC 4.8 (4.8-10.8) X10*3/uL RBC 3.86 L (4.20-5.50) X10*6/uL Hgb 12.0 (12.0-16.0) g/dl Hct 34.9 L (37.0-47.0) % MCV 90.4 (80.0-98.0) fL MCH 31.1 (27.0-33.0) pg MCHC 34.4 (31.0-35.0) g/dl RDW 14.6 (11.0-16.0) % Plt Count 201 (160-400) X10*3/uL MPV 10.6 (9.4-12.3) fL Immature Gran % (Auto) 0.2 (0.0-0.4) % Neut % (Auto) 67.3 (45-73) % Lymph % (Auto) 11.3 L (20-40) % Wheeler % (Auto) 19.5 H (2-11) % Eos % (Auto) 0.0 (0-4) % Baso % (Auto) 1.7 (0-2) % Lymph # (Auto) 0.5 L (1.2-4.9) X10*3/uL Wheeler # (Auto) 0.9 (0.1-1.2) X10*3/uL Eos # (Auto) 0.0 (0.0-0.4) X10*3/uL Baso # (Auto) 0.1 (0.0-0.2) X10*3/uL Abs Immat Gran (auto) 0.01 (0.00-0.03) X10*3/uL Absolute Neuts (auto) 3.2 (2.0-8.3) x10*3/uL Absolute Nucleated RBC 0.000 (0.0-0.012) X10*3/uL Nucleated RBC % (auto) 0.0 (0.0-0.2) /100WBC Sodium 127 L (135-145) mmol/L Potassium 3.8 (3.3-5.1) mmol/L Chloride 99 (96-108) mmol/L Carbon Dioxide 22 (22-29) mmol/L Anion Gap 10 L (12-20) BUN 11 (9-16) mg/dL Creatinine 0.68 (0.5-1.4) mg/dL Estim Creat Clear Calc 56.6 Estimated GFR > 60 Random Glucose 91 (60-115) mg/dL Calcium 8.4 (8.4-10.2) mg/dL Magnesium 1.7 (1.6-2.6) mg/dL Total Bilirubin 0.5 (0.0-1.0) mg/dL Direct Bilirubin 0.2 (0.0-0.5) mg/dL AST 28 (5-31) U/L ALT 15 (0-31) U/L Alkaline Phosphatase 81 (39-117) U/L Total Protein 6.6 (6.5-8.0) g/dL Albumin 3.4 L (3.5-5.0) g/dL Urine Color Yellow Urine Appearance Turbid Urine pH 6.5 (5.0-9.0) Ur Specific [place] 1.015 (1.005-1.025) Urine Protein 30 (1+) H (Neg-Trace) mg/dL Urine Glucose (UA) Negative (Negative) mg/dL Urine Ketones Negative (Negative) mg/dL Urine Blood Negative (Negative) Urine Nitrite Positive H (Negative) Ur Leukocyte Esterase Large (3+) H (Negative) Urine RBC 0-2 (0-2) /HPF Urine WBC >50 H (0-5) /HPF Urine WBC Clumps Present Ur Squamous Epith Cells >20 (0-2) /HPF Urine Bacteria 2+ (None Seen) Hyaline Casts 0-2 (0-2) /LPF COVID-19 (MAR) Positive A (Negative) COVID-19 Clin Com See Note Independent Interpretation I performed an independent interpretation of an: EKG (Sinus bradycardia at 47 beats per minutes, normal intervals, no ST-T changes.) and Plain X-Ray Radiology Impression Discussion of test interpretation with radiology: I have reviewed the radiologist's reading. Discharge Plan Discharge Clinical Impression: Urinary tract infection, COVID-19, Bradycardia, Hyponatremia Patient Disposition: Admitted As Inpatient
[2023-12-15] MEDS: cefTRIAXone sodium 1 GM in 0.9 % Sodium Chloride 50 ML IV (13:22)
[2023-12-15] MEDS: 0.9 % Sodium Chloride 1,000 ML 999 ML IV (13:22)
--- NOTE | 2023-12-15 13:47 | PM.IMHP ---
History of Present Illness Date of Service: 12/15/23 [facility] Chief Complaint: malaise 83-year-old female with history of paroxysmal atrial fibrillation not on anticoagulation, hypertension, hyperlipidemia, unspecified dementia presented to the ED earlier today from assisted living facility due to general malaise, weakness, exertional lightheadedness and dyspnea on exertion. She has also had decreased p.o. intake. Denies fevers, chills, congestion, sore throat, abdominal pain, nausea, vomiting, diarrhea, dysuria, hematuria, increased urinary frequency/urgency, cough, shortness of breath at rest, orthopnea, PND, wheezing, chest pain. Denies any known sick contacts. Since arrival, blood pressure stable but noted to be bradycardic in the high 40s, vitals otherwise stable. No leukocytosis. Renal function baseline, electrolyte levels normal except for sodium of 127. Urinalysis with 3+ leukocytes, positive nitrites, negative blood, 1+ protein, positive urinary sediment, 2+ bacteria. She is positive for COVID-19. Chest x-ray pending. EKG shows sinus bradycardia, rate 47 without any noted AV gil blocks or acute ischemic changes. In the ED has received 1 g IV ceftriaxone and 1 L IV NS. Review of Systems Review of Systems: Yes all other systems are reviewed and are negative [facility] Medical History Paroxysmal A-fib HTN (hypertension) HLD (hyperlipidemia) Dementia, unspecified, without behavioral disturbance Social History Household Members: Other Housing: Assisted Living Facility Do you presently have visiting nurse or other home services: No Alcohol intake: former Patient Tobacco Use Status: Former Tobacco user Tobacco use type: Cigarette Years Smoked: 10 Smoked in Last 30 Days: No Second Hand Smoke Exposure: No Use of substances other than those prescribed or required for medical reasons: No Advance Directives: Yes Advance Directives on File: Yes Advance Directives Date on File: 05/18/23 service: No Meds Allergies Allergy/AdvReac Type Severity Reaction Status Date / Time cephalexin Allergy Unknown Verified 12/15/23 11:11 hydrochlorothiazide Allergy Unknown Verified 12/15/23 11:11 Sulfa (Sulfonamide Allergy Unknown Verified 12/15/23 11:11 Antibiotics) trimethoprim Allergy Unknown Verified 12/15/23 11:11 Home Medications ?Medication ?Instructions ?Recorded ?Confirmed ?Last Taken ?Type hydralazine 50 mg tablet 50 mg PO BID 02/10/22 05/14/23 05/13/23 History lisinopril 20 mg tablet 20 mg PO BID 02/10/22 05/14/23 05/13/23 History memantine 5 mg tablet 5 mg PO BID 02/10/22 05/14/23 05/13/23 History metoprolol succinate 25 mg 25 mg PO DAILY 02/10/22 05/14/23 05/13/23 History tablet,extended release 24 hr aspirin 81 mg chewable tablet 81 mg PO DAILY 05/14/23 05/14/23 05/13/23 History nitrofurantoin 1 cap PO BID 12/15/23 Unknown History monohydrate/macrocrystals 100 mg capsule Physical Exam Vital Signs and Narrative: Vital Signs: Last Vital Signs Temp 99.4 F 12/15/23 13:00 Pulse 47 L 12/15/23 13:00 Resp 17 12/15/23 13:00 BP 137/50 L 12/15/23 13:00 Pulse Ox 96 12/15/23 13:00 O2 Del Method Room Air 12/15/23 13:00 BMI result Body Mass Index 24.6 Constitutional - Awake and Alert, weak appearing, No apparent distress Eyes - PERRLA, EOMI Cardiovascular - S1S2, RRR, IV/ pansystolic murmur. No edema Respiratory - Normal lung expansion, Normal respiratory effort, No respiratory distress, CTA bilaterally Gastrointestinal - NT / ND; +BS; No rebound or guarding Extremities - no calf tenderness bilaterally, no swelling Skin - Warm/Dry Neurological - Alert & oriented x3 Psychological - Appropriate affect Results Labs 12/15/23 11:47 12/15/23 11:47 Labs: Laboratory Results - last 24 hr 12/15/23 12/15/23 11:23 11:47 MCV 90.4 MCH 31.1 MCHC 34.4 RDW 14.6 Plt Count 201 MPV 10.6 Immature Gran % (Auto) 0.2 Neut % (Auto) 67.3 Lymph % (Auto) 11.3 L [place] % (Auto) 19.5 H Eos % (Auto) 0.0 Baso % (Auto) 1.7 Lymph # (Auto) 0.5 L [place] # (Auto) 0.9 Eos # (Auto) 0.0 Baso # (Auto) 0.1 Abs Immat Gran (auto) 0.01 Absolute Neuts (auto) 3.2 Absolute Nucleated RBC 0.000 Nucleated RBC % (auto) 0.0 Anion Gap 10 L Estim Creat Clear Calc 56.6 Estimated GFR > 60 Random Glucose 91 Calcium 8.4 Magnesium 1.7 Total Bilirubin 0.5 Direct Bilirubin 0.2 AST 28 ALT 15 Alkaline Phosphatase 81 Total Protein 6.6 Albumin 3.4 L Urine Color Yellow Urine Appearance Turbid Urine pH 6.5 Ur Specific [place] 1.015 Urine Protein 30 (1+) H Urine Glucose (UA) Negative Urine Ketones Negative Urine Blood Negative Urine Nitrite Positive H Ur Leukocyte Esterase Large (3+) H Urine RBC 0-2 Urine WBC >50 H Urine WBC Clumps Present Ur Squamous Epith Cells >20 Urine Bacteria 2+ Hyaline Casts 0-2 COVID-19 (MAR) Positive A COVID-19 Clin Com See Note Assessment and Plan (1) Hyponatremia: Status: Acute (2) Bradycardia: Status: Acute (3) COVID-19: Status: Acute (4) Urinary tract infection: Status: Acute Plan 83-year-old female with history of paroxysmal atrial fibrillation not on anticoagulation, hypertension, hyperlipidemia, unspecified dementia admitted for further management of COVID-19 with acute UTI and generalized weakness as well as symptomatic bradycardia #COVID-19 infection -No hypoxia, no indication for steroids or antiviral therapy -symptomatic management -airborne/contact precautions #Acute UTI -IV ctx (initiated 01/01) -NO leukocytosis, sepsis -Follow cultures #Acute hyponatremia -likely hypoosmolar from poor po intake -urine studies pending -continue ivf -follow lytes #Generalized weakness -pt eval, r/t above #Symptomatic bradycardia -with ?severe . BP stable, asymptomatic at rest but reports MICHAEL and lightheadedness with exertion -ekg without any av gil blocks, no pauses noted -echo ordered -cardiology consult -monitor on tele #?Severe -echo ordered -cardiology consult #Paroxysmal atrial fibrillation- rate as above -not on ac -hold bb #HTN -hold bb as above. Continue lisinopril, hydralazine DVT prophylaxis- lovenox full code pt requires inpt stay at least 2 midnights for management of acute hyponatremia with symptomatic bradycardia and ?severe as requiring cardiac monitoring expert consultation, ivf, and echo Quality Stroke Does the patient have a stroke diagnosis?: No VTE Prior VTE?: No VTE Risk Level:: Medical - moderate - high VTE Device Contraindication: Treatment Not Indicated VTE Drug Contraindication: N/A - Med Ordered
[2023-12-15] MEDS: 0.9 % Sodium Chloride 1,000 ML 100 ML IVCONT (14:28)
[2023-12-15] MEDS: Enoxaparin Sodium 40 MG/0.4 ML SYRINGE SUBCUT (14:29)
--- NOTE | 2023-12-15 14:30 | PHA.MEDREC ---
Addendum entered by Alonzo Ronquillo RPh 12/15/23 14:41: [facility] Reviewed Original Note: Pharmacy Consult ? Medication Reconciliation Pharmacy has completed the medication reconciliation. Confirmed medications with list provided by patient senior living and patient Daughter at bedside.
[2023-12-15 14:48] LABS: Osmolality Urine 485 mosm/kg (373-1093)
[2023-12-15 14:49] LABS: Osmolality, Serum 264 mosm/kg (281-305)
--- NOTE | 2023-12-15 18:48 | PC.NURSE ---
patient IV came out, 20# placed in the right wrist. fluids continued.
[2023-12-15] MEDS: hydrALAZINE HCl 50 MG TABLET PO (20:28)
[2023-12-15] MEDS: Memantine HCl 5 MG TABLET PO (20:29)
--- NOTE | 2023-12-15 20:45 | PC.NURSE ---
pt medicated per jul. tolerated po intake. pt resting comfortably at this time, vitals as documented. report given to [facility] fabrizio mederos, awaiting transport to floor. call sabillon within reach.
[2023-12-16] VITALS (8 sets, daily range): BP systolic 134–160; BP diastolic 60–75; PULSE 50–73; RESP 16–20; TEMP 36.1–37.1; O2SAT 92–97
[2023-12-16] MEDS: 0.9 % Sodium Chloride 1,000 ML 100 ML IVCONT (06:34)
[2023-12-16] MEDS: 0.9 % Sodium Chloride Flush 3 ML SYRINGE IVFLUSH ×3 (06:36→16:38)
[2023-12-16 06:43] LABS: MANUAL DIFF FLAG NO
[2023-12-16 06:55] LABS: Basophils Absolute Auto 0.1 X10*3/uL (0.0-0.2); Basophils Percent Auto 1.5 % (0-2); Eosinophils Percent Auto 0.2 % (0-4); Imm Gran Abs Auto 0.01 X10*3/uL (0.00-0.03); Imm Gran Pct Auto 0.2 % (0.0-0.4); Lymphocytes Absolute Auto 0.7 X10*3/uL (1.2-4.9); Lymphocytes Percent Auto 13.9 % (20-40); Mean Corpuscular HGB Conc 35.3 g/dl (31.0-35.0); Mean Corpuscular Hemoglobin 31.3 pg (27.0-33.0); Mean Corpuscular Volume 88.5 fL (80.0-98.0); Mean Platelet Volume 11.2 fL (9.4-12.3); Monocytes Absolute Auto 0.9 X10*3/uL (0.1-1.2); Monocytes Percent Auto 18.3 % (2-11); Neutrophils Absolute Auto 3.1 x10*3/uL (2.0-8.3); Neutrophils Percent Auto 65.9 % (45-73); Platelet Count 196 X10*3/uL (160-400); Red Blood Count 3.84 X10*6/uL (4.20-5.50); Red Cell Distribution Width 14.2 % (11.0-16.0); White Blood Count 4.7 X10*3/uL (4.8-10.8)
--- NOTE | 2023-12-16 07:00 | CA_ITS ---
Transthoracic Echocardiogram Patient (Last, First, Middle): Kiki Cazares Ann Gender: Female Date of : 1940 Age: 83 Procedure Date: 12/16/2023 Procedure Type: Transthoracic Echocardiogram Location: [facility] Height: 167.64 cm Weight: 68.95 kg BSA: 1.78 m2 Heart Rate: bpm BP: 142 / 67 mmHg Garnetter: TO Referring MD: Mikala ODONNELL Symptoms: bradycardia, ?severe Study Quality: Fair ECG Rhythm: Sinus Conclusions: - The left ventricular systolic function is normal. The calculated ejection fraction is 59% by biplane method. - Evidence suggests grade II (moderate) diastolic dysfunction. - There is moderate aortic valve stenosis. Findings Left Ventricle Normal left ventricular cavity size. There is normal left ventricular wall thickness. The left ventricular systolic function is normal. The calculated ejection fraction is 59% by biplane method. There is no evidence of regional wall motion abnormalities. Evidence suggests grade II (moderate) diastolic dysfunction. Right Ventricle Normal right ventricular cavity size and systolic function. Atria The left atrium is mildly dilated. The right atrium is normal in size. Aortic Valve There is moderate calcification of the aortic valve. There is moderate aortic valve stenosis. The peak aortic velocity is 2.85 m/s with a calculated peak gradient of 32 mmHg. The mean gradient is 20 mmHg. The aortic valve area is 1.08 cm2. There is mild aortic valve regurgitation. Mitral Valve There is moderate posterior mitral annular calcification. There is trace mitral valve regurgitation. There is no mitral valve stenosis. Pulmonic Valve The pulmonic valve is likely normal. Tricuspid Valve There is mild tricuspid valve regurgitation. There is no evidence of pulmonary hypertension. Great Vessels The asc aorta is normal in size. Venous The inferior vena cava is mildly dilated and collapses greater than 50% with inspiration. Pericardium/Pleural There is a small loculated pericardial effusion overlying the left ventricle. Prior Study Comparison Changes noted compared to prior study dated: 09/14/2001. Aortic stenosis present. Measurements 2D Linear Measurements IVSd: 0.99 0.6-0.9/0.6-1.0 cm LVIDd: 5.33 3.9-5.3/4.2-5.9 cm LVIDd Index: 2.99 2.4-3.2/2.2-3.1 cm/m2 LVIDs: 3.32 2.0-3.6 cm LVPWd: 0.88 0.7-1.1 cm LA Diam: 3.90 2.7-3.8/3.0-4.0 cm LAIDs Index: 2.19 1.5-2.3 cm/m2 LV Mass: 231.35 67-162/88-224 g LV Mass Index: 129.97 43-95/49-115 g/m2 LVOT Diam: 2.00 3.0+(-)1.3 cm 2D Systolic Function EF 4C: 58.50 >55% EF 2C: 57.60 >55% EF BiP: 58.90 >55% Mitral Valve MV VTI: 0.42 MV Pk Huber: 1.06 MV Mn Huber: 0.55 MV Pk Grad: 4.00 MV Mn Grad: 1.00 MV Pk E: 1.06 MV PK A: 0.75 MV Decel Time: 257.00 E/A: 1.40 E'Lateral: 5.55 E'Medial: 4.24 E/E' Med: 25.00 E/E' Lat: 19.10 PHT: 75.00 MVA PHT: 2.93 MVA Continuity: 2.05 Decel [place]: 4.11 Aortic Valve AoV Pk Huber: 2.85 AoV Mn Huber: 2.17 AoV VTI: 0.80 AoV Pk Grad: 32.00 Aov Mn Grad: 20.00 CRAIG Cont.VTI: 1.08 LVOT LVOT Pk Huber: 1.17 LVOT Mn Huber: 0.75 LVOT VTI: 0.28 LVOT Pk Grad: 5.00 LVOT Mn Grad: 3.00 LVOT Diam: 2.00 LVOT Area: 3.14 Diastolic Function MV Pk E: 1.06 MV Pk A: 0.75 E/A: 1.40 E'Medial: 4.24 E/E' Med: 25.00 E' Laterial: 5.55 E/E' Lat: 19.10 Right Ventricle TAPSE (mm): 22.80 TVS' Huber: 14.60 Tricuspid Valve TR Pk Huber: 2.52 TR Pk Grad: 25.00 RA Press: 8.00 RVSP: 33.00 Great Vessels Aorta Sinus of Valsalva: 3.46 2.0-3.5 cm Ao Asc: 3.70 2.1-3.4 cm Updated in Other Vendor System with Status of Final Mark Root MD electronically signed on 12/16/2023 3:06:28 PM with status of Final
[2023-12-16 07:03] LABS: Anion Gap 10 (12-20); Blood Urea Nitrogen 10 mg/dL (9-16); Carbon Dioxide 22 mmol/L (22-29); Chloride 99 mmol/L (96-108); Creatinine Clr Calc Pharmacy 64.1; Estimated Glomerular Filt Rate > 60; Glucose Random 92 mg/dL (60-115); Potassium 3.4 mmol/L (3.3-5.1); Sodium 128 mmol/L (135-145)
--- NOTE | 2023-12-16 07:04 | PC.NURSE ---
Patient arrived to the unit from the ED she is alert and oriented to self , she is confused and pleasant. Patient vitals obtained and documented . Covid precautions in place.Patient is on RA no respiratory distress, IV to R FA with fluids going per order. Patient skin is intact and fit for age she is turn and reposition in the bed. Patient has purewick in place, call sabillon present her night was uneventful. Bed alarm on please see [facility] for more details.
[2023-12-16] MEDS: lisinopriL 40 MG TABLET PO (09:23)
[2023-12-16] MEDS: hydrALAZINE HCl 50 MG TABLET PO ×2 (09:23→21:24)
[2023-12-16] MEDS: Memantine HCl 5 MG TABLET PO ×2 (09:23→21:24)
[2023-12-16] MEDS: cefTRIAXone sodium 1 GM in 0.9 % Sodium Chloride 50 ML IV (09:34)
--- NOTE | 2023-12-16 09:40 | PM.CNCAR ---
History of Present Illness History of Present Illness Date of Service: 12/16/23 Chief complaint: symptomatic bradycardia covid 19 uti Narrative: This is a cardiology consultation regarding bradycardia and possibility of aortic stenosis. Patient has dementia and admitted for various complaints including malaise, weakness, lightheadedness, shortness of breath. In this context, we are asked to evaluate. Patient herself seems fairly confused and not able to give much information. She states that she is 'living with her parents'. Can not give any further information. When specifically questioned about chest pain or shortness of breath or palpitations extra, she denies any of them. Review of Systems Review of Systems: Yes all other systems are reviewed and are negative Constitutional: Constitutional: Reports as per HPI and Reports no additional constitutional complaints Eyes: Eyes: Reports as per HPI and Denies no additional eye complaints ENT: Denies system reviewed and no additional complaints, except as documented and Reports as per HPI Cardiovascular: Cardiovascular: Reports as per HPI, Reports no additional cardiovascular complaints, Denies acrocyanosis, Denies cool extremities, Denies chest pain, Denies leg edema, Denies lightheadedness, Denies palpitations and Denies dyspnea Respiratory: Respiratory: Reports as per HPI, Denies no additional respiratory complaints and Denies dyspnea Gastrointestinal: Gastrointestinal: Reports as per HPI and Denies no additional gastrointestinal complaints Genitourinary: Genitourinary: Reports as per HPI Musculoskeletal: Musculoskeletal: Reports no additional musculoskeletal complaints and Reports as per HPI Integumentary/Breasts: Skin/Breast: Reports system reviewed and no additional complaints, except as docu Neurologic: Reports system reviewed and no additional complaints, except as documented and Reports as per HPI Psychiatric: Psychiatric: Reports no additional psychiatric complaints and Reports as per HPI Endocrine: Endocrine: Reports no additional endocrine complaints, Reports as per HPI and Denies palpitations Hematologic/Lymphatic: Hematologic/Lymphatic: Reports no additional hematologic/lymphatic complaints and Reports as per HPI Allergic/Immunologic: Allergic/Immunologic: Reports no additional allergic/immunologic complaints and Reports as per HPI [facility] Past Medical History Medical History (Updated 12/16/23 @ 09:43 by Mark Root MD) Paroxysmal A-fib HTN (hypertension) HLD (hyperlipidemia) Dementia, unspecified, without behavioral disturbance Family History Pertinent family history: Not able to get information from patient. Social History Social History Household Members: Other Housing: Assisted Living Facility Do you presently have visiting nurse or other home services: No Alcohol intake: former Patient Tobacco Use Status: Former Tobacco user Tobacco use type: Cigarette Years Smoked: 10 Smoked in Last 30 Days: No Second Hand Smoke Exposure: No Use of substances other than those prescribed or required for medical reasons: No Advance Directives: Yes Advance Directives on File: Yes Advance Directives Date on File: 05/18/23 service: No Meds Allergies Allergy/AdvReac Type Severity Reaction Status Date / Time cephalexin Allergy Unknown Verified 12/15/23 11:11 hydrochlorothiazide Allergy Unknown Verified 12/15/23 11:11 Sulfa (Sulfonamide Allergy Unknown Verified 12/15/23 11:11 Antibiotics) trimethoprim Allergy Unknown Verified 12/15/23 11:11 Active Medications: Current Medications Acetaminophen (Acetaminophen 325 Mg Tablet) 650 mg PO Q6H PRN PRN Reason: Pain, Mild (Pain Scale 1-3), fever or headache Calcium Carbonate (Calcium Carbonate 750 Mg Tab.Chew) 750 mg PO Q4H PRN PRN Reason: Heartburn Enoxaparin Sodium (Enoxaparin Sodium 40 Mg/0.4 Ml Syringe) 40 mg SUBCUT Q24H [facility] Last Admin: 12/15/23 14:29 Dose: 40 mg Hydralazine HCl (Hydralazine Hcl 50 Mg Tablet) 50 mg PO BID [facility]; Protocol Last Admin: 12/15/23 20:28 Dose: 50 mg Ceftriaxone Sodium 1 gm/ (Sodium Chloride) 50 mls @ 100 mls/hr IV Q24H [facility] Lisinopril (Lisinopril 40 Mg Tablet) 40 mg PO DAILY [facility]; Protocol Magnesium Hydroxide (Milk Of Magnesia 30 Ml Oral.Susp) 30 ml PO DAILY PRN PRN Reason: Constipation Melatonin (Melatonin 3 Mg Tablet) 6 mg PO BEDTIME PRN PRN Reason: Insomnia Memantine (Memantine Hcl 5 Mg Tablet) 5 mg PO BID [facility] Last Admin: 12/15/23 20:29 Dose: 5 mg Sodium Chloride (0.9 % Sodium Chloride Flush 3 Ml Syringe) 3 ml IVFLUSH QSHIFT [facility] Last Admin: 12/16/23 06:36 Dose: 3 ml Home Medications ?Medication ?Instructions ?Recorded ?Confirmed ?Last Taken ?Type hydralazine 50 mg tablet 50 mg PO BID 02/10/22 12/15/23 12/15/23 09:00 History lisinopril 20 mg tablet 40 mg PO DAILY 02/10/22 12/15/23 12/15/23 09:00 History memantine 5 mg tablet 5 mg PO BID 02/10/22 12/15/23 12/15/23 09:00 History metoprolol succinate 25 mg 25 mg PO DAILY 02/10/22 12/15/23 12/15/23 09:00 History tablet,extended release 24 hr Physical Exam Vital Signs: Vital Signs: Last Vital Signs Temp 98.7 F 12/16/23 08:00 Pulse 50 12/16/23 08:00 Resp 18 12/16/23 08:00 BP 158/72 H 12/16/23 08:00 Pulse Ox 94 12/16/23 08:00 O2 Del Method Room Air 12/16/23 08:00 BMI result Body Mass Index 24.6 Const: General: comfortable and no acute distress Orientation/consciousness: patient oriented x3 HEENT: Other: Unremarkable Head: Yes normal to inspection Neck: Neck: Yes normal visual inspection Chest: Chest palpation & inspection: normal inspection of the chest Resp: Auscultation: clear to auscultation bilaterally Cardio: Palpation: normal PMI Heart sounds: S1 normal heart sound present, S2 normal heart sound present, no gallops, Murmur heart sound present systolic III/ and at the right sternal border and no rubs GI: Palpation (GI): Soft to palpation Back/Spine/Pelvis: Other: unremarkable Skin: General skin exam: no rashes or lesions noted Neuro: General: patient oriented x3 Extrem: General: Yes normal to inspection Psych: Mental Status: mental status grossly abnormal Objective Labs and Meds 12/16/23 06:17 12/16/23 06:17 Lab results: Laboratory Results - last 24 hr 12/15/23 12/15/23 12/15/23 11:23 11:47 14:09 WBC 4.8 RBC 3.86 L Hgb 12.0 Hct 34.9 L MCV 90.4 MCH 31.1 MCHC 34.4 RDW 14.6 Plt Count 201 MPV 10.6 Immature Gran % (Auto) 0.2 Neut % (Auto) 67.3 Lymph % (Auto) 11.3 L [place] % (Auto) 19.5 H Eos % (Auto) 0.0 Baso % (Auto) 1.7 Lymph # (Auto) 0.5 L [place] # (Auto) 0.9 Eos # (Auto) 0.0 Baso # (Auto) 0.1 Abs Immat Gran (auto) 0.01 Absolute Neuts (auto) 3.2 Absolute Nucleated RBC 0.000 Nucleated RBC % (auto) 0.0 Sodium 127 L Potassium 3.8 Chloride 99 Carbon Dioxide 22 Anion Gap 10 L BUN 11 Creatinine 0.68 Estim Creat Clear Calc 56.6 Estimated GFR > 60 Random Glucose 91 Osmolality 264 L Calcium 8.4 Magnesium 1.7 Total Bilirubin 0.5 Direct Bilirubin 0.2 AST 28 ALT 15 Alkaline Phosphatase 81 Total Protein 6.6 Albumin 3.4 L Urine Color Yellow Urine Appearance Turbid Urine pH 6.5 Ur Specific [place] 1.015 Urine Protein 30 (1+) H Urine Glucose (UA) Negative Urine Ketones Negative Urine Blood Negative Urine Nitrite Positive H Ur Leukocyte Esterase Large (3+) H Urine RBC 0-2 Urine WBC >50 H Urine WBC Clumps Present Ur Squamous Epith Cells >20 Urine Bacteria 2+ Hyaline Casts 0-2 Urine Osmolality 485 Ur Random Sodium 129.0 COVID-19 (MAR) Positive A COVID-19 Clin Com See Note 12/16/23 06:17 WBC 4.7 L RBC 3.84 L Hgb 12.0 Hct 34.0 L MCV 88.5 MCH 31.3 MCHC 35.3 H RDW 14.2 Plt Count 196 MPV 11.2 Immature Gran % (Auto) 0.2 Neut % (Auto) 65.9 Lymph % (Auto) 13.9 L [place] % (Auto) 18.3 H Eos % (Auto) 0.2 Baso % (Auto) 1.5 Lymph # (Auto) 0.7 L [place] # (Auto) 0.9 Eos # (Auto) 0.0 Baso # (Auto) 0.1 Abs Immat Gran (auto) 0.01 Absolute Neuts (auto) 3.1 Absolute Nucleated RBC 0.000 Nucleated RBC % (auto) 0.0 Sodium 128 L Potassium 3.4 Chloride 99 Carbon Dioxide 22 Anion Gap 10 L BUN 10 Creatinine 0.60 Estim Creat Clear Calc 64.1 Estimated GFR > 60 Random Glucose 92 Osmolality Calcium 8.0 L Magnesium Total Bilirubin Direct Bilirubin AST ALT Alkaline Phosphatase Total Protein Albumin Urine Color Urine Appearance Urine pH Ur Specific [place] Urine Protein Urine Glucose (UA) Urine Ketones Urine Blood Urine Nitrite Ur Leukocyte Esterase Urine RBC Urine WBC Urine WBC Clumps Ur Squamous Epith Cells Urine Bacteria Hyaline Casts Urine Osmolality Ur Random Sodium COVID-19 (MAR) COVID-19 Clin Com ECG Interpretation: EKG shows sinus bradycardia at 47/Min; no significant ST-T changes and otherwise unremarkable. On telemetry, heart rate is about 50/Min. Imaging Radiologist's impression: Impressions Chest X-Ray 12/15/23 13:00 IMPRESSION: Left base atelectasis. Tiny left effusion not excluded. Assessment and Plan (1) Bradycardia: Status: Acute (2) Nonrheumatic aortic (valve) stenosis: Status: Acute (3) Dementia, unspecified, without behavioral disturbance: Status: Acute (4) COVID-19: Status: Acute Plan Pertinent data reviewed. She is COVID positive. EKG/telemetry shows mild sinus bradycardia but nothing profound. On exam, she has murmur of aortic stenosis. Otherwise, quite confused. We will await an echocardiogram. Otherwise, management of COVID per hospitalist team. Because of frailty as well as dementia may not be suitable for any invasive care. Will follow. Procedures Date of Service Date of Service: 12/16/23
--- NOTE | 2023-12-16 11:07 | P.PNIM_ITS ---
Subjective Subjective Date of Service: 12/16/23 Interval History: feeling okay Physical Exam 2 Vital Signs: Vital Signs: Last Vital Signs Temp 98.7 F 12/16/23 08:00 Pulse 50 12/16/23 08:00 Resp 18 12/16/23 08:00 BP 158/72 H 12/16/23 08:00 Pulse Ox 94 12/16/23 08:00 O2 Del Method Room Air 12/16/23 08:00 BMI result Body Mass Index 24.6 General: AO X 3, no acute distress Resp: CTA bilateral, no accessory muscles used CVS: S1,S2,RRR, murmur GI: soft, non tender, non distended Neuro: motor grossly intact, alert Psych: appropriate affect, appropriate insight Objective Data Active Medications Acetaminophen (Acetaminophen 325 Mg Tablet) 650 mg PO Q6H PRN PRN Reason: Pain, Mild (Pain Scale 1-3), fever or headache Calcium Carbonate (Calcium Carbonate 750 Mg Tab.Chew) 750 mg PO Q4H PRN PRN Reason: Heartburn Enoxaparin Sodium (Enoxaparin Sodium 40 Mg/0.4 Ml Syringe) 40 mg SUBCUT Q24H [facility] Last Admin: 12/15/23 14:29 Dose: 40 mg Documented By: CINTHIA Hydralazine HCl (Hydralazine Hcl 50 Mg Tablet) 50 mg PO BID [facility]; Protocol Last Admin: 12/16/23 09:23 Dose: 50 mg Documented By: CASE Ceftriaxone Sodium 1 gm/ (Sodium Chloride) 50 mls @ 100 mls/hr IV Q24H [facility] Last Infusion: 12/16/23 10:23 Dose: Infused Documented By: CASE Lisinopril (Lisinopril 40 Mg Tablet) 40 mg PO DAILY [facility]; Protocol Last Admin: 12/16/23 09:23 Dose: 40 mg Documented By: CASE Magnesium Hydroxide (Milk Of Magnesia 30 Ml Oral.Susp) 30 ml PO DAILY PRN PRN Reason: Constipation Melatonin (Melatonin 3 Mg Tablet) 6 mg PO BEDTIME PRN PRN Reason: Insomnia Memantine (Memantine Hcl 5 Mg Tablet) 5 mg PO BID [facility] Last Admin: 12/16/23 09:23 Dose: 5 mg Documented By: CASE Sodium Chloride (0.9 % Sodium Chloride Flush 3 Ml Syringe) 3 ml IVFLUSH QSHIFT [facility] Last Admin: 12/16/23 09:34 Dose: 3 ml Documented By: CASE Labs 12/16/23 06:17 12/16/23 06:17 Labs: Laboratory Results - last 24 hr 12/15/23 12/15/23 12/15/23 11:23 11:47 14:09 MCV 90.4 MCH 31.1 MCHC 34.4 RDW 14.6 Plt Count 201 MPV 10.6 Immature Gran % (Auto) 0.2 Neut % (Auto) 67.3 Lymph % (Auto) 11.3 L [place] % (Auto) 19.5 H Eos % (Auto) 0.0 Baso % (Auto) 1.7 Lymph # (Auto) 0.5 L [place] # (Auto) 0.9 Eos # (Auto) 0.0 Baso # (Auto) 0.1 Abs Immat Gran (auto) 0.01 Absolute Neuts (auto) 3.2 Absolute Nucleated RBC 0.000 Nucleated RBC % (auto) 0.0 Anion Gap 10 L Estim Creat Clear Calc 56.6 Estimated GFR > 60 Random Glucose 91 Osmolality 264 L Calcium 8.4 Magnesium 1.7 Total Bilirubin 0.5 Direct Bilirubin 0.2 AST 28 ALT 15 Alkaline Phosphatase 81 Total Protein 6.6 Albumin 3.4 L Urine Color Yellow Urine Appearance Turbid Urine pH 6.5 Ur Specific [place] 1.015 Urine Protein 30 (1+) H Urine Glucose (UA) Negative Urine Ketones Negative Urine Blood Negative Urine Nitrite Positive H Ur Leukocyte Esterase Large (3+) H Urine RBC 0-2 Urine WBC >50 H Urine WBC Clumps Present Ur Squamous Epith Cells >20 Urine Bacteria 2+ Hyaline Casts 0-2 Urine Osmolality 485 Ur Random Sodium 129.0 COVID-19 (MAR) Positive A COVID-19 Clin Com See Note 12/16/23 06:17 MCV 88.5 MCH 31.3 MCHC 35.3 H RDW 14.2 Plt Count 196 MPV 11.2 Immature Gran % (Auto) 0.2 Neut % (Auto) 65.9 Lymph % (Auto) 13.9 L [place] % (Auto) 18.3 H Eos % (Auto) 0.2 Baso % (Auto) 1.5 Lymph # (Auto) 0.7 L [place] # (Auto) 0.9 Eos # (Auto) 0.0 Baso # (Auto) 0.1 Abs Immat Gran (auto) 0.01 Absolute Neuts (auto) 3.1 Absolute Nucleated RBC 0.000 Nucleated RBC % (auto) 0.0 Anion Gap 10 L Estim Creat Clear Calc 64.1 Estimated GFR > 60 Random Glucose 92 Osmolality Calcium 8.0 L Magnesium Total Bilirubin Direct Bilirubin AST ALT Alkaline Phosphatase Total Protein Albumin Urine Color Urine Appearance Urine pH Ur Specific [place] Urine Protein Urine Glucose (UA) Urine Ketones Urine Blood Urine Nitrite Ur Leukocyte Esterase Urine RBC Urine WBC Urine WBC Clumps Ur Squamous Epith Cells Urine Bacteria Hyaline Casts Urine Osmolality Ur Random Sodium COVID-19 (MAR) COVID-19 Clin Com Assessment and Plan (1) Dementia, unspecified, without behavioral disturbance: Status: Acute Plan 83F PMH paroxysmal atrial fibrillation, hypertension, hyperlipidemia, unspecified dementia, presented with weakness found to have UTI, symptomatic bradycardia, COVID weakness due to covid, hyponatremia, uti symptomatic management for covid pt eval encourage po salt, monitor iv ceftriaxone (tolerating), cultures rolly mild, 50s cardio appreciated, no need for pacing, hold toprol follow up echo severe as follow up echo htn hydralazine, lisinopril dvt prophylaxis - lovenox dnr/dni reason for continued hospitalization:hyponatremia, awaiting culture Quality Stroke Does the patient have a stroke diagnosis?: No VTE Prior VTE?: No VTE Risk Level:: Medical - moderate - high VTE Device Contraindication: Treatment Not Indicated VTE Drug Contraindication: N/A - Med Ordered
[2023-12-16] MEDS: Enoxaparin Sodium 40 MG/0.4 ML SYRINGE SUBCUT (13:13)
--- NOTE | 2023-12-16 15:16 | MHC.CM.PN ---
IMM 12/16/23 DELIVERED TO SON/HCP QUETA AT NUMBER ON FILE, QUETA REPORTS PT NOW LIVES IN ASSISTED LIVING AT [facility] AND IS NO LONGER IN INDEP LIVING, QUETA REQUESTING HOME SERVICES AT PT'S ASSISTED, QUETA REPORTS PT AMBULATES W/A CANE AT BASELINE AND HAS ASSISTANCE W/SHOWERS BUT TYPICALLY GETS HERSELF UP AND DRESSED, ASSISTED DOES ADMINISTER MEDS FOR PT HOWEVER QUETA REPORTS THEY AREN'T NURSES, QUETA ALSO REQUESTING [facility] SET UP TRANSPORT FOR PT. PCP/HCP ON FILE VERIFIED. PER DISCUSSION CM LEFT PT'S IMM W/PT'S DTR CHERYL AT BEDSIDE. NEW MET W/CHERYL WHO REPORTS SHE SPOKE W/[facility] FOR SN/PT, REFERRAL WILL BE PLACED. CHERYL ALSO ASKING FOR ASSISTANCE W/CERTIFIED PHARMACY TECH/LINEN SUPERVISOR AND CHERYL WAS PROVIDED W/A LIST OF HH AGENCIES. CHERYL REQUESTING SPECIAL PRESSURE/OFF LOADING MATTRESS FOR PT AND IS CONCERNED ABOUT BREAKDOWN, MULTIPLE PEOPLE INVOLVED AND MATTRESS WILL BE DELIVERED TO BEDSIDE. CHERYL REQUESTING PT EVAL PRIOR TO DC AND HOSPITALIST AWARE AND WILL ORDER, CHERYL IS AWARE IT WILL NOT HAPPEN UNTIL TOMORROW P.T. HAS ALREADY LEFT FOR DAY.
--- NOTE | 2023-12-16 18:38 | PC.NURSE ---
Patient is alert and oriented X2. Patient on tele monitor resulting in A-fib. Patient continues on enhanced respiratory precautions for COVID. Patient remains on room air and lung sounds clear. Patient is incontinent and uses purewick. Last BM 12/16/23. Patient is 2 assist for transfer. Patient skin assessed and was clean dry and intact. Patients heels were red, but blanchable, heels elevated on heels. Daughter in at bedside and updated on plan of care. Daughter verbalized concern for patients skin stating her heel is red and was concerned for a pressure injury on both coccyx and heels. Foam dressing applied to coccyx, pressure relieving boots applied, air loss bed placed and patient assisted into recliner with chair cushion. Patient later assisted back into bed and repositioned frequently. Frequent rounding performed and safety maintained.
[2023-12-16] MEDS: Melatonin 3 MG TABLET 6 MG PO (21:25)
[2023-12-17] VITALS (7 sets, daily range): BP systolic 127–155; BP diastolic 63–73; PULSE 52–65; RESP 16–20; TEMP 36–36.6; O2SAT 95–97
[2023-12-17] MEDS: 0.9 % Sodium Chloride Flush 3 ML SYRINGE IVFLUSH ×3 (05:54→21:30)
[2023-12-17 06:34] LABS: Anion Gap 12 (12-20); Blood Urea Nitrogen 8 mg/dL (9-16); Calcium 8.7 mg/dL (8.4-10.2); Carbon Dioxide 25 mmol/L (22-29); Chloride 98 mmol/L (96-108); Creatinine Clr Calc Pharmacy 61.1; Estimated Glomerular Filt Rate > 60; Glucose Fasting 99 mg/dL (60-99); Potassium 3.7 mmol/L (3.3-5.1); Sodium 131 mmol/L (135-145)
[2023-12-17 06:44] LABS: Hematocrit 40.3 % (37.0-47.0); Hemoglobin 13.8 g/dl (12.0-16.0); Mean Corpuscular HGB Conc 34.2 g/dl (31.0-35.0); Mean Corpuscular Hemoglobin 30.3 pg (27.0-33.0); Mean Corpuscular Volume 88.4 fL (80.0-98.0); Mean Platelet Volume 11.1 fL (9.4-12.3); Platelet Count 207 X10*3/uL (160-400); Red Blood Count 4.56 X10*6/uL (4.20-5.50); White Blood Count 3.9 X10*3/uL (4.8-10.8)
[2023-12-17] MEDS: hydrALAZINE HCl 50 MG TABLET PO ×2 (08:29→21:30)
[2023-12-17] MEDS: lisinopriL 40 MG TABLET PO (08:30)
[2023-12-17] MEDS: Memantine HCl 5 MG TABLET PO ×2 (08:30→21:30)
[2023-12-17] MEDS: cefTRIAXone sodium 1 GM in 0.9 % Sodium Chloride 50 ML IV (08:30)
--- NOTE | 2023-12-17 11:41 | P.PNIM_ITS ---
Subjective Subjective Date of Service: 12/17/23 Interval History: feeling better Physical Exam 2 Vital Signs: Vital Signs: Last Vital Signs Temp 97.4 F 12/17/23 08:00 Pulse 52 12/17/23 09:30 Resp 18 12/17/23 08:00 BP 155/71 H 12/17/23 09:30 Pulse Ox 95 12/17/23 09:30 O2 Del Method Room Air 12/17/23 08:00 BMI result Body Mass Index 24.6 General: AO X 3, no acute distress Resp: CTA bilateral, no accessory muscles used CVS: S1,S2,RRR, murmur GI: soft, non tender, non distended Neuro: motor grossly intact, alert Psych: appropriate affect, appropriate insight Objective Data Active Medications Acetaminophen (Acetaminophen 325 Mg Tablet) 650 mg PO Q6H PRN PRN Reason: Pain, Mild (Pain Scale 1-3), fever or headache Calcium Carbonate (Calcium Carbonate 750 Mg Tab.Chew) 750 mg PO Q4H PRN PRN Reason: Heartburn Enoxaparin Sodium (Enoxaparin Sodium 40 Mg/0.4 Ml Syringe) 40 mg SUBCUT Q24H [facility] Last Admin: 12/16/23 13:13 Dose: 40 mg Documented By: CASE Hydralazine HCl (Hydralazine Hcl 50 Mg Tablet) 50 mg PO BID [facility]; Protocol Last Admin: 12/17/23 08:29 Dose: 50 mg Documented By: PASTORA Ceftriaxone Sodium 1 gm/ (Sodium Chloride) 50 mls @ 100 mls/hr IV Q24H [facility] Last Infusion: 12/17/23 09:09 Dose: Infused Documented By: PASTORA Lisinopril (Lisinopril 40 Mg Tablet) 40 mg PO DAILY [facility]; Protocol Last Admin: 12/17/23 08:30 Dose: 40 mg Documented By: PASTORA Magnesium Hydroxide (Milk Of Magnesia 30 Ml Oral.Susp) 30 ml PO DAILY PRN PRN Reason: Constipation Melatonin (Melatonin 3 Mg Tablet) 6 mg PO BEDTIME PRN PRN Reason: Insomnia Last Admin: 12/16/23 21:25 Dose: 6 mg Documented By: GYPSY Memantine (Memantine Hcl 5 Mg Tablet) 5 mg PO BID [facility] Last Admin: 12/17/23 08:30 Dose: 5 mg Documented By: PASTORA Sodium Chloride (0.9 % Sodium Chloride Flush 3 Ml Syringe) 3 ml IVFLUSH QSHIFT [facility] Last Admin: 12/17/23 08:50 Dose: Not Given Documented By: PASTORA Non-Admin Reason: IV Running Labs 12/17/23 05:25 12/17/23 05:00 Labs: Laboratory Results - last 24 hr 12/17/23 12/17/23 05:00 05:25 MCV 88.4 MCH 30.3 MCHC 34.2 RDW 14.0 Plt Count 207 MPV 11.1 Absolute Nucleated RBC 0.000 Nucleated RBC % (auto) 0.0 Anion Gap 12 Estim Creat Clear Calc 61.1 Estimated GFR > 60 Fasting Glucose 99 Calcium 8.7 D Microbiology Microbiology Results: Microbiology 12/15/23 Unknown Urine Culture - Preliminary Urine Catheterized - Straight Catheter Gram negative fatoumata Assessment and Plan (1) Dementia, unspecified, without behavioral disturbance: Status: Acute Plan 83F PMH paroxysmal atrial fibrillation, hypertension, hyperlipidemia, unspecified dementia, presented with weakness found to have UTI, symptomatic bradycardia, COVID weakness due to covid, hyponatremia, uti symptomatic management for covid encourage po salt, monitor, improved to 131 iv ceftriaxone (tolerating), cultures rolly mild, 50s cardio appreciated, no need for pacing, hold toprol aortic stenosis echo reading as moderate htn hydralazine, lisinopril dvt prophylaxis - lovenox dnr/dni reason for continued hospitalization:awaiting culture Quality Stroke Does the patient have a stroke diagnosis?: No VTE Prior VTE?: No VTE Risk Level:: Medical - moderate - high VTE Device Contraindication: Treatment Not Indicated VTE Drug Contraindication: N/A - Med Ordered
--- NOTE | 2023-12-17 12:10 | MHC.CM.PN ---
ANTIC PT WILL BE DISCHARGED BACK TO [facility] FOR SN/PT, CM WILL FOLLOW UP W/FAMILY REGARDING TRANSPORT
--- NOTE | 2023-12-17 12:25 | MHC.CM.PN ---
EMR REVIEWED, CM SPOKE W/PT'S SON/HCA QUETA AT NUMBER ON FILE AND SISTER /ALT HCP CHERYL AT BEDSIDE, BOTH ARE AGREEABLE TO A 1:30PM DC TOMORROW, W/[facility] AND DTR CHERYL IS CALLING HH AGENCIES FROM LIST PROVIDED BY NEW, PT WILL NEED BLS TRANSPORT, CM WILL CONT TO FOLLOW DC NEEDS.
[2023-12-17] MEDS: Enoxaparin Sodium 40 MG/0.4 ML SYRINGE SUBCUT (16:19)
[2023-12-17] MEDS: Acetaminophen 325 MG TABLET 650 MG PO (21:30)
[2023-12-17] MEDS: Melatonin 3 MG TABLET 6 MG PO (21:30)
[2023-12-18 03:43] VITALS: BP 143/64; PULSE 52; RESP 18; TEMP 37; O2SAT 95
[2023-12-18 06:22] LABS: Hemoglobin 13.8 g/dl (12.0-16.0); Mean Corpuscular HGB Conc 35.4 g/dl (31.0-35.0); Mean Corpuscular Hemoglobin 30.9 pg (27.0-33.0); Mean Corpuscular Volume 87.4 fL (80.0-98.0); Mean Platelet Volume 10.8 fL (9.4-12.3); Platelet Count 222 X10*3/uL (160-400); Red Blood Count 4.46 X10*6/uL (4.20-5.50); Red Cell Distribution Width 13.9 % (11.0-16.0); White Blood Count 3.3 X10*3/uL (4.8-10.8)
[2023-12-18 06:41] LABS: Anion Gap 15 (12-20); Blood Urea Nitrogen 11 mg/dL (9-16); Carbon Dioxide 24 mmol/L (22-29); Chloride 97 mmol/L (96-108); Creatinine Clr Calc Pharmacy 55.8; Estimated Glomerular Filt Rate > 60; Glucose Fasting 101 mg/dL (60-99); Potassium 3.5 mmol/L (3.3-5.1); Sodium 132 mmol/L (135-145)
[2023-12-18 08:00] VITALS: BP 146/63; PULSE 57; RESP 20; TEMP 36.1; O2SAT 94
[2023-12-18] MEDS: 0.9 % Sodium Chloride Flush 3 ML SYRINGE IVFLUSH (08:38)
[2023-12-18] MEDS: lisinopriL 40 MG TABLET PO (08:39)
[2023-12-18] MEDS: hydrALAZINE HCl 50 MG TABLET PO (08:39)
[2023-12-18] MEDS: Memantine HCl 5 MG TABLET PO (08:39)
[2023-12-18] MEDS: cefTRIAXone sodium 1 GM in 0.9 % Sodium Chloride 50 ML IV (08:40)
--- NOTE | 2023-12-18 09:33 | PM.PNCARD ---
Subjective Subjective Date of Service: 12/18/23 Interval history: She states she is feeling fine. Denies any cardiac complaints. Review of Systems Review of Systems Yes all other systems are reviewed and are negative Constitutional: Reports as per HPI and Reports no additional constitutional complaints Eyes: Reports as per HPI and Denies no additional eye complaints Denies system reviewed and no additional complaints, except as documented and Reports as per HPI Cardiovascular: Reports as per HPI, Reports no additional cardiovascular complaints, Denies acrocyanosis, Denies cool extremities, Denies chest pain, Denies leg edema, Denies lightheadedness, Denies palpitations and Denies dyspnea Respiratory: Reports as per HPI, Denies no additional respiratory complaints and Denies dyspnea Gastrointestinal: Reports as per HPI and Denies no additional gastrointestinal complaints Genitourinary: Reports as per HPI Musculoskeletal: Reports no additional musculoskeletal complaints and Reports as per HPI Skin/Breast: Reports system reviewed and no additional complaints, except as docu Reports system reviewed and no additional complaints, except as documented and Reports as per HPI Psychiatric: Reports no additional psychiatric complaints and Reports as per HPI Endocrine: Reports no additional endocrine complaints, Reports as per HPI and Denies palpitations Hematologic/Lymphatic: Reports no additional hematologic/lymphatic complaints and Reports as per HPI Allergic/Immunologic: Reports no additional allergic/immunologic complaints and Reports as per HPI Physical Exam Vital Signs: Last Vital Signs Temp 96.9 F 12/18/23 08:00 Pulse 57 12/18/23 08:00 Resp 20 12/18/23 08:00 BP 146/63 H 12/18/23 08:00 Pulse Ox 94 12/18/23 08:00 O2 Del Method Room Air 12/18/23 08:00 BMI result Body Mass Index 24.6 Const General: comfortable and no acute distress Orientation/consciousness: patient oriented x3 HEENT Other: Unremarkable Head: Yes normal to inspection Neck Neck: Yes normal visual inspection Chest Chest palpation & inspection: normal inspection of the chest Resp Auscultation: clear to auscultation bilaterally Cardio Palpation: normal PMI Heart sounds: S1 normal heart sound present, S2 normal heart sound present, no gallops, Murmur heart sound present systolic II/ and at the right sternal border and no rubs GI Palpation (GI): Soft to palpation Back/Spine/Pelvis Other: unremarkable Skin General skin exam: no rashes or lesions noted Neuro General: patient oriented x3 Extrem General: Yes normal to inspection Psych Mental Status: mental status grossly normal Objective Labs and Meds 12/18/23 06:01 12/18/23 06:01 Lab results: Laboratory Results - last 24 hr 12/18/23 06:01 WBC 3.3 L RBC 4.46 Hgb 13.8 Hct 39.0 MCV 87.4 MCH 30.9 MCHC 35.4 H RDW 13.9 Plt Count 222 MPV 10.8 Absolute Nucleated RBC 0.000 Nucleated RBC % (auto) 0.0 Sodium 132 L Potassium 3.5 Chloride 97 Carbon Dioxide 24 Anion Gap 15 BUN 11 Creatinine 0.69 Estim Creat Clear Calc 55.8 Estimated GFR > 60 Fasting Glucose 101 H Calcium 9.0 Progress Note: A&P Assessment and plan (1) Bradycardia: Status: Acute (2) Nonrheumatic aortic (valve) stenosis: Status: Acute (3) Dementia, unspecified, without behavioral disturbance: Status: Acute (4) COVID-19: Status: Acute Plan Pertinent data reviewed. She is COVID positive. EKG/telemetry shows mild sinus bradycardia but nothing profound. On echocardiogram, moderate aortic stenosis. No specific management for the bradycardia. She is on beta-blockers at home and that can be held. If she is able to come to the clinic, aortic stenosis can be followed. Not entirely clear if she can make it or not. There is also some underlying dementia. Total time spent including review of data, counseling, documentation, coordination of care-42 minutes. Time Spent With Patient Time: Total time managing care of this patient today ____ minutes. Progress Note: Quality Stroke Does the patient have a stroke diagnosis?: No Procedures Date of Service Date of Service: 12/18/23
[2023-12-18 11:04] VITALS: BP 146/63; PULSE 57; O2SAT 94
--- NOTE | 2023-12-18 11:14 | PM.DS ---
DS: Providers Provider Date of Service: 12/18/23 Date of admission: 12/15/23 13:50 Date of discharge: 12/18/23 Primary care physician: Alex Ortiz MD Consults: 12/15/23 13:50 Consult to Cardiology Routine Consulting Provider: [facility] Reason for consultation: symptomatic bradycardia, suspect severe (covid +) DS: Diagnosis Discharge Diagnosis (1) Bradycardia: Status: Acute (2) Nonrheumatic aortic (valve) stenosis: Status: Acute (3) Dementia, unspecified, without behavioral disturbance: Status: Acute (4) COVID-19: Status: Acute DS: Summary Hospital Course Hospital Course: from initial hpi: 83-year-old female with history of paroxysmal atrial fibrillation not on anticoagulation, hypertension, hyperlipidemia, unspecified dementia presented to the ED earlier today from assisted living facility due to general malaise, weakness, exertional lightheadedness and dyspnea on exertion. She has also had decreased p.o. intake. Denies fevers, chills, congestion, sore throat, abdominal pain, nausea, vomiting, diarrhea, dysuria, hematuria, increased urinary frequency/urgency, cough, shortness of breath at rest, orthopnea, PND, wheezing, chest pain. Denies any known sick contacts. Since arrival, blood pressure stable but noted to be bradycardic in the high 40s, vitals otherwise stable. No leukocytosis. Renal function baseline, electrolyte levels normal except for sodium of 127. Urinalysis with 3+ leukocytes, positive nitrites, negative blood, 1+ protein, positive urinary sediment, 2+ bacteria. She is positive for COVID-19. Chest x-ray pending. EKG shows sinus bradycardia, rate 47 without any noted AV gil blocks or acute ischemic changes. In the ED has received 1 g IV ceftriaxone and 1 L IV NS. hospital course: Patient was admitted for weakness due to COVID, acute hyponatremia and urinary tract infection. She was not hypoxic and only required symptomatic management for COVID. Oral intake was encouraged and sodium improved to 131. For urinary tract infection was initially treated with IV ceftriaxone, urine culture grew Pseudomonas that was sensitive to levofloxacin. Patient transitioned to p.o. levofloxacin and will continue 4 more days of treatment. For aortic stenosis she had echocardiogram which rated as moderate. For bradycardia her metoprolol was held and heart rate was stable in the mid 50s nonsymptomatic. For hypertension was continued on hydralazine and lisinopril. Patient will be discharged to senior care facility for short-term rehab. Time Attestation Discharge Coordination Time (in mins): 37 Quality: Safe Use of Opioids Does Pt have an Active Cancer Diagnosis on the Problem List?: No Quality: Stroke Does the patient have a stroke diagnosis?: No Physical Exam Vital Signs: Vital Signs: Last Vital Signs Temp 96.9 F 12/18/23 08:00 Pulse 57 12/18/23 11:04 Resp 20 12/18/23 08:00 BP 146/63 H 12/18/23 11:04 Pulse Ox 94 12/18/23 11:04 O2 Del Method Room Air 12/18/23 08:00 BMI result Body Mass Index 24.6 Const: General: comfortable and no acute distress Orientation/consciousness: patient oriented x3 HEENT: Other: Unremarkable Head: Yes normal to inspection Neck: Neck: Yes normal visual inspection Chest: Chest palpation & inspection: normal inspection of the chest Resp: Auscultation: clear to auscultation bilaterally Cardio: Palpation: normal PMI Heart sounds: S1 normal heart sound present, S2 normal heart sound present, no gallops, Murmur heart sound present systolic II/ and at the right sternal border and no rubs GI: Palpation (GI): Soft to palpation Back/Spine/Pelvis: Other: unremarkable Skin: General skin exam: no rashes or lesions noted Neuro: General: patient oriented x3 Extrem: General: Yes normal to inspection Psych: Mental Status: mental status grossly normal DS: Data Data Completed and Pending Labs on day of discharge: Laboratory Results - last 24 hr 12/18/23 06:01 WBC 3.3 L RBC 4.46 Hgb 13.8 Hct 39.0 MCV 87.4 MCH 30.9 MCHC 35.4 H RDW 13.9 Plt Count 222 MPV 10.8 Absolute Nucleated RBC 0.000 Nucleated RBC % (auto) 0.0 Sodium 132 L Potassium 3.5 Chloride 97 Carbon Dioxide 24 Anion Gap 15 BUN 11 Creatinine 0.69 Estim Creat Clear Calc 55.8 Estimated GFR > 60 Fasting Glucose 101 H Calcium 9.0 Preliminary micro results at discharge 12/15/23 Unknown Urine Culture - Preliminary Urine Catheterized - Straight Catheter Pseudomonas aeruginosa Discharge Plan Discharge Anticipated Discharge Date/Time: 12/18/23 11:12 Patient Disposition: Xfer SNF Discharge Diagnosis: uti, covid Referrals: [facility] [Outside] - 1 Day ([facility]) Alex Ortiz MD [Primary Care Provider] - 1 Week Discharge Medications: New levofloxacin 500 mg Tablet 500 mg PO Q24H 4 Days Qty: 0 0RF Continued lisinopril 20 mg tablet 40 mg PO DAILY memantine 5 mg tablet 5 mg PO BID hydralazine 50 mg tablet 50 mg PO BID Discontinued metoprolol succinate 25 mg tablet extended release 24 hr 25 mg PO DAILY Discharge Orders: Discharge Order (Routine); Ordered 12/18/23 Ordered By: Juaquin Zuñiga Diet: Advance to usual diet Activity on Discharge: As tolerated Stand Alone Forms: Patient Portal Discharge page Print Language: Serbian Care Plan Goals: recovery Health Concerns: covid, uti Plan of Treatment: 4 more days levaquin Assessment: see above
[2023-12-18 11:34] VITALS: BP 128/65; PULSE 70; RESP 20; TEMP 36.1; O2SAT 93
[2023-12-18] MEDS: levoFLOXacin 500 MG TABLET PO (11:39)
--- NOTE | 2023-12-18 12:38 | MHC.CM.PN ---
PT MEDICALLY CLEARED FOR DC TO STR AT [facility], [facility] UPDATED VIA [facility] AND CM HAS REQUESTED SNF FOLLOW THROUGH W/[facility] ON DISCHARGE, NINI FOR TRANSPROT AT 2:30PM
== END 2023-12-18 14:32 | disposition skilled nursing facility (03) | DRG 689 ==
LOC: HO.ED 13:36 → HO.EDOVER 14:01 → HO.IMC 19:33
PROVIDERS: Physician Assistant; Admitting Provider Physician Assistant; Emergency Provider Emergency Medicine; PCP Internal Medicine; Visit Provider Internal Medicine
DX: N39.0 Urinary tract infection, site not specified (principal); U07.1 COVID-19; E87.1 Hypo-osmolality and hyponatremia; B96.5 Pseudomonas (aeruginosa) (mallei) (pseudomallei) as the cause of diseases classified elsewhere; F03.90 Unspecified dementia, unspecified severity, without behavioral disturbance, psychotic disturbance, mood disturbance, and anxiety; Z66 Do not resuscitate; R00.1 Bradycardia, unspecified; I35.0 Nonrheumatic aortic (valve) stenosis; I10 Essential (primary) hypertension; Z87.891 Personal history of nicotine dependence; Z79.899 Other long term (current) drug therapy
CPT/HCPCS: 36415; 71045; 80048; 80076; 81001; 83735; 83930; 83935; 84300; 85025; 85027; 87086; 87088; 87186; 87635; 93005; 93306; 97110; 97116; 97162; 99285; J0696; J1650; Q9957

== ENCOUNTER → 2023-12-15 11:00 | Outpatient (BNV) | payer MEDICARE, OTHER, SELFPAY | PROVIDERS: Admitting Provider Physician Assistant; Emergency Provider Emergency Medicine; PCP Internal Medicine; Visit Provider Internal Medicine | DX: R00.1 Bradycardia, unspecified (principal); R53.1 Weakness | CPT/HCPCS: 93010 ==

== ENCOUNTER 2023-12-15 13:50 | Outpatient (BNV) | payer MEDICARE, OTHER, SELFPAY | END 2023-12-16 07:00 | PROVIDERS: Admitting Provider Physician Assistant; Emergency Provider Emergency Medicine; PCP Internal Medicine; Visit Provider Internal Medicine | DX: I35.2 Nonrheumatic aortic (valve) stenosis with insufficiency (principal); I36.1 Nonrheumatic tricuspid (valve) insufficiency; I34.81 Nonrheumatic mitral (valve) annulus calcification; I51.89 Other ill-defined heart diseases | CPT/HCPCS: 93306 ==

== ENCOUNTER → 2023-12-15 13:50 | Outpatient (BNV) | payer MEDICARE, OTHER, SELFPAY | PROVIDERS: Admitting Provider Physician Assistant; Emergency Provider Emergency Medicine; PCP Internal Medicine; Visit Provider Internal Medicine | DX: R00.1 Bradycardia, unspecified (principal); I35.0 Nonrheumatic aortic (valve) stenosis; F03.90 Unspecified dementia, unspecified severity, without behavioral disturbance, psychotic disturbance, mood disturbance, and anxiety; U07.1 COVID-19 | CPT/HCPCS: 99223; 99233 ==

== ENCOUNTER → 2023-12-15 13:50 | Outpatient (BNV) | payer MEDICARE, OTHER, SELFPAY | PROVIDERS: Admitting Provider Physician Assistant; Emergency Provider Emergency Medicine; PCP Internal Medicine; Visit Provider Internal Medicine | DX: R00.1 Bradycardia, unspecified (principal); I35.0 Nonrheumatic aortic (valve) stenosis; F03.90 Unspecified dementia, unspecified severity, without behavioral disturbance, psychotic disturbance, mood disturbance, and anxiety; U07.1 COVID-19 | CPT/HCPCS: 99223; 99232; 99239 ==

== ENCOUNTER 2023-12-26 16:41 | Inpatient (IN) | payer MEDICARE, OTHER, SELFPAY ==
--- NOTE | ~2023-12-26 | XR_ITS ---
EXAMINATION: XR CHEST CLINICAL INFORMATION: Lethargic COMPARISON: Chest radiograph December 15, 2023 TECHNIQUE: 2 views of the chest FINDINGS: The heart and mediastinal borders are normal. No focal consolidation. No pleural effusion. Gaseous distention of bowel loops in the left upper quadrant. XR/XR chest 2V IMPRESSION: No focal consolidation or pleural effusion. Gaseous distention of bowel loops in the left upper quadrant. Electronically signed by: Denys Desouza MD 12/26/2023 06:40 PM EDT
--- NOTE | ~2023-12-26 | XR_ITS ---
EXAMINATION: XR KNEE, LEFT CLINICAL INFORMATION: Pain. COMPARISON: 05/14/2023 TECHNIQUE: AP and lateral views of the left knee. FINDINGS: Bones are osteopenic. Moderate medial and patellofemoral compartment osteophytes and joint space narrowing and marginal osteophytes. Small joint effusion. Mild lateral compartment osteoarthritis. Soft tissue swelling. Atherosclerotic calcifications in the popliteal artery. XR/XR knee LT 2V IMPRESSION: 1. 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 Mild lateral compartment osteoarthritis. 2. Small joint effusion. Electronically signed by: Tommy Gonzalez MD 12/28/2023 03:14 PM EDT
--- NOTE | ~2023-12-26 | XR_ITS ---
EXAMINATION: XR WRIST, LEFT CLINICAL INFORMATION: Pain. COMPARISON: None available. TECHNIQUE: PA, lateral, oblique, and scaphoid views of the left wrist. FINDINGS: Bones are osteopenic. Mild osteoarthritis at the radiocarpal, triscaphe, and first CMC joints. No acute fractures. There is an old osseous fragment at tip of the ulnar styloid which may correspond to a chronic nonunited fracture fragment. Soft tissue tissues are swollen. XR/XR wrist LT 2V IMPRESSION: 1. No acute fracture or malalignment. 2. 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 3. Osteopenia. Electronically signed by: Tommy Gonzalez MD 12/28/2023 03:18 PM EDT
--- NOTE | 2023-12-26 16:50 | ED_ITS ---
HPI - General Adult General Chief complaint: Weakness Stated complaint: lethargic Time Seen by Provider: 12/26/23 16:50 Source: patient, family (patient's daughter and son) and EMS Mode of arrival: EMS Limitations: no limitations History of Present Illness ED Provider: Anny Mejia PA-C HPI narrative: Patient is an 83 year old assigned female at with a history of aortic stenosis and dementia presenting to the emergency department today with worsening weakness. Patient's daughter and son state that the patient was hospitalized at [facility] [place] on 12/15/2023 for a UTI and COVID-19. They state that the patient was improving significantly and got discharged to [facility] where they took shifts staying with her there to ensure she was getting the care she needed. They state they had to miss a day and when they came back the next day, the patient was significantly more weak, not taking anything by mouth, and feeling generally unwell. Patient states that her mouth and throat hurt. Onset (ago): day(s) Relieving factors: none Exacerbating factors: none Treatments prior to arrival: none Related Data Home Medications ?Medication ?Instructions ?Recorded ?Confirmed hydralazine 50 mg tablet 50 mg PO BID 02/10/22 12/15/23 lisinopril 20 mg tablet 40 mg PO DAILY 02/10/22 12/15/23 memantine 5 mg tablet 5 mg PO BID 02/10/22 12/15/23 Previous Rx's ?Medication ?Instructions ?Recorded levofloxacin 500 mg tablet 500 mg PO Q24H 4 days #0 tabs 12/18/23 Allergies Allergy/AdvReac Type Severity Reaction Status Date / Time cephalexin Allergy Unknown Verified 12/26/23 17:02 hydrochlorothiazide Allergy Unknown Verified 12/15/23 11:11 Sulfa (Sulfonamide Allergy Unknown Verified 12/15/23 11:11 Antibiotics) trimethoprim Allergy Unknown Verified 12/15/23 11:11 Review of Systems 2 Constitutional: Constitutional: Reports no additional constitutional complaints, Denies chills, Denies fever(s) and Denies night sweats Eyes: Eyes: Reports no additional eye complaints, Denies blurry vision, Denies change in vision, Denies diplopia, Denies eye discharge, Denies loss of vision and Denies eye pain ENT: Denies dizziness Cardiovascular: Cardiovascular: Reports no additional cardiovascular complaints, Denies chest pain, Denies lightheadedness, Denies Loss of Consciousness and Denies dyspnea Respiratory: Respiratory: Reports no additional respiratory complaints and Denies dyspnea Gastrointestinal: Gastrointestinal: Reports no additional gastrointestinal complaints, Denies abdominal pain, Denies melena, Denies hematochezia, Denies change in bowel habits and Denies change in stool character Genitourinary: Genitourinary: Denies hematuria, Denies urinary frequency, Denies dysuria, Denies urinary incontinence, Denies urinary hesitancy and Denies urinary urgency Musculoskeletal: Musculoskeletal: Reports no additional musculoskeletal complaints, Denies numbness and Denies tingling Neurologic: Reports confusion (per patient's baseline), Denies dizziness, Denies loss of vision, Denies numbness and Denies tingling Psychiatric: Psychiatric: Reports no additional psychiatric complaints and Reports confusion (per patient's baseline) Endocrine: Endocrine: Reports no additional endocrine complaints Hematologic/Lymphatic: Hematologic/Lymphatic: Reports no additional hematologic/lymphatic complaints Allergic/Immunologic: Allergic/Immunologic: Reports no additional allergic/immunologic complaints PMFSH Past Medical History Attestation statement: The following information was validated with the patient. (all information validated with the patient's daughter and son) Source: old records reviewed and obtained from family (patient's daughter and son provided additional history and confirmed the history provided by the patient.) Medical History Paroxysmal A-fib HTN (hypertension) HLD (hyperlipidemia) Dementia, unspecified, without behavioral disturbance Social History Social History Household Members: Other Housing: Assisted Living Facility Do you presently have visiting nurse or other home services: No Alcohol intake: former Patient Tobacco Use Status: Former Tobacco user Tobacco use type: Cigarette Years Smoked: 10 Smoked in Last 30 Days: No Second Hand Smoke Exposure: No Use of substances other than those prescribed or required for medical reasons: No Advance Directives: Yes Advance Directives on File: Yes Advance Directives Date on File: 05/18/23 service: No Physical Exam ED Vital Signs: Vital Signs - 24 hr 12/26/23 16:59 12/26/23 18:26 12/26/23 20:27 Temperature 98.1 F 100.0 F 100.2 F Pulse Rate 99 89 Respiratory Rate 16 16 Blood Pressure 103/46 L 109/59 L Pulse Oximetry 95 97 Oxygen Delivery Method Room Air Room Air BMI result Body Mass Index 24.9 Const General: cooperative, no acute distress, alert, awake and confusion (per patient's baseline) Nutritional Appearance: well nourished Orientation/consciousness: confusion (per patient's baseline) Limitations: no limitations HENMT Head: Yes normal to inspection and Yes atraumatic Ears: hearing grossly normal bilaterally and external ears normal General nose exam: Normal external nose present, no nasal discharge noted and no epistaxis Face and sinus: Yes normal facial exam, No abrasion and No laceration Mouth: Normal oral and palatal mucosa present, no drooling and no muffled voice Eyes General: appearance normal, both eyes and all related structures Periorbital: periorbital findings normal Eyelids: Yes eyelids normal Conjunctivae: conjunctivae normal Pupils: Equal, round and reactive pupils present EOM: EOMs intact bilaterally Neck Neck: Yes normal visual inspection, Yes full ROM and Yes no lymphadenopathy Chest Chest palpation & inspection: normal inspection of the chest Resp Effort & Inspection: normal respiratory effort and able to speak in complete sentences GI Inspection: Yes normal to inspection Back/Spine/Pelvis Other: redness present to the buttock and low back Neuro General: moves all extremities and confusion (per patient's baseline) Cranial nerves: Yes Equal, round and reactive pupils present Cognition (Neuro): normal cognition Extrem General: Yes normal to inspection, Yes full ROM and Yes capillary refill normal Psych Appearance: grossly normal Mental Status: mental status grossly normal Affect: normal affect Attitude: cooperative Thought process: Normal thought process present Thought content: Normal thought content present Insight: Good insight present (Psych) Medications Administered Discontinued Medications Generic Name Dose Route Start Last Admin Trade Name Freq PRN Reason Stop Dose Admin Levofloxacin 500 mg in 100 mls @ 100 mls/hr 12/26/23 18:01 12/26/23 20:30 Levaquin IV 12/26/23 19:00 Infused ONCE ONE Infusion Acetaminophen 1,000 mg in 100 mls @ 400 mls/hr 12/26/23 18:33 12/26/23 20:30 Ofirmev IV 12/26/23 18:47 400 mls/hr ONCE ONE Administration Medical Decision Making Medical Decision Making MDM Narrative: Patient is an 83 year old assigned female at with a history of aortic stenosis and dementia presenting to the emergency department today with weakness and feeling generally unwell. Patient's physical exam was as noted in the physical exam portion of this note. Patient's blood work was unremarkable. Patient's urine showed a UTI. Patient's EKG was unremarkable. Patient's chest x- ray showed no acute process. I spoke to the hospitalist team who agreed to admission for continued rehydration and IV antibiotic for her UTI. Patient's clinical presentation is not consistent with sepsis (@2100). I explained my physical exam findings as well as all test results to the patient and the patient's children. I answered all questions asked by the patient and the patient's children. Patient and the patient's children verbalized agreement and understanding with this treatment plan and admission. Differential Diagnosis Differential Diagnoses: The differential diagnosis associated with the presentation includes Dehydration UTI COVID-19 Influenza Lethargy Admission/Observation Consideration of admission/observation: Escalation of care including admission/observation considered Patient admitted. Consult Healthcare Provider Management of the patient was discussed with: Hospitalist (agreed to admission.) Lab Data [facility] Lab Attestation statement: I reviewed the patient's lab results. My interpretation of these results are in the MDM Rationale portion of this note. 12/26/23 17:39 12/26/23 17:39 Labs: Lab Results 12/26/23 12/26/23 12/26/23 Range/Units 17:39 18:18 18:37 WBC 10.5 (4.8-10.8) X10*3/uL RBC 4.40 (4.20-5.50) X10*6/uL Hgb 13.5 (12.0-16.0) g/dl Hct 38.8 (37.0-47.0) % MCV 88.2 (80.0-98.0) fL MCH 30.7 (27.0-33.0) pg MCHC 34.8 (31.0-35.0) g/dl RDW 13.7 (11.0-16.0) % Plt Count 268 D (160-400) X10*3/uL MPV 10.5 (9.4-12.3) fL Immature Gran % (Auto) 0.6 H (0.0-0.4) % Neut % (Auto) 83.8 H (45-73) % Lymph % (Auto) 4.1 L (20-40) % [place] % (Auto) 11.2 H (2-11) % Eos % (Auto) 0.0 (0-4) % Baso % (Auto) 0.3 (0-2) % Lymph # (Auto) 0.4 L (1.2-4.9) X10*3/uL [place] # (Auto) 1.2 (0.1-1.2) X10*3/uL Eos # (Auto) 0.0 (0.0-0.4) X10*3/uL Baso # (Auto) 0.0 (0.0-0.2) X10*3/uL Abs Immat Gran (auto) 0.06 H (0.00-0.03) X10*3/uL Absolute Neuts (auto) 8.8 H (2.0-8.3) x10*3/uL Absolute Nucleated RBC 0.000 (0.0-0.012) X10*3/uL Nucleated RBC % (auto) 0.0 (0.0-0.2) /100WBC Sodium 131 L (135-145) mmol/L Potassium 4.2 (3.3-5.1) mmol/L Chloride 99 (96-108) mmol/L Carbon Dioxide 22 (22-29) mmol/L Anion Gap 14 (12-20) BUN 21 H (9-16) mg/dL Creatinine 0.72 (0.5-1.4) mg/dL Estim Creat Clear Calc 51.3 Estimated GFR > 60 Random Glucose 139 H (60-115) mg/dL Calcium 9.4 (8.4-10.2) mg/dL Magnesium 1.9 (1.6-2.6) mg/dL Total Bilirubin 1.3 H (0.0-1.0) mg/dL AST 21 (5-31) U/L ALT 15 (0-31) U/L Alkaline Phosphatase 92 (39-117) U/L Troponin I High Sens 11.2 D (<3.5-17.0) ng/L Total Protein 7.0 (6.5-8.0) g/dL Albumin 3.4 L (3.5-5.0) g/dL Urine Color Dark Yellow Urine Appearance Turbid Urine pH 7.0 (5.0-9.0) Ur Specific [place] 1.020 (1.005-1.025) Urine Protein 100 (2+) H (Neg-Trace) mg/dL Urine Glucose (UA) Negative (Negative) mg/dL Urine Ketones Negative (Negative) mg/dL Urine Blood Small (1+) H (Negative) Urine Nitrite Negative (Negative) Ur Leukocyte Esterase Large (3+) H (Negative) Urine RBC 11-20 H (0-2) /HPF Urine WBC >50 H (0-5) /HPF Ur Squamous Epith Cells 11-20 (0-2) /HPF Urine Bacteria 2+ (None Seen) Hyaline Casts 11-20 (0-2) /LPF Influenza Type A ([place]) Negative (Negative) Influenza Type A (PCR) NEGATIVE (Negative) Influenza Type B ([place]) Negative (Negative) Influenza Type B (PCR) NEGATIVE (Negative) Influenza A & B Note See Note RSV RNA Qual (PCR) NEGATIVE (Negative) SARS-CoV-2 RNA (RT-PCR) POSITIVE A (Negative) S. pyogenes GrpA [place] Negative (Negative) Independent Interpretation I performed an independent interpretation of an: EKG and Plain X-Ray Interpretation: My interpretation is in agreement with the radiologist's impression of this imaging study. - EXAMINATION: XR CHEST CLINICAL INFORMATION: Lethargic COMPARISON: Chest radiograph December 15, 2023 TECHNIQUE: 2 views of the chest FINDINGS: The heart and mediastinal borders are normal. No focal consolidation. No pleural effusion. Gaseous distention of bowel loops in the left upper quadrant. XR/XR chest 2V IMPRESSION: No focal consolidation or pleural effusion. Gaseous distention of bowel loops in the left upper quadrant. Electronically signed by: Denys Desouza MD 12/26/2023 06:40 PM EDT RP Dictated By: Denys Desouza MD Signed By: Electronically signed by Denys Desouza MD 12/26/23 1840 - Vent. Rate: 096 BPM Atrial Rate: 096 BPM P-R Int: 170 ms QRS Dur: 086 ms QT Int: 366 ms P-R-T Axes: 081 002 021 degrees QTc Int: 462 ms Normal sinus rhythm Normal ECG When compared with ECG of 15-DEC-2023 11:28, Vent. rate has increased BY 49 BPM DD/ 1725 Radiology Impression Discussion of test interpretation with radiology: I have reviewed the radiologist's reading. Independent Historian Clinical information obtained from an independent historian. History obtained from or confirmed by: EMS (EMS provided additional history and confirmed the history provided by the patient.) and Other (patient's children provided additional history and confirmed the history provided by the patient and the patient's children) Critical Care Time Critical Care Time Critical Care Time: Yes Total Critical Care Time: 34 Attestation: I spent 34 minutes of Critical Care Time with this patient. This does not include time spent on separately reported billable procedures. Discharge Plan Discharge Clinical Impression: Urinary tract infection, COVID-19 Patient Disposition: Admitted As Inpatient
--- NOTE | 2023-12-26 16:51 | ECG_ITS ---
Test Reason : LETHARGIC Blood Pressure : / mmHG Vent. Rate : 096 BPM Atrial Rate : 096 BPM P-R Int : 170 ms QRS Dur : 086 ms QT Int : 366 ms P-R-T Axes : 081 002 021 degrees QTc Int : 462 ms Normal sinus rhythm Normal ECG When compared with ECG of 15-DEC-2023 11:28, Vent. rate has increased BY 49 BPM Referred By: Anny Mejia Electronically Signed By:JESSICA TRINIDAD
[2023-12-26 16:59] VITALS: BP 103/46; BP 116/78; PULSE 109; PULSE 99; RESP 16; TEMP 36.7; O2SAT 92; O2SAT 95; BMI 24.9
[2023-12-26 17:45] LABS: MANUAL DIFF FLAG NO
[2023-12-26 17:46] LABS: Basophils Percent Auto 0.3 % (0-2); Hematocrit 38.8 % (37.0-47.0); Hemoglobin 13.5 g/dl (12.0-16.0); Imm Gran Abs Auto 0.06 X10*3/uL (0.00-0.03); Imm Gran Pct Auto 0.6 % (0.0-0.4); Lymphocytes Absolute Auto 0.4 X10*3/uL (1.2-4.9); Lymphocytes Percent Auto 4.1 % (20-40); Mean Corpuscular HGB Conc 34.8 g/dl (31.0-35.0); Mean Corpuscular Hemoglobin 30.7 pg (27.0-33.0); Mean Corpuscular Volume 88.2 fL (80.0-98.0); Mean Platelet Volume 10.5 fL (9.4-12.3); Monocytes Absolute Auto 1.2 X10*3/uL (0.1-1.2); Monocytes Percent Auto 11.2 % (2-11); Neutrophils Absolute Auto 8.8 x10*3/uL (2.0-8.3); Neutrophils Percent Auto 83.8 % (45-73); Platelet Count 268 X10*3/uL (160-400); Red Cell Distribution Width 13.7 % (11.0-16.0); White Blood Count 10.5 X10*3/uL (4.8-10.8)
[2023-12-26 18:00] LABS: Alanine Aminotransferase 15 U/L (0-31); Albumin Level 3.4 g/dL (3.5-5.0); Alkaline Phosphatase 92 U/L (39-117); Anion Gap 14 (12-20); Aspartate Amino Transferase 21 U/L (5-31); Bilirubin Total 1.3 mg/dL (0.0-1.0); Blood Urea Nitrogen 21 mg/dL (9-16); Calcium 9.4 mg/dL (8.4-10.2); Carbon Dioxide 22 mmol/L (22-29); Chloride 99 mmol/L (96-108); Creatinine Clr Calc Pharmacy 51.3; Estimated Glomerular Filt Rate > 60; Glucose Random 139 mg/dL (60-115); Magnesium 1.9 mg/dL (1.6-2.6); Potassium 4.2 mmol/L (3.3-5.1); Sodium 131 mmol/L (135-145)
[2023-12-26 18:06] LABS: Troponin-I High Sensitivity 11.2 ng/L (<3.5-17.0)
[2023-12-26 18:22] LABS: Influenza A PCR NEGATIVE (Negative); Influenza B PCR NEGATIVE (Negative); Resp Syncy Virus RNA Qual PCR NEGATIVE (Negative); SARS COV2 PCR INHOUSE POSITIVE (Negative)
[2023-12-26 18:26] VITALS: TEMP 37.8
[2023-12-26 18:40] LABS: IDNOW Serial# 08D9AD1C; IDNOW Serial# 152EDE1D; Influenza A Negative (Negative); Influenza B2 Negative (Negative); Strep A Nucleic Acid Negative (Negative)
[2023-12-26 18:43] LABS: Appearance Urine Turbid; Color Urine Dark Yellow; Glucose Urine UA Negative (Negative); Leukocyte Esterase Urine Large (3+) (Negative); Nitrite Urine Negative (Negative); UMIC TRIGGER UACC YES; Urine Blood Small (1+) (Negative); Urine Ketones Negative (Negative); Urine Protein 100 (2+) mg/dL (Neg-Trace)
[2023-12-26 18:55] LABS: Bacteria Urine 2+ (None Seen); UACC Culture Trigger YES; WBC Urine >50 /HPF (0-5)
[2023-12-26] MEDS: levoFLOXacin/D5W 500 MG/100 ML PIGGYBACK 100 MG IV (18:59)
--- NOTE | 2023-12-26 18:59 | PC.NURSE ---
confirmed with primary RN no cultures needed per provider. ABX hung.
[2023-12-26 20:27] VITALS: BP 109/59; PULSE 89; RESP 16; TEMP 37.9; O2SAT 97
[2023-12-26] MEDS: Acetaminophen 1,000 MG/100 ML PIGGYBACK 400 MG IV (20:30)
--- NOTE | 2023-12-26 20:30 | MHC.EDTECH ---
This tech took over care of patient at 1900,rounds and vitals completed,rectal temp of 100.2,RN was made aware,Patient bottom is very red all over,cream and foam dressing applied,groan area very red and raw,pure-wick applied to keep patient clean and dry. FRANDY Alicea at bedside with this tech
--- NOTE | 2023-12-26 20:38 | PC.NURSE ---
Patient cleaned w/ EDT Shannan w/ daughter at bedside. Pictures taken of patient's wound and sent to provider and primary RN to be added to chart. Coccyx area reddened w/ nonblanachable areas. One area deep purple, questionable DTI, Allevyn foam & barrier cream applied. Periarea very reddened/excoriated, Barrier cream and purewick applied. Bilat heels reddened but blanchable, L worse than R. small pink foam applied to L heel. RN paper supervisor called for waffle boots, heel pressure to be offloaded w/ blankets.
--- NOTE | 2023-12-26 21:45 | PM.IMHP ---
History of Present Illness Date of Service: 12/26/23 Chief Complaint: weakness 83F PMH pafib, htn, hld, aortic stenosis, unspecified dementia presented with weakness. patient was admitted to [facility] [place]/23 - 12/18/23 for covid, bradycardia, and uti. was discharged on levaquin, covid was mostly asymptomatic, brdaycardia resolved after stopping metoprolol. was discharged to SNF. now returning for increased weakness, decreased po intake. in ED low grade temp of 100.2, signs of dehydration with bun of 21. ua with pyuria, bacturia. Review of Systems Review of Systems: Yes all other systems are reviewed and are negative [facility] Medical History Paroxysmal A-fib HTN (hypertension) HLD (hyperlipidemia) Dementia, unspecified, without behavioral disturbance Social History Household Members: Other Housing: Assisted Living Facility Do you presently have visiting nurse or other home services: No Alcohol intake: former Patient Tobacco Use Status: Former Tobacco user Tobacco use type: Cigarette Years Smoked: 10 Smoked in Last 30 Days: No Second Hand Smoke Exposure: No Use of substances other than those prescribed or required for medical reasons: No Advance Directives: Yes Advance Directives on File: Yes Advance Directives Date on File: 05/18/23 service: No Meds Allergies Allergy/AdvReac Type Severity Reaction Status Date / Time cephalexin Allergy Unknown Verified 12/26/23 17:02 hydrochlorothiazide Allergy Unknown Verified 12/15/23 11:11 Sulfa (Sulfonamide Allergy Unknown Verified 12/15/23 11:11 Antibiotics) trimethoprim Allergy Unknown Verified 12/15/23 11:11 Active Medications: Current Medications Acetaminophen (Acetaminophen 325 Mg Tablet) 650 mg PO Q6H PRN PRN Reason: Pain, Mild (Pain Scale 1-3), fever or headache Calcium Carbonate (Calcium Carbonate 750 Mg Tab.Chew) 750 mg PO Q4H PRN PRN Reason: Heartburn Enoxaparin Sodium (Enoxaparin Sodium 40 Mg/0.4 Ml Syringe) 40 mg SUBCUT Q24H QUE Levofloxacin (Levaquin) 500 mg in 100 mls @ 100 mls/hr IV Q24H QUE Sodium Chloride (Ns) 1,000 mls @ 100 mls/hr IVCONT .Q10H [facility] Stop: 12/27/23 07:44 Magnesium Hydroxide (Milk Of Magnesia 30 Ml Oral.Susp) 30 ml PO DAILY PRN PRN Reason: Constipation Melatonin (Melatonin 3 Mg Tablet) 6 mg PO BEDTIME PRN PRN Reason: Insomnia Sodium Chloride (0.9 % Sodium Chloride Flush 3 Ml Syringe) 3 ml IVFLUSH QSHIFT [facility] Home Medications ?Medication ?Instructions ?Recorded ?Confirmed ?Last Taken ?Type hydralazine 50 mg tablet 50 mg PO BID 02/10/22 12/15/23 12/15/23 09:00 History lisinopril 20 mg tablet 40 mg PO DAILY 02/10/22 12/15/23 12/15/23 09:00 History memantine 5 mg tablet 5 mg PO BID 02/10/22 12/15/23 12/15/23 09:00 History Physical Exam Vital Signs and Narrative: Vital Signs: Last Vital Signs Temp 100.2 F 12/26/23 20:27 Pulse 89 12/26/23 20:27 Resp 16 12/26/23 20:27 BP 109/59 L 12/26/23 20:27 Pulse Ox 97 12/26/23 20:27 O2 Del Method Room Air 12/26/23 20:27 BMI result Body Mass Index 24.9 General: lethargic, frail appearing, no acute distress Resp: CTA bilateral, no accessory muscles used CVS: S1,S2,RRR, murmur GI: soft, non tender, non distended Neuro: motor grossly intact Results Labs 12/26/23 17:39 12/26/23 17:39 Labs: Laboratory Results - last 24 hr 12/26/23 12/26/23 12/26/23 17:39 18:18 18:37 MCV 88.2 MCH 30.7 MCHC 34.8 RDW 13.7 Plt Count 268 D MPV 10.5 Immature Gran % (Auto) 0.6 H Neut % (Auto) 83.8 H Lymph % (Auto) 4.1 L [place] % (Auto) 11.2 H Eos % (Auto) 0.0 Baso % (Auto) 0.3 Lymph # (Auto) 0.4 L [place] # (Auto) 1.2 Eos # (Auto) 0.0 Baso # (Auto) 0.0 Abs Immat Gran (auto) 0.06 H Absolute Neuts (auto) 8.8 H Absolute Nucleated RBC 0.000 Nucleated RBC % (auto) 0.0 Anion Gap 14 Estim Creat Clear Calc 51.3 Estimated GFR > 60 Random Glucose 139 H Calcium 9.4 Magnesium 1.9 Total Bilirubin 1.3 H AST 21 ALT 15 Alkaline Phosphatase 92 Troponin I High Sens 11.2 D Total Protein 7.0 Albumin 3.4 L Urine Color Dark Yellow Urine Appearance Turbid Urine pH 7.0 Ur Specific [place] 1.020 Urine Protein 100 (2+) H Urine Glucose (UA) Negative Urine Ketones Negative Urine Blood Small (1+) H Urine Nitrite Negative Ur Leukocyte Esterase Large (3+) H Urine RBC 11-20 H Urine WBC >50 H Ur Squamous Epith Cells 11-20 Urine Bacteria 2+ Hyaline Casts 11-20 Influenza Type A ([place]) Negative Influenza Type A (PCR) NEGATIVE Influenza Type B ([place]) Negative Influenza Type B (PCR) NEGATIVE Influenza A & B Note See Note RSV RNA Qual (PCR) NEGATIVE SARS-CoV-2 RNA (RT-PCR) POSITIVE A S. pyogenes GrpA [place] Negative Imaging Radiologist's Impressions: Impressions Chest X-Ray 12/26/23 16:51 IMPRESSION: No focal consolidation or pleural effusion. Gaseous distention of bowel loops in the left upper quadrant. Electronically signed by: Denys Desouza MD 12/26/2023 06:40 PM EDT RP Assessment and Plan (1) Dementia, unspecified, without behavioral disturbance: Status: Acute Plan 83F PMH pafib, htn, hld, aortic stenosis, unspecified dementia presented with weakness acute metabolic encephalopathy due to recurrent uti recent pseudomonas, will treat with levaquin, follow up cultures dehydration 1L Ns, monitor covid pcr positive doubt active infection, likely residual from previous reported history of pafib currently in sinus, not on AC moderate aortic stenosis monitor closely while hydrating htn hydralazine, lisinopirl unspecified dementia memantine dvt prophylaxis - lovenox full code pateint with recurrent uti causing weakness, needs iv abx and inpatient treatment for atleast 2 midnights while awaiting culture results and defervesence Quality Stroke Does the patient have a stroke diagnosis?: No VTE Prior VTE?: No VTE Risk Level:: Medical - moderate - high VTE Device Contraindication: Treatment Not Indicated VTE Drug Contraindication: N/A - Med Ordered
[2023-12-26 22:28] VITALS: BP 132/60; PULSE 68; RESP 16; TEMP 37.3; O2SAT 97
--- NOTE | 2023-12-26 22:28 | MHC.EDTECH ---
Hourly rounds and vitals completed,patient is resting quietly,belongings list completed and copy placed in chart.
--- OUTSIDE RECORDS SUMMARY | 2023-12-27 00:41 | XMS_ITS ---
Author Organization [facility] Address [address] [facility] [address] [place] [address] Care Team Providers Care Obstetrical Nurse Name Role Phone Migration, Provider Unavailable Unavailable REASON FOR VISIT EMR-Jabari Encounters Encounter Location Date [facility] [address] [place] [address] 03/29/2023 Provider Migration Plan Of Treatment No Information Progress Notes * Kiki MONTES ADOB: [birth year] (83 yo F)Acc No.[id number]:03/29/2023 Patient:?DEBORAKiki :1940???Age:82 Y???Sex:Female Address:[address] [place] [address] [place], [address] Subjective: * Chief Complaints: * ???EMR-Jabari * Medical History:? * Surgical History:? * Hospitalization/Major Diagno stic Procedure:? * Medications:? Objective: * Vitals:? * Physical Examination:? Assessment: Plan: * Treatment: * Procedure Codes:? * * Date:?
--- OUTSIDE RECORDS SUMMARY | 2023-12-27 00:42 | XMS_ITS | Patient Health Record ---
Author Organization [facility] Address [address] [facility] [facility] [facility] [place] [address] Care Team Providers Care Tank Systems Maintainer Name Role Phone Migration, Provider Unavailable Unavailable Reason For Referral No Information Encounters Encounter Location Date Provider Diagnosis [facility] [address] [place] [address] 03/28/2023 Provider Migration [facility] [address] [place] [address] 03/29/2023 Provider Migration Plan Of Treatment No Information
--- OUTSIDE RECORDS SUMMARY | 2023-12-27 00:42 | XMS_ITS ---
Author Organization [facility] Address [address] [facility] [place]NOTE 2[facility] [address] [place] [address] Care Team Providers Care Garment Steamer Name Role Phone Migration, Provider Unavailable Unavailable REASON FOR VISIT EMR-Jabari Encounters Encounter Location Date Provider Diagnosis [facility] [address] [place] [address] 03/28/2023 Provider Migration Plan Of Treatment No Information Progress Notes * Kiki MONTES ADOB: [birth year] (83 yo F)Acc No.[id number]:03/28/2023 Patient:?DEBORAKiki :1940???Age:82 Y???Sex:Female Address:[address] [place] [address], [id number] Subjective: * Chief Complaints: * ???EMR-Jabari * Medical History:? * Surgical History:? * Hospitalization/Major Diagno stic Procedure:? * Medications:? Objective: * Vitals:? * Physical Examination:? Assessment: Plan: * Treatment: * Procedure Codes:? * * Date:?
[2023-12-27] MEDS: 0.9 % Sodium Chloride Flush 3 ML SYRINGE IVFLUSH ×2 (00:45→08:07)
[2023-12-27] MEDS: 0.9 % Sodium Chloride 1,000 ML 100 ML IVCONT (00:45)
[2023-12-27 04:57] VITALS: BP 169/59; PULSE 62; RESP 18; TEMP 36; O2SAT 97
[2023-12-27] MEDS: Enoxaparin Sodium 40 MG/0.4 ML SYRINGE SUBCUT (08:05)
[2023-12-27 08:06] VITALS: BP 155/82
[2023-12-27] MEDS: Memantine HCl 5 MG TABLET PO ×2 (08:06→21:28)
[2023-12-27] MEDS: hydrALAZINE HCl 50 MG TABLET PO (08:06)
[2023-12-27] MEDS: lisinopriL 20 MG TABLET PO (08:06)
--- NOTE | 2023-12-27 08:50 | PC.NURSE ---
update to daughter on phone
--- NOTE | 2023-12-27 09:17 | PHA.MEDREC ---
Addendum entered by Chelsea Christiansen RPh 12/27/23 09:31: [facility] REVIEWED Original Note: Pharmacy Consult ? Medication Reconciliation Pharmacy has completed the medication reconciliation. List faxed from [facility].
--- NOTE | 2023-12-27 09:41 | HO.PM.IMPN ---
Subjective Subjective Date of Service: 12/27/23 Interval History: seen and examined this AM offers no complaints Review of Systems Negative except HPI/interval history. Physical Exam Vital Signs: Vital Signs: Last Vital Signs Temp 96.8 F 12/27/23 04:57 Pulse 62 12/27/23 04:57 Resp 18 12/27/23 04:57 BP 155/82 H 12/27/23 08:06 Pulse Ox 97 12/27/23 04:57 O2 Del Method Room Air 12/27/23 04:57 BMI result Body Mass Index 24.9 Const: Other: General - no acute distress, appears comfortable Cardiovascular - regular rate and rhythm, S1-S2 Lungs - normal respiratory effort, clear to auscultation bilaterally, no wheezing Abdomen - soft, nontender, no rebound or guarding Extremities - no edema bilaterally Neuro - awake and alert, no focal deficits Objective Data Active Medications Acetaminophen (Acetaminophen 325 Mg Tablet) 650 mg PO Q6H PRN PRN Reason: Pain, Mild (Pain Scale 1-3), fever or headache Calcium Carbonate (Calcium Carbonate 750 Mg Tab.Chew) 750 mg PO Q4H PRN PRN Reason: Heartburn Enoxaparin Sodium (Enoxaparin Sodium 40 Mg/0.4 Ml Syringe) 40 mg SUBCUT Q24H [facility] Last Admin: 12/27/23 08:05 Dose: 40 mg Documented By: KENNEDY Hydralazine HCl (Hydralazine Hcl 50 Mg Tablet) 50 mg PO BID [facility]; Protocol Last Admin: 12/27/23 08:06 Dose: 50 mg Documented By: KENNEDY Levofloxacin (Levaquin) 500 mg in 100 mls @ 100 mls/hr IV Q24H [facility] Lisinopril (Lisinopril 20 Mg Tablet) 20 mg PO DAILY [facility]; Protocol Last Admin: 12/27/23 08:06 Dose: 20 mg Documented By: KENNEDY Magnesium Hydroxide (Milk Of Magnesia 30 Ml Oral.Susp) 30 ml PO DAILY PRN PRN Reason: Constipation Melatonin (Melatonin 3 Mg Tablet) 6 mg PO BEDTIME PRN PRN Reason: Insomnia Memantine (Memantine Hcl 5 Mg Tablet) 5 mg PO BID [facility] Last Admin: 12/27/23 08:06 Dose: 5 mg Documented By: KENNEDY Sodium Chloride (0.9 % Sodium Chloride Flush 3 Ml Syringe) 3 ml IVFLUSH QSHIFT [facility] Last Admin: 12/27/23 08:07 Dose: 3 ml Documented By: KENNEDY Labs 12/26/23 17:39 12/26/23 17:39 Labs: Laboratory Results - last 24 hr 12/26/23 12/26/23 12/26/23 17:39 18:18 18:37 MCV 88.2 MCH 30.7 MCHC 34.8 RDW 13.7 Plt Count 268 D MPV 10.5 Immature Gran % (Auto) 0.6 H Neut % (Auto) 83.8 H Lymph % (Auto) 4.1 L Slope % (Auto) 11.2 H Eos % (Auto) 0.0 Baso % (Auto) 0.3 Lymph # (Auto) 0.4 L Slope # (Auto) 1.2 Eos # (Auto) 0.0 Baso # (Auto) 0.0 Abs Immat Gran (auto) 0.06 H Absolute Neuts (auto) 8.8 H Absolute Nucleated RBC 0.000 Nucleated RBC % (auto) 0.0 Anion Gap 14 Estim Creat Clear Calc 51.3 Estimated GFR > 60 Random Glucose 139 H Calcium 9.4 Magnesium 1.9 Total Bilirubin 1.3 H AST 21 ALT 15 Alkaline Phosphatase 92 Troponin I High Sens 11.2 D Total Protein 7.0 Albumin 3.4 L Urine Color Dark Yellow Urine Appearance Turbid Urine pH 7.0 Ur Specific [place]romas 1.020 Urine Protein 100 (2+) H Urine Glucose (UA) Negative Urine Ketones Negative Urine Blood Small (1+) H Urine Nitrite Negative Ur Leukocyte Esterase Large (3+) H Urine RBC 11-20 H Urine WBC >50 H Ur Squamous Epith Cells 11-20 Urine Bacteria 2+ Hyaline Casts 11-20 Influenza Type A (KAROLINA) Negative Influenza Type A (PCR) NEGATIVE Influenza Type B (KAR[place]INA) Negative Influenza Type B (PCR) NEGATIVE Influenza A & B Note See Note RSV RNA Qual (PCR) NEGATIVE SARS-CoV-2 RNA (RT-PCR) POSITIVE A S. pyogenes GrpA KAROLINA Negative Microbiology Microbiology Results: Microbiology 12/26/23 18:37 Urine Culture - Preliminary Urine Catheterized - Straight Catheter No growth to date. Assessment and Plan (1) Urinary tract infection: Status: Acute Plan 83F PMH pafib, htn, hld, aortic stenosis, unspecified dementia presented with weakness acute metabolic encephalopathy due to recurrent uti recent pseudomonas f/u cultures levaquin day 2 dehydration s/p 1L, repeat lbs penidng covid pcr positive doubt active infection, likely residual from previous reported history of pafib currently in sinus, not on AC moderate aortic stenosis monitor closely while hydrating htn hydralazine, lisinopirl unspecified dementia memantine dvt prophylaxis - lovenox full code reasons for continued hospitalization: on going treatment for psuedomonas uti Quality Stroke Does the patient have a stroke diagnosis?: No VTE Prior VTE?: No VTE Risk Level:: Medical - moderate - high VTE Device Contraindication: Treatment Not Indicated VTE Drug Contraindication: N/A - Med Ordered
--- NOTE | 2023-12-27 09:43 | PC.NURSE ---
repositioned. NAD. ski pwd. unlabored resp. no complaints.
[2023-12-27 10:06] LABS: Hematocrit 36.3 % (37.0-47.0); Hemoglobin 12.4 g/dl (12.0-16.0); Mean Corpuscular HGB Conc 34.2 g/dl (31.0-35.0); Mean Corpuscular Hemoglobin 30.8 pg (27.0-33.0); Mean Corpuscular Volume 90.1 fL (80.0-98.0); Mean Platelet Volume 10.9 fL (9.4-12.3); Platelet Count 264 X10*3/uL (160-400); Red Blood Count 4.03 X10*6/uL (4.20-5.50); Red Cell Distribution Width 13.6 % (11.0-16.0); White Blood Count 7.2 X10*3/uL (4.8-10.8)
[2023-12-27 10:36] LABS: Anion Gap 12 (12-20); Blood Urea Nitrogen 16 mg/dL (9-16); Calcium 9.4 mg/dL (8.4-10.2); Carbon Dioxide 24 mmol/L (22-29); Chloride 104 mmol/L (96-108); Creatinine Clr Calc Pharmacy 59.7; Estimated Glomerular Filt Rate > 60; Glucose Fasting 95 mg/dL (60-99); Magnesium 1.9 mg/dL (1.6-2.6); Potassium 3.9 mmol/L (3.3-5.1); Sodium 136 mmol/L (135-145)
[2023-12-27 11:43] VITALS: BP 125/65; PULSE 82; RESP 18; TEMP 37.1; O2SAT 97
--- NOTE | 2023-12-27 11:46 | PC.NURSE ---
resting in bed. unlabored resp. skin pwd. interacting with son at known baseline for mentation. brought PO fluids.
--- NOTE | 2023-12-27 14:48 | MHC.CM.PN ---
PT ADMITTED FROM [facility] WHERE FAMILY DOES NOT HER TO RETURN PT WILL EITHER GO BACK TO [facility] WITH RESUMPTION OF AMEYDYSIS ,INTERIM FOR 6 HRS OF CARE Thu AND THU AND IF NEEDED PP HELP WILL BE ADDED BY FAMILY, IF PT IS MADE PALLATIVE CARE PT WILL GO WITH THESE SAME SERVIES TO ONE OF HER CHILDRENS HOMES [address];JEFF TBD
[2023-12-27 15:12] VITALS: BP 116/59; PULSE 94; RESP 16; TEMP 37.2; O2SAT 97
--- NOTE | 2023-12-27 15:51 | MHC.CM.PN ---
CALLED AND LEFT MESSAGE FOR QUETA, PTS SON REQUEST
--- NOTE | 2023-12-27 16:06 | MHC.CM.PN ---
called and left message for pt son jaye who requested i contact him
[2023-12-27 17:40] VITALS: BP 115/43; PULSE 93; RESP 16; TEMP 37.3; O2SAT 95
--- NOTE | 2023-12-27 18:57 | PC.NURSE ---
resting quietly. NAD. unlabored resp. son has been at bedside and was hoping to speak with case management. Irina Campos contacted earlier but unavailable to come to bedside. Patient needs full assist to eat. Son had helped while present. Boots removed at patient's request.
[2023-12-27] MEDS: levoFLOXacin/D5W 500 MG/100 ML PIGGYBACK 100 MG IV (21:28)
[2023-12-27 21:29] VITALS: BP 90/49; PULSE 84; RESP 16; TEMP 37.2; O2SAT 96
--- NOTE | 2023-12-27 23:00 | PC.NURSE ---
Assumed care of this patient at 1900, patient repositioned in bed, give PM snack pudding, hydralazine PO held per protocol. patient resting quietly on hospital bed at this time.
[2023-12-28 01:29] VITALS: BP 116/59; PULSE 91; RESP 16; TEMP 37.2; O2SAT 99
[2023-12-28 05:04] VITALS: BP 129/64; PULSE 88; RESP 15; O2SAT 99
[2023-12-28 06:31] VITALS: BP 129/64; PULSE 72; RESP 15; TEMP 36.7; O2SAT 97
--- NOTE | 2023-12-28 08:14 | PC.NURSE ---
Pt.'s daughter, Lidia, requesting to speak with this RN for an update on her mother. Update given, and daughter expresses appreciation for taking the time to speak. Lidia would like to leave her number and will be leaving for a little while - [phone]
[2023-12-28 10:05] VITALS: BP 150/75
[2023-12-28] MEDS: Enoxaparin Sodium 40 MG/0.4 ML SYRINGE SUBCUT (10:05)
[2023-12-28] MEDS: lisinopriL 20 MG TABLET PO (10:05)
[2023-12-28] MEDS: hydrALAZINE HCl 50 MG TABLET PO (10:05)
[2023-12-28] MEDS: Memantine HCl 5 MG TABLET PO (10:05)
--- NOTE | 2023-12-28 10:06 | PC.NURSE ---
Pt. medicated per MAR. Daughter updated. No complaints
--- NOTE | 2023-12-28 12:36 | PC.NURSE ---
Provider is awaiting x-ray results prior to d/c
--- NOTE | 2023-12-28 12:41 | PM.DS ---
DS: Providers Provider Date of Service: 12/28/23 Date of admission: 12/26/23 21:43 Primary care physician: Alex Ortiz MD DS: Diagnosis Discharge Diagnosis (1) Urinary tract infection: Status: Acute DS: Summary Hospital Course Hospital Course: HPI from admission H&P: 83F PMH pafib, htn, hld, aortic stenosis, unspecified dementia presented with weakness. patient [place] [facility] [place] 12/18/23 for covid, bradycardia, and uti. was discharged on levaquin, covid was mostly asymptomatic, brdaycardia resolved after stopping metoprolol. was discharged to SNF. now returning for increased weakness, decreased po intake. in ED low grade temp of 100.2, signs of dehydration with bun of 21. ua with pyuria, bacturia. Hospital Course: Patient presented with weakness and was found to have a low-grade fever along with a UA suggestive urinary tract infection. Given her presenting weakness and encephalopathy she was empirically initiated on IV levofloxacin. She had significant improvement with hydration and 24 hours of antibiotics. Although her urine cultures have showed no growth given her prior Pseudomonas in the urine as well as improvements with the appropriate treatment, we will elect to treat for 5 more days for total of 7 days of treatment. The patient care was also discussed with her daughter who reports that she has the healthcare proxy. In discussion, a repeat physical therapy evaluation and possible short-term rehab was offered. However family has elected for her to return to assisted living and are in discussions for transition to palliative care. She will have VNA and physical therapy services at assisted living ordered. Of note, the patient had complaints of left wrist and knee pain. A x-ray has been ordered for both with results showing no acute fractures, but OA. Time Attestation Discharge Coordination Time (in mins): 45 Quality: Safe Use of Opioids Does Pt have an Active Cancer Diagnosis on the Problem List?: No Quality: Stroke Does the patient have a stroke diagnosis?: No Physical Exam Vital Signs: Vital Signs: Last Vital Signs Temp 98.1 F 12/28/23 06:31 Pulse 72 12/28/23 06:31 Resp 15 12/28/23 06:31 BP 150/75 H 12/28/23 10:05 Pulse Ox 97 12/28/23 06:31 O2 Del Method Room Air 12/28/23 06:31 BMI result Body Mass Index 24.9 Const: Other: General - no acute distress, appears comfortable Cardiovascular - regular rate and rhythm, S1-S2 Lungs - normal respiratory effort, clear to auscultation bilaterally, no wheezing Abdomen - soft, nontender, no rebound or guarding Extremities - trace L wrist edema and tenderness, ROM appears in tact; L knee without significant bony tenderness Neuro - awake and alert, no focal deficits DS: Data Data Completed and Pending Labs on day of discharge: Preliminary micro results at discharge 12/26/23 18:37 Urine Culture - Preliminary Urine Catheterized - Straight Catheter No growth to date. Discharge Plan Discharge Anticipated Discharge Date/Time: 12/28/23 12:37 Patient Disposition: Xfer Other Discharge Diagnosis: UTI, confusion, weakness Referrals: Jovon Rizo [Other] - 1 Week Alex Ortiz MD [Primary Care Provider] - 1 Week Discharge Medications: New levofloxacin 500 mg tablet 500 mg PO DAILY Qty: 5 0RF Continued lisinopril 40 mg tablet 40 mg PO DAILY acetaminophen [Tylenol] 325 mg Tablet 650 mg PO Q6H PRN (Reason: Pain) hydralazine 25 mg Tablet 25 mg PO BID magnesium hydroxide [Milk of Magnesia] 400 mg/5 mL Suspension 30 ml PO DAILY PRN (Reason: Constipation) bisacodyl [Dulcolax (bisacodyl)] 10 mg Suppository 10 mg [place] DAILY PRN (Reason: Constipation) Fleet Enema 19-7 gram/118 mL Enema 118 ml [place] DAILY PRN (Reason: Constipation) aspirin 81 mg Tablet,Chewable 81 mg PO DAILY memantine 10 mg tablet 10 mg PO DAILY Discontinued nystatin 100,000 unit/mL Suspension 500,000 unit PO QID Rx Instructions: administer 1/2 of dose in each side of the mouth; END DATE: 12/31/23 enoxaparin [Lovenox] 40 mg/0.4 mL Syringe 40 mg SUBCUT DAILY Discharge Orders: Discharge Order (Routine); Ordered 12/28/23 Ordered By: Pratik Higgins Diet: Advance to usual diet Activity on Discharge: As tolerated Stand Alone Forms: Patient Portal Discharge page Print Language: Syriac Care Plan Goals: To stay healthy and out of the hospital. Health Concerns: see d/c summary Plan of Treatment: see d/c summary Assessment: see d/c summary
--- NOTE | 2023-12-28 12:47 | W.MHC.F2F ---
Service Date Service Date: 12/28/23 Encounter Date of encounter: 12/28/23 Reasons for Services Signs and symptoms assessed: mobility neuro assessment Reason for residential: neurological assessment and medication management Reason for physical therapy: home safety and mobility and therapeutic exercises Overseeing Care: Alex Ortiz Homebound: Leaving the home is medically contraindicated at this time without the asist of a device and/or another person due th the listed conditions above and below. Reason homebound: unsteady gait / fall risk and cognitively impaired / unsafe Homebound supporting statement: Pt with dementia and recent multiple hospitalization. At risk for falls due to weakness and cognitive impairment Certification: Based on the above findings, I certify that this patient is confined to the home and needs intermittent residential care, physical therapy and/or speech therapy, or continues to need occupational therapy. The patient is under my care, and I have initiated the establishment of the plan of care. The patient will be followed by a physician who will periodically review the plan of care. Time Spent With Patient Time: Total time managing care of this patient today ____ minutes.
--- NOTE | 2023-12-28 13:38 | MHC.CM.PN ---
Pt has been medically cleared for DC. She came to hosp. from [facility], she was there for STR, and the dtr / HCP said that they do not want pt. to return there, instead they want her to return to [facility]. CM has contacted nurse at [facility] about pt returning there, and was told that they will need to conduct an assessment before she can come back. This assessment was requested for as soon as possible, pt and family informed.
--- NOTE | 2023-12-28 15:43 | PC.NURSE ---
Pt.'s family opting for an ambulance back to facility. Urmila Shelby coordinating this at this time.
--- NOTE | 2023-12-28 15:53 | MHC.CM.PN ---
Pt has been medically cleared for DC. DCP is for her to return to [facility] per family request rather than [facility], where she was for STR. CM spoke to nurse at [facility], she said that she will come today to assess pt. to return. Family insisted that pt go back and that she does not have to wait for an assessment. NEW spoke with family, dtr, Lidia, and them know that I will arrange for ambulance, dtr said that son in coming with a van. After some discussion, family agreed to have pt go via BLS, this has been arranged. VM message left for nurse, Digna, at [facility] that pt is on her way back.
--- NOTE | 2023-12-28 17:32 | MHC.CM.PN ---
CM spoke with daughter/HCP Lidia ([phone]) and son, Papi ([phone]).Awaiting for S transport to [facility]. Requesting resources for palliative/hospice, home help agencies and assisted living that care for advanced dementia. Given resources. Will make hospice referrals.
[2023-12-28 18:37] VITALS: BP 150/75; PULSE 72; RESP 15; TEMP 36.7; O2SAT 97
== END 2023-12-28 16:22 | disposition home health service (06) | DRG 689 ==
LOC: HO.ED 17:24 → HO.EDOVER 21:49 → HO.IMC 12-28 15:25
PROVIDERS: Physician Assistant Medical; Admitting Provider Internal Medicine; Emergency Provider Emergency Medicine Emergency Medical Services; PCP Internal Medicine; Visit Provider Family Medicine
DX: N39.0 Urinary tract infection, site not specified (principal); G93.41 Metabolic encephalopathy; U07.1 COVID-19; F03.90 Unspecified dementia, unspecified severity, without behavioral disturbance, psychotic disturbance, mood disturbance, and anxiety; I10 Essential (primary) hypertension; E86.0 Dehydration; I35.0 Nonrheumatic aortic (valve) stenosis; Z79.899 Other long term (current) drug therapy; Z87.891 Personal history of nicotine dependence; Z79.82 Long term (current) use of aspirin; Z87.440 Personal history of urinary (tract) infections
CPT/HCPCS: 0241U; 36415; 71046; 73100; 73560; 80048; 80053; 81001; 83735; 84484; 85025; 85027; 87086; 87502; 87651; 93005; 99285; J0131; J1650; J1956

== ENCOUNTER → 2023-12-26 21:43 | Outpatient (BNV) | payer OTHER, MEDICARE, SELFPAY | PROVIDERS: Admitting Provider Internal Medicine; Emergency Provider Emergency Medicine Emergency Medical Services; Visit Provider Internal Medicine | DX: N39.0 Urinary tract infection, site not specified (principal) | CPT/HCPCS: 99222; 99232; 99239; G0180 ==